=== PATIENT | female | born 2000 | race Caucasian/White ===

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

== ENCOUNTER 2019-02-05 16:07 | Emergency (ER) | payer SELFPAY ==
[2019-02-05 16:14] VITALS: BP 106/63; PULSE 84; RESP 16; TEMP 36.7; O2SAT 98
--- NOTE | 2019-02-05 17:38 | ED.GENADUL_ITS ---
Discharge Plan Disposition Patient Disposition: HOME Condition: Stable Discharge Details Chief Complaint: EyeProblem Clinical Impression: Hordeolum externum (stye) Primary Care Provider: Zhane Doyle V ED Provider: William Hernandez Home Meds and New Rx's Prescriptions: Continued sertraline 25 mg tablet 25 mg PO DAILY MDD 75 Qty: 60 RF: 1 sertraline 50 mg tablet 50 mg PO DAILY MDD 75 Qty: 60 RF: 1 melatonin 3 mg tablet 3 mg PO HS PRN (Reason: sleep) Qty: 30 RF: 2 Nexplanon 68 mg implant 1 implant SBD ONCE Qty: 1 RF: 0 levonorgestrel [Plan B One-Step] 1.5 mg tablet 1.5 mg PO ONCE Qty: 1 RF: 0 Discharge Instructions Instructions: Renetta (ED) Additional Instructions: Please apply warm compresses to your right eye at least 4 times a day for the next couple days. Continue to monitor this and return immediately for any signs of infection. It is also recommended that you change out any of your make-up brushes. If not improving over the next couple weeks you may also follow-up with your primary care provider or [facility] for reassessment. Referrals: Zhane Doyle MD [Primary Care Provider] - (As needed for reassessment) Discharge Data Discharge Date/Time-TO BE ENTERED AT DEPARTURE: 02/05/19 17:46 Medical Decision Making 2 days ago patient noticed a swelling lump to the right inner canthus of her lower lid. Patient has physical exam findings consistent with stye. No signs of infection and eye exam is otherwise unremarkable. Discussed with patient warm compresses and to follow-up with primary care provider or [facility] for reassessment if not improving over the next couple weeks or to return immediately for any signs of infection. HPI General Mode of arrival: ambulatory . Date/Time Provider Initiated Documentation: 02/05/19 16:41 . Limitations to Documentation: no limitations . Information obtained by: patient . History of Present Illness 18 year old F presents to the emergency department with the chief complaint of right eye swelling, Quality is described as other (denies pain), and is localized to the eyes and right. Patient started experiencing this day(s) (2) and it has been constant. No relieving factors improve symptom(s), No exacerbating factors reported . Patient notes no other symptoms.. Patient did receive the following treatments prior to arrival, none Related Data Home Medications Medication Instructions Recorded Confirmed levonorgestrel 1.5 mg tablet 1.5 mg PO ONCE #1 tab 05/29/18 08/24/18 melatonin 3 mg tablet 3 mg PO HS PRN #30 tab 08/10/18 08/24/18 sertraline 25 mg tablet 25 mg PO DAILY #60 tab MDD 75 08/10/18 08/24/18 sertraline 50 mg tablet 50 mg PO DAILY #60 tab MDD 75 08/10/18 08/24/18 etonogestrel 68 mg subdermal 1 implant SBD ONCE #1 each 08/24/18 08/24/18 implant Previous Rx's Medication Instructions Recorded levonorgestrel 1.5 mg tablet 1.5 mg PO ONCE #1 tab 05/29/18 melatonin 3 mg tablet 3 mg PO HS PRN #30 tab 08/10/18 sertraline 25 mg tablet 25 mg PO DAILY #60 tab MDD 75 08/10/18 sertraline 50 mg tablet 50 mg PO DAILY #60 tab MDD 75 08/10/18 etonogestrel 68 mg subdermal 1 implant SBD ONCE #1 each 08/24/18 implant Allergies Allergy/AdvReac Type Severity Reaction Status Date / Time No Known Allergies Allergy Unverified 02/05/19 16:17 General Stated Complaint: EyeProblem LICHA: 4 Review of Systems Constitutional Denies fever(s) and Denies headache(s) Eyes Reports as per HPI, Denies blurry vision, Denies diplopia, Denies eye discharge, Denies irritation, Denies itchy eyes, Denies loss of vision and Denies eye pain ENT Denies headache(s), Denies nasal congestion and Denies nasal discharge Neurologic Denies headache(s) and Denies loss of vision Allergic/Immunologic Denies itchy eyes PFSH Family History Mother Breast cancer Cancer of kidney Father Diabetes Essential hypertension Stroke Brother Essential hypertension Social History Smoking/Tobacco Use Status: Never Drug use: Never Do you feel safe in your relationship?: Yes Additional Social history: kicked out of mothers house, living w/ sister Female Reproductive History Menstrual control method: implanted (placed by Jhoana Addison NP [id number] EXP=11/2020) History History 2 Para 0 Hx # Term Pregnancies Multiple births Hx # Pregnancies Ectopic pregnancies AB induced 1 Hx Number of Living Children AB spontaneous 1 Exam Const General: cooperative, no acute distress and not ill appearing Orientation: alert, awake and oriented x3 HENMT Mouth: moist mucous membranes Eyes Visual [place]: normal visual monroy by confrontation Alignment and Position: alignment normal and position normal Periorbital: periorbital findings normal Eyelids: eyelid abnormality right lower eyelid swelling (Lower right inner canthus); without erythema Conjunctivae: conjunctivae normal Sclera: sclerae normal Pupils: PERRL and accommodation normal EOM: EOM intact bilaterally Resp Effort & Inspection: normal respiratory effort, able to speak in complete sentences and no respiratory distress Course Vital Signs Temperature 36.7 C 02/05/19 16:14 Pulse 84 02/05/19 16:14 Respiratory Rate 16 02/05/19 16:14 Blood Pressure 106/63 02/05/19 16:14 Pulse Oximetry 98 02/05/19 16:14 Temperature 36.7 C 02/05/19 16:14 Temperature Source Skin 02/05/19 16:14 Pulse 84 02/05/19 16:14 Respiratory Rate 16 02/05/19 16:14 Blood Pressure 106/63 02/05/19 16:14 Blood Pressure Position Sitting 02/05/19 16:14 Pulse Oximetry 98 02/05/19 16:14 Oxygen Delivery Method Room Air 02/05/19 16:14 Oxygen Flow Rate 0 02/05/19 16:14
== END 2019-02-05 17:46 | disposition home or self-care (01) ==
PROVIDERS: Emergency Provider Nurse Practitioner Family; PCP Pediatrics
DX: H00.022 Hordeolum internum right lower eyelid (principal)
CPT/HCPCS: 99282

== ENCOUNTER 2019-05-22 22:02 | Emergency (ER) | payer SELFPAY ==
[2019-05-22 22:07] VITALS: BP 114/70; PULSE 80; RESP 16; TEMP 36.6; O2SAT 98
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
[2019-05-22] MEDS: Ibuprofen 600 MG TAB PO (22:39)
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
[2019-05-22 23:30] VITALS: BP 107/78; PULSE 71; RESP 16; TEMP 36.6; O2SAT 100
--- NOTE | 2019-05-22 23:30 | NUR.NOTE ---
Splint to right wrist, educated on use. Discharge instructions reviewed with verbal understanding. aware to f/u with pcp as needed. ambulated to exit with steady gait.
== END 2019-05-22 23:30 | disposition home or self-care (01) ==
PROVIDERS: Emergency Provider Emergency Medicine; PCP Nurse Practitioner
DX: S60.221A Contusion of right hand, initial encounter (principal); S63.501A Unspecified sprain of right wrist, initial encounter; W22.8XXA Striking against or struck by other objects, initial encounter
CPT/HCPCS: 99284; 73110; 73130; 99282; L3908

== ENCOUNTER 2019-09-02 17:35 | Emergency (ER) | payer SELFPAY ==
[2019-09-02 17:38] VITALS: BP 114/57; PULSE 84; RESP 18; TEMP 36.5; O2SAT 100
[2019-09-02 17:52] LABS: Bilirubin Negative (Negative); Blood Trace-intact (Negative); Clarity Cloudy (Clear); Glucose Negative (Negative); Ketones Negative (Negative); Leukocyte Esterase Negative (Negative); Nitrite Negative (Negative)
[2019-09-02 18:01] LABS: Bacteria Packed HPF (Negative); C & S Indicated? Yes; Crystals Negative HPF (Negative); Epithelial Cells Many HPF (Negative); Mucus Negative (Negative); RBC 0-2 HPF (0-2)
[2019-09-02] MEDS: Ketorolac 30 MG/ML VIAL IVP (18:35)
[2019-09-02 18:46] LABS: Abs Immature Grans 0.02 k/cumm (0.0-0.09); Absolute Basophil Count 0.05 k/cumm (0.0-0.2); Absolute Eosinophil Count 0.33 k/cumm (0.0-0.7); Absolute Monocyte Count 1.14 k/cumm (0.11-0.7); Absolute Neutrophil Count 7.01 k/cumm (1.2-6.7); Basophils % 0.5; HCT 37.5 % (36.0-46.0); HGB 13.1 g/dL (12.0-15.5); Immature Grans % 0.2 %; Lymphocytes % 21.9; Mean Corp. HGB Concentration 34.9 g/dL (32.0-36.0); Mean Corpuscular Hemoglobin 31.7 pg (27.0-33.0); Mean Corpuscular Volume 90.8 fL (80-95); Monocytes % 10.4; Platelet Count 310 x1000/uL (130-400); RBC 4.13 m/cumm (4.00-5.20); RBC Distribution Width 12.6 % (11.7-14.6); White Blood Cell Count 10.95 k/cumm (4.4-10.8)
[2019-09-02 19:12] LABS: ALT 23 U/L (14-59); AST 16 U/L (15-37); Albumin 3.8 g/dL (3.4-5.0); Alkaline Phosphatase 58 U/L (46-116); Anion Gap 9.2 mmol/L (3-11); BUN 9 mg/dL (7-18); Bilirubin, Total 0.5 mg/dL (0.2-1.0); CO2 26.8 mmol/L (21.0-32.0); CREATININE 0.63 mg/dL (0.55-1.02); Calcium 8.3 mg/dL (8.5-10.1); Chloride 105 mmol/L (98-107); Glucose 86 mg/dL (74-106); Potassium 3.8 mmol/L (3.5-5.1); Sodium 141 mmol/L (136-145); Total Protein 7.4 g/dL (6.4-8.2)
--- NOTE | 2019-09-02 19:14 | NUR.NOTE ---
Assumed care of pt. Report from Jackelyn. Lying in bed in NAD, family at bedside. Reports pain improved to 4/10, worse with movement. awaiting lab results, provided with snack.
[2019-09-02 19:25] VITALS: BP 101/70; PULSE 70; RESP 16; TEMP 36.6; O2SAT 100
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
[2019-09-02] MEDS: MacroBID 100 MG CAP PO ×2 (19:35→19:57)
--- NOTE | 2019-09-03 11:48 | PDOC.ERCMPRO ---
- If Service Date Differs Date of service: 09/03/19 Time of Service: 11:48 Care Management Progress Note SWEETIE contacts Kathie by telephone to discuss referrals, health insurance, and medication issues. Kathie already met with Angel at [facility] this morning to address her lack of health insurance. She, however, did not discuss with Angel her inability to pay for the medication prescribed by ED provider yesterday. SWEETIE speaks with Nelsy at [facility] to request their assistance in paying for the medication. Nelsy agrees to follow-up with the pharmacy. SWEETIE also faxes referrals to [facility] on behalf of patient.
== END 2019-09-02 20:00 | disposition home or self-care (01) ==
PROVIDERS: Emergency Provider Physician Assistant; PCP Nurse Practitioner
DX: N39.0 Urinary tract infection, site not specified (principal); B96.89 Other specified bacterial agents as the cause of diseases classified elsewhere; R10.30 Lower abdominal pain, unspecified; N93.9 Abnormal uterine and vaginal bleeding, unspecified
CPT/HCPCS: 80053; 81025; 87077; 96374; 99284; 81003; 81015; 85025; 87086; 87186; 99283; J1885

== ENCOUNTER 2019-09-04 18:50 | Outpatient (REF) | payer SELFPAY ==
[2019-09-06 12:33] LABS: Chlamydia Result Negative (Negative); GC Result Negative (Negative)
== END 2019-09-04 19:10 ==
LOC: LBN 18:50
PROVIDERS: PCP Nurse Practitioner; Visit Provider Nurse Practitioner Women's Health
DX: Z11.3 Encounter for screening for infections with a predominantly sexual mode of transmission (principal)
CPT/HCPCS: 87491; 87591

== ENCOUNTER 2019-09-07 04:15 | Outpatient (CLI) | payer SELFPAY ==
--- NOTE | 2019-09-07 07:45 | DI.US_ITS ---
EXAM: US PELVIS TRANSVAGINAL CLINICAL HISTORY: pelvic pain, R10.2 TECHNIQUE: Transabdominal and transvaginal exams were performed. COMPARISON: No exams were available for comparison FINDINGS: The uterus measures 7.8 x 2.8 x 4.4 cm. The endometrial stripe measures 3 millimeters in thickness. Follicles are seen on both ovaries. No cyst or mass is seen. There is no evidence of torsion. Th ere is no evidence of free fluid or hydronephrosis. IMPRESSION: Negative pelvic ultrasound. DATA REPOSITORY:
== END 2019-09-07 04:35 ==
PROVIDERS: PCP Nurse Practitioner; Visit Provider Nurse Practitioner Women's Health
DX: R10.2 Pelvic and perineal pain (principal)
CPT/HCPCS: 76830; 76856

== ENCOUNTER 2019-10-18 14:07 | Emergency (ER) | payer MEDICAID, SELFPAY ==
[2019-10-18 14:11] VITALS: BP 111/72; PULSE 96; RESP 18; TEMP 36.8; O2SAT 97
--- NOTE | 2019-10-18 14:28 | ED.GENADUL_ITS ---
Discharge Plan Disposition Patient Disposition: HOME Condition: Stable Discharge Details Chief Complaint: Sorethroat Clinical Impression: Pharyngitis Primary Care Provider: None,None ED Provider: Dipesh Grissom Home Meds and New Rx's Prescriptions: No Action Nexplanon 68 mg implant 1 implant SBD ONCE Qty: 1 RF: 0 Discharge Instructions Instructions: Pharyngitis (ED) Additional Instructions: Rapid strep test is negative, culture pending. [id number] medications as directed for discomfort. Practice good handwashing. I have given you a return to work note. Please watch for new or worsening symptoms and return to the ER for any concerns Stand Alone Forms: Work Release Medical Decision Making 19-year-old female presenting to the ER requesting a note so that she may return to work. Patient reports that she has not been around anyone who is known Covid positive, nor has she had any recent travel. Denies any shortness of breath, cough, or documented fever. 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 Patient appears well, nontoxic. No clear indication for Covid testing Rapid strep negative, culture pending Medical Records Medical records reviewed: Yes I reviewed the patient's medical records. HPI General Mode of arrival: ambulatory . Date/Time Provider Initiated Documentation: 10/18/19 14:08 . Limitations to Documentation: no limitations . Information obtained by: patient . HPI Narrative: 19-year-old female presents to the ER today requesting a work note stating that she may return to work does not have strep throat. She reports mild global headache, nasal congestion, sore throat, subjective fever for the past 4 or 5 days, symptoms are improving. She has taken owqx-jzu-koyaogm medication with decent resolution of her symptoms. She reports that her siblings were diagnosed with strep throat 2 days ago. Patient does not personally believe that she has strep throat and only has a common cold. She denies ear pain, neck pain, cough, shortness of breath, pains in her chest and abdominal pain, nausea, vomiting, dysuria, skin rash Related Data Home Medications Medication Instructions Recorded Confirmed etonogestrel 68 mg subdermal 1 implant SBD ONCE #1 each 08/24/18 10/18/19 implant Previous Rx's Medication Instructions Recorded etonogestrel 68 mg subdermal 1 implant SBD ONCE #1 each 08/24/18 implant Allergies Allergy/AdvReac Type Severity Reaction Status Date / Time sertraline AdvReac increased Unverified 10/18/19 14:16 anxiety and depression General Stated Complaint: Sorethroat LICHA: 4 Review of Systems Constitutional Constitutional: Reports fever(s) (Subjective) Eyes Eyes: Denies eye discharge ENT Ears, Nose, Mouth, and Throat: Denies otalgia, Reports nasal congestion and Rep orts sore throat Cardiovascular Cardiovascular: Denies chest pain and Denies dyspnea Respiratory Respiratory: Denies cough and Denies dyspnea Gastrointestinal Gastrointestinal: Denies abdominal pain, Denies diarrhea, Denies nausea and Denies vomiting Genitourinary Genitourinary: Denies dysuria Musculoskeletal Musculoskeletal: Denies myalgias Integumentary/Breasts Skin/Breast: Denies rash PFSH Family History Mother Breast cancer Cancer of kidney Father Diabetes Essential hypertension Stroke Brother Essential hypertension Social History Smoking/Tobacco Use Status: Never Alcohol Intake: current Alcohol Intake frequency: holidays/special occasions only Drug use: Occasionally Substance use type: does not use and marijuana Do you feel safe at home: Yes Do you feel safe in your relationship?: Yes Additional Social history: kicked out of mothers house, living w/ sister Female Reproductive History Menstrual control method: implanted (placed by Jhoana Addison NP JCZ=[id number] EXP=11/2020) History History 2 Para 0 Hx # Term Pregnancies Multiple births Hx # Pregnancies Ectopic pregnancies AB induced 1 Hx Number of Living Children AB spontaneous 1 Exam Const General: cooperative, healthy appearing, comfortable and no acute distress Orientation: alert, awake and oriented x3 HENMT Head: normal to inspection, normocephalic and atraumatic Ears: external ears normal, TM's normal bilaterally and EAC's normal Mouth: moist mucous membranes Throat: posterior oropharynx normal Eyes Conjunctivae: conjunctivae normal Neck Neck: normal visual inspection, full ROM, no lymphadenopathy, no meningeal signs, trachea midline and supple Resp Effort & Inspection: normal respiratory effort and able to speak in complete sentences Auscultation: clear to auscultation bilaterally Cardio Rate: regular rate Rhythm: regular rhythm Skin General skin exam: no rashes or lesions noted Neuro General: patient alert, patient awake, moves all extremities and no focal motor deficits Sensory Exam: no sensory deficits noted Psych Appearance: grossly normal Mental Status: mental status grossly normal Course Vital Signs Vital signs: Vital Signs Temperature 36.8 C 10/18/19 14:11 Pulse 96 H 10/18/19 14:11 Respiratory Rate 18 10/18/19 14:11 Blood Pressure 111/72 10/18/19 14:11 Pulse Oximetry 97 10/18/19 14:11 Temperature 36.8 C 10/18/19 14:11 Temperature Source Temporal Artery Scan 10/18/19 14:11 Pulse 96 H 10/18/19 14:11 Respiratory Rate 18 10/18/19 14:11 Respiratory Effort Non-Labored 10/18/19 14:15 Blood Pressure 111/72 10/18/19 14:11 Blood Pressure Position Sitting 10/18/19 14:11 Pulse Oximetry 97 10/18/19 14:11 Oxygen Delivery Method Room Air 10/18/19 14:11 Oxygen Flow Rate 0 10/18/19 14:11 Pain Level 8 10/18/19 14:11
== END 2019-10-18 14:50 | disposition home or self-care (01) ==
LOC: ER 14:48
PROVIDERS: Emergency Provider Physician Assistant; PCP Nurse Practitioner
DX: J02.9 Acute pharyngitis, unspecified (principal)
CPT/HCPCS: 87880; 99282; 87081

== ENCOUNTER 2020-02-11 09:28 | Emergency (ER) | payer MEDICAID, SELFPAY ==
[2020-02-11 09:32] VITALS: BP 103/59; PULSE 77; RESP 16; TEMP 36.5; O2SAT 96
--- NOTE | 2020-02-11 09:45 | DI.CT_ITS ---
EXAM: CT THORACIC LUMBAR SPINE WO CLINICAL HISTORY: low back pain right, fell from tree, paresthesias TECHNIQUE: COMPARISON: No exams were available for comparison FINDINGS: CT examination the thoracic and lumbar spine was performed utilizing multi slice acquisition and mult iplanar reconstruction. Visualized portions of the lungs are clear. No mediastinal hematoma. Unrem arkable appearance of visualized portions of the kidneys and aorta. No pelvic hematoma. No paraspin al hematoma. No evidence of fracture of the thoracic or lumbar spine. Intervertebral disc spaces are well maintai brittany. SI joints appear intact. IMPRESSION: Negative CT of thoracic and lumbar spine. No evidence of acute trauma.
--- NOTE | 2020-02-11 09:46 | ED.GENADUL_ITS ---
Discharge Plan Disposition Patient Disposition: HOME Condition: Stable Discharge Details Chief Complaint: Nk/Back Pain Clinical Impression: Fall from tree, Contusion of lower back Primary Care Provider: None,None ED Provider: Nacho Sauer Discharge Instructions Instructions: Contusion in Adults (ED) Additional Instructions: Please rest at home over the next few days. Avoid any activities that worsen pain. Please take ibuprofen over the counter. Take 600mg by mouth every 6 hours as needed for pain. Please take acetaminophen (tylenol) - 650mg every 6 hours by mouth as needed for pain. Use [id number] lidocaine patches. Dose according to label. Please contact your primary care physician to arrange follow-up. Return to the ER for any worsening or new concerning symptoms including return of any neurologic symptoms including numbness or weakness. Referrals: Ingris Fry [Emergency Nurse] - Discharge Data Discharge Date/Time-TO BE ENTERED AT DEPARTURE: 02/11/20 11:18 Medical Decision Making 10:00??19-year-old female presents 2 days after 11 foot fall with injury to her low back, here with persistent low back pain, paresthesias to her bilateral ante rior thighs that have now resolved, no bowel or bladder dysfunction. Patient is focally tender midline lower thoracic and lumbar spine. She has no saddle anesthesia. Strength and sensation intact bilateral lower extremities. Given mechanism of injury and exam findings with history of paresthesias I am concerned about the potential for spinal fracture. Plan to obtain CT of the lumbar and thoracic spine. Patient is hemodynamically stable. Abdominal exam benign. 11:00 --CT interpreted by radiology: Negative, no fracture, no injury Suspect spinal contusion. Given neurologic symptoms have resolved, plan will be to continue with NSAIDs and have her follow-up with her primary care physician. Usual customary discharge instructions were reviewed with the patient. HPI General Mode of arrival: ambulatory . Date/Time Provider Initiated Documentation: 02/11/20 09:43 . Limitations to Documentation: no limitations . Information obtained by: patient . HPI Narrative: 19-year-old female presents with chief complaint of back pain. Patient notes 2 days ago she fell approximately 11 feet from a tree to the ground. Back pain is localized to low back, worse on right side. Pain has persisted and is fairly constant. Pain worse with certain positions including lying flat on her back. She notes that she initially had tingling numbness bilateral lower extremities anterior thighs. This numbness persisted yesterday and has resolved today. She has been using ibuprofen. No associated bowel or bladder dysfunction. No abdominal pain. She did hit her head but denies headache or loss of consciousness. Related Data Allergies Allergy/AdvReac Type Severity Reaction Status Date / Time sertraline AdvReac increased Unverified 02/11/20 09:39 anxiety and depression General Stated Complaint: Nk/Back Pain LICHA: 4 Review of Systems All systems reviewed & are unremarkable except as noted in HPI and below Cardiovascular Cardiovascular: Denies chest pain and Denies dyspnea Respiratory Respiratory: Denies dyspnea Gastrointestinal Gastrointestinal: Denies abdominal pain Musculoskeletal Musculoskeletal: Reports as per HPI Neurologic Neurologic: Reports as per HPI PFSH Family History Mother Breast cancer Cancer of kidney Father Diabetes Essential hypertension Stroke Brother Essential hypertension Social History Smoking/Tobacco Use Status: Never Alcohol Intake: current Alcohol Intake frequency: holidays/special occasions only Drug use: Occasionally Substance use type: does not use and marijuana Do you feel safe at home: Yes Do you feel safe in your relationship?: Yes Additional Social history: kicked out of mothers house, living w/ sister Female Reproductive History Menstrual control method: implanted (placed by Jhoana Addison NP OHK=[id number] EXP=11/2020) History History 2 Para 0 Hx # Term Pregnancies Multiple births Hx # Pregnancies Ectopic pregnancies AB induced 1 Hx Number of Living Children AB spontaneous 1 Exam Const General: cooperative and no acute distress HENUT Head: normocephalic and atraumatic Mouth: moist mucous membranes Neck Neck: trachea midline and supple Resp Auscultation: clear to auscultation bilaterally, no rales, no rhonchi and no wheezes Cardio Rate: regular rate and not tachycardic Rhythm: regular rhythm GI Palpation: soft, not firm, no guarding, no masses, not rigid and nontender Back/Spine/Pelvis Cervical Spine: cervical ROM normal, No cervical spinal tenderness and No step off deformity Thoracic/Lumbar Spine: paraspinal tenderness (Right lumbar), thoracic spinal tenderness (Low thoracic midline) and lumbar spinal tenderness (Midline) Skin General skin exam: no rashes or lesions noted Neuro General: patient alert, patient awake, patient oriented x3 and tone normal Cognition: normal cognition Speech: speech normal Motor: strength 5/5 throughout (Bilateral lower extremities) Sensory Exam: no sensory deficits noted (Bilateral lower extremities including no saddle anesthesia) Extrem General: no edema Psych Appearance: grossly normal Mental Status: mental status grossly normal Course Vital Signs Vital signs: Vital Signs Temperature 36.5 C 02/11/20 09:32 Pulse 77 02/11/20 09:32 Respiratory Rate 16 02/11/20 09:32 Blood Pressure 103/59 L 02/11/20 09:32 Pulse Oximetry 96 02/11/20 09:32 Temperature 36.5 C 02/11/20 09:32 Temperature Source Skin 02/11/20 09:32 Pulse 77 02/11/20 09:32 Respiratory Rate 16 02/11/20 09:32 Respiratory Effort Non-Labored 02/11/20 09:37 Blood Pressure 103/59 L 02/11/20 09:32 Blood Pressure Position Sitting 02/11/20 09:32 Pulse Oximetry 96 02/11/20 09:32 Oxygen Delivery Method Room Air 02/11/20 09:32 Oxygen Flow Rate 0 02/11/20 09:32 Pain Level 5 02/11/20 09:39
[2020-02-11] MEDS: Lidocaine 5% Patch 1 PATCH TP (10:51)
[2020-02-11 11:12] VITALS: BP 102/68; PULSE 56; RESP 18; TEMP 36.7; O2SAT 99
== END 2020-02-11 11:18 | disposition home or self-care (01) ==
PROVIDERS: Emergency Provider Student in an Organized Health Care Education/Training Program
DX: S30.0XXA Contusion of lower back and pelvis, initial encounter (principal); W17.89XA Other fall from one level to another, initial encounter; R20.2 Paresthesia of skin
CPT/HCPCS: 81025; 99284; 72128; 72131; 99285

== ENCOUNTER 2020-04-13 03:33 | Emergency (ER) | payer MEDICAID, SELFPAY ==
[2020-04-13] VITALS (40 sets, daily range): BP systolic 69–113; BP diastolic 27–82; PULSE 81–132; RESP 13–30; TEMP 36.8; O2SAT 97–100
--- NOTE | 2020-04-13 03:30 | RT.EKG_ITS ---
APPROVED REPORT Exam: Resting ECG Patient Location: E HR:133 bpm ECG Measurements Heart Rate 133 AXIS NE 142 P 70 QRSd 86 QRS 78 QT 305 T -20 QTc 454 Conclusion Sinus tachycardia...rate> 99 Atrial premature complex...SV complex w/ short R-R interval I have reviewed and interpreted ECG and agree with software generated interpretation.
--- NOTE | 2020-04-13 03:46 | W.ED.GENAD ---
Discharge Plan Disposition Patient Disposition: HOME Condition: Good Discharge Details Chief Complaint: GenMedical Clinical Impression: Cannabis intoxication Primary Care Provider: None,None ED Provider: Jus Bautista Home Meds and New Rx's Prescriptions: No Action No Known Home Meds RF: 0 Discharge Instructions Additional Instructions: Avoid drugs in the future. Rest and hydrate over the weekend. Return to ED if any concerns or problems. Please remember to quarantine for 2 weeks after your return from [place]. Medical Decision Making Patient here after smoking and eating marijuana. She is anxious and paranoid as well as tachycardic. Denies other drugs or alcohol. Feels better and safe here. No SI or HI. Was not trying to harm self. Will place IV and give a liter of fluid as well as 0.5 of Ativan. 7 AM: Patient has received 2 L of fluid and had 0.5 mg of Ativan. Heart rate is in the 80s. She feels much better and less anxious. Patient safe for discharge home. HPI General Mode of arrival: EMS. Date/Time Provider Initiated Documentation: 04/13/20 03:46. Limitations to Documentation: no limitations. Information obtained by: patient and EMS. HPI Narrative: Patient presents by EMS after smoking marijuana and eating edibles. Subsequently has developed anxiety, paranoia, feels unsafe. She is not suicidal or homicidal. She has no pain or difficulty breathing. She had episodes of nausea and vomiting and still feels somewhat nauseated now. She was in [place] visiting family. Unclear at this time how long she has been back in [place]. She thinks somewhere between 1 to 2 weeks. She has no COVID symptoms. She feels better and safe now that she is here in the ED. Still feels quite anxious. Related Data Home Medications Medication Instructions Recorded Confirmed Unknown [No Known Home Meds] 04/13/20 04/13/20 Allergies Allergy/AdvReac Type Severity Reaction Status Date / Time sertraline AdvReac increased Unverified 04/13/20 04:22 anxiety and depression General LICHA: 4 Review of Systems Narrative: As documented in HPI otherwise negative as below. Const: no fever, chills, weakness Resp: no cough, SOB, pleuritic pain CV: no CP, diaphoresis, edema, syncope GI: no abdominal pain, diarrhea Neuro: no numbness, focal weakness, confusion [facility] Medical History Depression Surgical History No significant past surgical history Family History Mother Breast cancer Cancer of kidney Father Diabetes Essential hypertension Stroke Brother Essential hypertension Social History Smoking/Tobacco Use Status: Never Alcohol Intake: current Alcohol Intake frequency: holidays/special occasions only Drug use: Occasionally Substance use type: marijuana Do you feel safe at home: Yes Do you feel safe in your relationship?: Yes Additional Social history: kicked out of mothers house, living w/ sister. 03/14/20 Currently living with her Grandmother. Female Reproductive History Menstrual control method: implanted (placed by Jhoana Addison NP [id number]=[id number] EXP=11/2020) History History 2 Para 0 Hx # Term Pregnancies Multiple births Hx # Pregnancies Ectopic pregnancies AB induced 1 Hx Number of Living Children AB spontaneous 1 Exam Narrative Exam Narrative: Vitals: She is afebrile here. She is tachycardic into the 130 range. Normal blood pressure and room air pulse ox. Const: WDWN female in NAD. HEENT: NC/AT. Normal facial exam. Eyes: Dilated pupils that are reactive. Neck: Supple. Trachea midline. Lungs: Normal respiratory effort. Lungs are clear. Cor: RRR without murmur/gallop. Good radial pulses. Neuro: A+O x 3. Normal speech, mentation, gait. Cranial nerves II - XII grossly intact. No gross motor or sensory deficit. Ext: No C/C/E. Skin: Warm and dry without rash. Psych: Anxious, no SI or HI, no overdose was simply trying to get high
[2020-04-13] MEDS: Lactated Ringers 1,000 ML 1000 ML IV ×2 (04:24→04:59)
[2020-04-13] MEDS: LORazepam 2 MG/ML VIAL 0.5 MG IVP (04:25)
--- NOTE | 2020-04-13 04:56 | NUR.NOTE ---
Nursing Note: States she is feeling less anxious.
--- NOTE | 2020-04-13 05:53 | NUR.NOTE ---
Nursing Note: Discussed HR in one teens, soft B/P trend and 2 liters of LR have infused with Dr. Bautista. Will let patient continue to sleep. Patient wakes when you open the door to room.
== END 2020-04-13 07:40 | disposition home or self-care (01) ==
PROVIDERS: Emergency Provider Emergency Medicine
DX: F12.180 Cannabis abuse with cannabis-induced anxiety disorder (principal); F23 Brief psychotic disorder; R00.0 Tachycardia, unspecified
CPT/HCPCS: 81025; 93005; 96361; 96374; 99284; 93010; J2060

== ENCOUNTER 2020-04-29 21:06 | Emergency (ER) | payer MEDICAID, SELFPAY ==
[2020-04-29 21:09] VITALS: BP 117/68; PULSE 74; RESP 16; TEMP 36.5; O2SAT 99
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
--- NOTE | 2020-04-30 04:05 | NUR.NOTE ---
referral to care management for a pcp and a follow up about wrist pain in 2 weeks faxed out 04/30/20 [phone] - [facility] Nursing Note:
--- NOTE | 2020-05-01 10:12 | PDOC.ERCMPRO ---
- If Service Date Differs Date of service: 05/01/20 Time of Service: 10:12 Care Management Progress Note Kathie is seen in the ED on 04/29/20 for contusion of her left hand. At the request of JENNIFER Wakefield, ED provider, SWEETIE coordinates referral to [place] NP, of [facility], on-call provider, to assist patient in obtaining a follow up appointment and in establishing care with PCP. Kathie has Medicaid for insurance.
== END 2020-04-29 21:58 | disposition home or self-care (01) ==
PROVIDERS: Emergency Provider Physician Assistant
DX: S60.512A Abrasion of left hand, initial encounter (principal); V48.5XXA Car driver injured in noncollision transport accident in traffic accident, initial encounter
CPT/HCPCS: 29125; 81025; 99284; 73110; 73130; 99283; L3908

== ENCOUNTER → 2020-07-25 15:11 | Outpatient (REF) | payer MEDICAID, SELFPAY ==
--- NOTE | 2020-07-25 14:40 | PAPFT_PTH ---
PATIENT: Kathie Ureña LOC: [facility] U#:[id number] AGE/SX: 25/F ROOM: RE07/25/[address]: PAPI Melgar : 2000 BED: DIS: SPEC #: [id number] RECD: 07/25/20 16:47 STATUS: PONCHO MARKS #: [id number] MARIANNA: 07/25/20 14:[address]: Anny Abreu DEPT: [facility] Cytology RECD BY: Julia Quinonez ENTERED: 07/25/20 16:47 SP TYPE: PAPFT OTHR DR: None Tissues: 1 - CX/ENDOCX FOR PAP SMEARS Procedures: PAP THIN PREP/UVM Screening Comments: [id number]
[2020-07-28 14:08] LABS: GC Result Negative (Negative)
[2020-07-28 16:01] LABS: Chlamydia Result Positive (Negative)
== END ==
LOC: LBN 15:11
PROVIDERS: Visit Provider Nurse Practitioner Family
DX: Z12.4 Encounter for screening for malignant neoplasm of cervix (principal); Z11.3 Encounter for screening for infections with a predominantly sexual mode of transmission
CPT/HCPCS: 87491; 87591; 88142

== ENCOUNTER 2020-09-18 23:47 | Emergency (ER) | payer MEDICAID, SELFPAY ==
--- NOTE | 2020-09-18 23:49 | ED.GENADUL_ITS ---
Discharge Plan Disposition Patient Disposition: HOME Condition: Good Discharge Details Clinical Impression: Injury of left shoulder Primary Care Provider: None,None ED Provider: Jus Bautista Meds and New Rx's Prescriptions: Continued norgestimate-ethinyl estradiol [Sprintec (28)] 0.25-35 mg-mcg tablet 1 tab PO DAILY Qty: 84 RF: 3 Discharge Instructions Instructions: Early Postoperative or Post Injury Shoulder Exercises (ED) Additional Instructions: X-rays of the left shoulder are negative for fracture or dislocation. Injury is likely contusion to the rotator cuff and should improve over time with rest, ice, nonsteroidals. Sling for comfort but be sure to do range of motion exercises to keep your shoulder loose. Follow-up with occupational health next available appointment. Referrals: Occupational Medicine [Outside] Medical Decision Making Suspect this is all contusion to the rotator cuff. Doubt fracture though she is tender over the distal clavicle/AC joint area so x-ray will be obtained. If negative ice and nonsteroidals. Sling for comfort. Follow-up with occupational health. X-ray negative per my review. Sling for comfort, discharge and follow-up with occupational health. HPI General Mode of arrival: ambulatory . Date/Time Provider Initiated Documentation: 09/18/20 23:48 . Limitations to Documentation: no limitations . Information obtained by: patient and RN notes reviewed . HPI Narrative: Patient presents to ED with left shoulder injury that she sustained at work yesterday. She reports having a metal box fall striking her directly on the left shoulder. She continues to have pain today despite nonsteroidal use. She is unable to lift her arm above her head at all and is therefore unable to do her job. She sent in from work [employer] to the ED for evaluation. Pain is top of the shoulder. There is no numbness or weakness distally. There was no other injury and she was not struck anywhere in the head or neck. She is right-hand dominant. Related Data Home Medications Medication Instructions Recorded Confirmed norgestimate 0.25 mg-ethinyl 1 tab PO DAILY #84 tab 07/25/20 09/19/20 estradiol 35 mcg tablet Previous Rx's Medication Instructions Recorded norgestimate 0.25 mg-ethinyl 1 tab PO DAILY #84 tab 07/25/20 estradiol 35 mcg tablet Allergies Allergy/AdvReac Type Severity Reaction Status Date / Time sertraline AdvReac increased Unverified 09/19/20 00:08 anxiety and depression General LICHA: 4 Review of Systems Narrative: As documented in HPI otherwise negative as below. Const: no fever Resp: no cough, SOB CV: no CP Neuro: no headache, numbness, focal weakness PFSH Medical History Depression Surgical History No significant past surgical history Family History Mother Breast cancer Cancer of kidney Father Diabetes Essential hypertension Stroke Brother Essential hypertension Social History Smoking/Tobacco Use Status: Never Smoking risk assessment performed?: Yes Alcohol Intake: current Alcohol Intake frequency: holidays/special occasions only Drug use: Occasionally Substance use type: marijuana Do you feel safe at home: Yes Do you feel safe in your relationship?: Yes Additional Social history: kicked out of mothers house, living w/ sister. 03/14/20 Currently living with her Grandmother. Female Reproductive History Menstrual control method: implanted (placed by Jhoana Addison NP [id number]=[id number] EXP=11/2020) History History 2 Para 0 Hx # Term Pregnancies Multiple births Hx # Pregnancies Ectopic pregnancies AB induced 1 Hx Number of Living Children AB spontaneous 1 Exam Narrative Exam Narrative: Const: WDWN female in NAD. HEENT: NC/AT. Normal facial exam. Neck: Supple. Trachea midline. Lungs: Normal respiratory effort. Cor: Good radial pulses. Neuro: A+O x 3. Normal speech, mentation, gait. Cranial nerves II - XII grossly intact. No gross motor or sensory deficit. Ext: Left upper extremity with no deformity. Tender along the upper portion of the shoulder especially the AC joint.. Pain with both active and passive range of motion. Unable to bring her arm up over her head and elbow without significant pain. Neurovascularly intact distally.
[2020-09-18 23:52] VITALS: BP 105/58; PULSE 84; RESP 16; TEMP 36.7; O2SAT 97
--- NOTE | 2020-09-19 | DI.RAD_ITS ---
EXAM: XR SHOULDER LT COMPLETE 2+V CLINICAL HISTORY: trauma. TECHNIQUE: 2D digital imaging was performed. COMPARISON: No exams were available for comparison FINDINGS: BONES: No acute fracture is present. No bony destructive lesion is seen. JOINTS: No dislocation present. SOFT TISSUE: Normal. IMPRESSION: Unremarkable radiographs of the left shoulder. DATA REPOSITORY: RADIATION DOSE DELIVERED:
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
== END 2020-09-19 00:48 | disposition home or self-care (01) ==
PROVIDERS: Emergency Provider Emergency Medicine
DX: S49.92XA Unspecified injury of left shoulder and upper arm, initial encounter (principal); W20.8XXA Other cause of strike by thrown, projected or falling object, initial encounter; Y99.0 Civilian activity done for income or pay
CPT/HCPCS: 99283; 73030

== ENCOUNTER 2021-02-02 11:28 | Emergency (ER) | payer MEDICAID, SELFPAY ==
--- NOTE | 2021-02-02 11:30 | ED.GENADUL_ITS ---
Discharge Plan Disposition Patient Disposition: HOME Condition: Stable Discharge Details Clinical Impression: Depression Primary Care Provider: None,None ED Provider: Dipesh Grissom Home Meds and New Rx's Prescriptions: Continued norgestimate-ethinyl estradiol [Sprintec (28)] 0.25-35 mg-mcg tablet 1 tab PO DAILY Qty: 84 RF: 3 Discharge Instructions Instructions: Depression (ED), Anxiety (ED) Additional Instructions: At this time you have been offered a medical screening exam in the ER. Subsequently evaluated mental health team. Please follow the instructions given to you by our mental health team, they will help get you the resources locally that you are looking for.. Please watch for new or worsening symptoms and return to the ER for any concerns. I would like you to reach out to your primary care provider later today or tomorrow to discuss your ER visit and need for outpatient reevaluation. Medical Decision Making 20-year-old female presents requesting a mental health evaluation. Patient states ongoing anxiety depression, worsening after moving back to [place] 10 days ago. She smoked marijuana 2 days ago which she does not typically do, this made her symptoms even worse. She states at that time she had vague passive suicidal ideation but never wanted to act upon it and actually became mad at herself for having such thoughts. Patient denies any suicidal or homicidal ideations. She reports feeling safe. Patient would like to establish mental health care locally which she does not have currently. She is not seeking inpatient therapy. She appears to have very good insight and does not pose any threat to herself or others. I will request a mental health evaluation but will not initiatea CPSO for routine screening laboratory values. Mental health evaluation completed. Please see their note. Patient does not meet involuntary inpatient criteria, is not seeking voluntary placement, plan is for discharge with outpatient resources. I confirmed this with patient, she is comfortable this plan and has no additional questions or concerns. She has a safe place to go. She denies any suicidal or homicidal ideations. Upon discharge patient has no additional questions or concerns. Standard discharge and return precautions given. This documentation was generated using Mobile System 7 system, please disregard any oddities of phrase or misspellings. Medical Records Medical records reviewed: Yes I reviewed the patient's medical records. HPI General Mode of arrival: ambulatory . Date/Time Provider Initiated Documentation: 02/02/21 11:29 . Limitations to Documentation: no limitations . Information obtained by: patient . HPI Narrative: This is a 20-year-old female, reports past medical history of depression, who is recently out of a bad relationship, subsequently moved from [place] to [place] and now to [place] just 10 days ago presenting for increasing anxiety and depression. Patient states that she is very unhappy living in [place], and wishes she had a better support system, and more resources in the community. She has no acute medical concerns or complaints. Patient states that 2 days ago she smoked marijuana which she does not typically do and this caused her symptoms to be worse, at that time she states that she had a vague thoughts of suicide with no specific plan and never wanted to act upon her thoughts. She became angry at herself for having those thoughts in the first place and now she just feels like she is in my own head and cannot get out. Patient denies any active suicidal or homicidal ideations. She reports that she feels safe and has a safe place to be discharged to. She is not requesting inpatient therapy. She is simply hoping to have a mental health evaluation today and help expedite outpatient resources. She contacted the crisis team earlier today but felt as though they were not as helpful over the phone as she hoped, also contacted [facility] as a new primary care provider in the directed her to the ER for further evaluation. Related Data Home Medications Medication Instructions Recorded Confirmed norgestimate 0.25 mg-ethinyl 1 tab PO DAILY #84 tab 07/25/20 09/19/20 estradiol 35 mcg tablet Previous Rx's Medication Instructions Recorded norgestimate 0.25 mg-ethinyl 1 tab PO DAILY #84 tab 07/25/20 estradiol 35 mcg tablet Allergies Allergy/AdvReac Type Severity Reaction Status Date / Time sertraline AdvReac increased Unverified 09/19/20 00:08 anxiety and depression General LICHA: 4 Review of Systems Constitutional Constitutional: Denies fever(s) and Denies headache(s) ENT Ears, Nose, Mouth, and Throat: Denies headache(s) Cardiovascular Cardiovascular: Denies chest pain Respiratory Respiratory: Denies cough Gastrointestinal Gastrointestinal: Denies abdominal pain, Denies nausea and Denies vomiting Musculoskeletal Musculoskeletal: Denies back pain Integumentary/Breasts Skin/Breast: Denies rash Neurologic Neurologic: Denies headache(s) Psychiatric Psychiatric: Reports anxiety, Reports depression, Denies homicidal ideation and Denies suicidal ideation [facility] Medical History Depression Surgical History No significant past surgical history Family History Mother Breast cancer Cancer of kidney Father Diabetes Essential hypertension Stroke Brother Essential hypertension Social History Smoking/Tobacco Use Status: Never Smoking risk assessment performed?: Yes Alcohol Intake: never Drug use: Occasionally Substance use type: marijuana Do you feel safe at home: Yes Do you feel safe in your relationship?: Yes Female Reproductive History Menstrual control method: implanted (placed by Jhoana Addison NP IXE=[id number] EXP=11/2020) History History 2 Para 0 Hx # Term Pregnancies Multiple births Hx # Pregnancies Ectopic pregnancies AB induced 1 Hx Number of Living Children AB spontaneous 1 Exam Const General: cooperative, healthy appearing, comfortable and no acute distress Orientation: alert, awake and oriented x3 HENMT Head: normal to inspection, normocephalic and atraumatic Face and sinus: normal facial exam Mouth: moist mucous membranes Eyes General: appearance normal, both eyes and all related structures Conjunctivae: conjunctivae normal Neck Neck: normal visual inspection, trachea midline and supple Resp Effort & Inspection: normal respiratory effort and able to speak in complete sentences Auscultation: clear to auscultation bilaterally Cardio Rate: regular rate Rhythm: regular rhythm GI Palpation: soft and nontender Back/Spine/Pelvis Back: No back tenderness Skin General skin exam: no rashes or lesions noted Neuro General: patient alert, patient awake, patient oriented x3, moves all extremities and no focal motor deficits Cognition: normal cognition Speech: speech normal Gait: normal gait Sensory Exam: no sensory deficits noted Extrem General: normal to inspection and full ROM Psych Appearance: grossly normal Mental Status: mental status grossly normal Speech and Movement: speech and movement normal Mood: dysthymic mood Affect: sad Attitude: cooperative Thought Process: normal Thought Content: normal Insight: insight good Judgment: judgment good
[2021-02-02 11:35] VITALS: BP 128/72; PULSE 87; RESP 18; TEMP 36.6; O2SAT 95
--- NOTE | 2021-02-02 12:39 | PDOC.CMSAFED ---
- If Service Date Differs Date of service: 02/02/21 Time of Service: 12:39 Care Management Safety Plan Status: Voluntary - Reason for Wait Reason for Wait: Assessment/Screening Chief Complaint: Kathie is a 20 year old female who presents to the ED because of depression and feeling crazy. She reports a history of suicidal ideation in the past but denies current SI, intent or plan of harming herself. Kathie is evaluated by [facility] and is discharged home. CM will respond to ED to assess patient after patient has been medically cleared and assessed by screener. If screener deems patient meets criteria for psychiatric stabilization CM will facilitate interdepartmental huddle with [facility] screener for safety planning considerations and meet with patient to review [facility] policy and safety plan, establish individual wishes for treatment and maintain patient rights. In the interim; please note safety plan below to guide patient care while awaiting further assessment in the ED. SAFETY PLAN: 1. Will remain on suicide precautions and in paper clothes. 2. Per ED provider, direct supervision is not required. 3. May have paper cups, plates, finger foods as well as a cardboard spoon with which to eat meals. 4. Follow [facility] Management of the Admitted Behavioral Health Patient policy. 5. Personal care: Comfort bath system only at this time. 6. Bathroom privileges: with escort in ED. Available in room without limitation on Med/Surg. 6. No personal belongings at this time. 7. No visitors at this time. 8. Phone contact limited to legal contact at this time. 9. Activities: Music tablet per RN discretion. Med/Surg: Television and remote available at RN discretion. 10. Due to VOLUNTARY status, if patient wishes to leave [facility], staff will contact [facility] Crisis Screener ([phone]) and On-Call Medical Equipment Repair Technician ([phone]) as soon as possible. In the event of elopement, notify [place] [employer] [place] Police ([phone]). If deemed appropriate for inpatient psychiatric care, safety plan will be established with patient, and care team, to adhere to patient goals, identify restrictions based on behavioral status, address nutrition, and determine allowed personal belongings, tools for hygiene and personal care. As well plan will determine level of activity including ambulation, level of supervision, visitors, and determine privileges based on level of acuity, behaviors and level of engagement by patient.
[2021-02-02 14:04] VITALS: BP 128/72; PULSE 87; RESP 18; TEMP 36.6; O2SAT 95
== END 2021-02-02 14:15 | disposition home or self-care (01) ==
PROVIDERS: Emergency Provider Physician Assistant
DX: F32.9 Major depressive disorder, single episode, unspecified (principal); F41.9 Anxiety disorder, unspecified
CPT/HCPCS: 99283

== ENCOUNTER 2021-02-26 17:48 | Outpatient (REF) | payer MEDICAID, SELFPAY ==
[2021-02-26 20:27] LABS: Abs Immature Grans 0.02 10^3/uL (0.0-0.06); Absolute Basophil Count 0.09 10^3/uL (0.0-0.2); Absolute Eosinophil Count 0.42 10^3/uL (0.0-0.7); Absolute Lymphocyte Count 2.14 10^3/uL (1.2-3.4); Absolute Monocyte Count 0.68 10^3/uL (0.1-0.8); Absolute Neutrophil Count 4.44 10^3/uL (1.2-6.7); Basophils % 1.2; Eosinophils % 5.4; Immature Grans % 0.3; Lymphocytes % 27.5; MCHC 33.3 % (32.0-36.0); MCV 93.1 fL (80-95); MPV 10.5 fL (8.0-11.0); Monocytes % 8.7; Neutrophils % 56.9; Nucleated RBC 0 %; Platelet Count 339 10^3/uL (130-400); RBC 4.19 10^6/uL (3.93-5.22); RDW 12.1 % (11.7-14.6); RDW-SD 41.4 fL; WBC 7.79 10^3/uL (4.4-10.8)
[2021-02-26 20:39] LABS: ALT 17 U/L (14-59); AST 12 U/L (15-37); Albumin 3.8 g/dL (3.4-5.0); Alkaline Phosphatase 50 U/L (46-116); BUN 7 mg/dL (7-18); Bilirubin, Total 0.3 mg/dL (0.2-1.0); CREATININE 0.6 mg/dL (0.55-1.02); Calcium 8.7 mg/dL (8.5-10.1); Chloride 106 mmol/L (98-107); Glucose 87 mg/dL (74-106); Potassium 4.1 mmol/L (3.5-5.1); Sodium 142 mmol/L (136-145); TSH (W/Ref FT4) 1.39 uIU/mL (0.36-3.74); Total Protein 7.4 g/dL (6.4-8.2)
== END 2021-02-26 17:49 | disposition home or self-care (01) ==
LOC: NCHCN 17:48
PROVIDERS: Visit Provider Nurse Practitioner Family
DX: F41.8 Other specified anxiety disorders (principal); R41.82 Altered mental status, unspecified; R45.4 Irritability and anger; F22 Delusional disorders; R60.0 Localized edema
CPT/HCPCS: 80053; 84443; 85025

== ENCOUNTER 2021-04-20 14:29 | Outpatient (REF) | payer MEDICAID, SELFPAY ==
[2021-04-21 13:48] LABS: Chlamydia Result Negative (Negative); GC Result Negative (Negative)
== END 2021-04-20 14:30 | disposition home or self-care (01) ==
LOC: LBN 14:29
PROVIDERS: Visit Provider Nurse Practitioner Family
DX: Z11.3 Encounter for screening for infections with a predominantly sexual mode of transmission (principal)
CPT/HCPCS: 87491; 87591

== ENCOUNTER 2021-06-09 19:53 | Emergency (ER) | payer MEDICAID, SELFPAY ==
[2021-06-09 19:56] VITALS: BP 122/73; PULSE 111; RESP 18; TEMP 37.2; O2SAT 100
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
[2021-06-09] MEDS: Acyclovir 400 MG TAB PO (20:27)
== END 2021-06-09 20:25 | disposition home or self-care (01) ==
PROVIDERS: Emergency Provider Student in an Organized Health Care Education/Training Program
DX: B00.1 Herpesviral vesicular dermatitis (principal)
CPT/HCPCS: 99283

== ENCOUNTER 2021-06-10 10:28 | Outpatient (REF) | payer MEDICAID, SELFPAY ==
[2021-06-11 15:34] LABS: Chlamydia Result Negative (Negative); GC Result Negative (Negative)
== END 2021-06-10 10:29 | disposition home or self-care (01) ==
LOC: LBN 10:28
PROVIDERS: Obstetrics & Gynecology Gynecology
DX: Z11.3 Encounter for screening for infections with a predominantly sexual mode of transmission (principal)
CPT/HCPCS: 87491; 87591

== ENCOUNTER 2021-10-06 07:48 | Emergency (ER) | payer MEDICAID, SELFPAY ==
[2021-10-06 07:53] VITALS: BP 107/63; PULSE 75; RESP 16; TEMP 36.2; O2SAT 100
[2021-10-06 08:07] LABS: Bilirubin Negative (Negative); Blood Trace-intact (Negative); Clarity Cloudy (Clear); Glucose Negative (Negative); Ketones Negative (Negative); Leukocyte Esterase Trace (Negative); Nitrite Positive (Negative); Specific Gravity 1.025 (1.005-1.025); pH 7.5 (5-8)
--- NOTE | 2021-10-06 08:15 | DI.US_ITS ---
Exam(s) US OB 1ST TRIMESTER EXAM: US OB 1ST TRIMESTER CLINICAL HISTORY: left lower pelvic pain with radiation to LUQ and f. COMPARISON: US US PELVIS TRANSVAGINAL from 09/07/2019 TECHNIQUE: Transabdominal Transvaginal first trimester obstetrical ultrasound performed. FINDINGS: Sonographic images demonstrate a single intrauterine gestation. A yolk sac and pole are seen. Sonographically assessed gestational age based upon crown-rump length of 0.3 cm is: 5 weeks 6 days Estimated date of delivery based on this ultrasound is: 06/02/2022 heart rate motion is Dopplered at: Not identified at this time. No free fluid identified. Both ovaries appear sonographically normal. There is a 1.8 x 1.6 x 1.7 cm corpus luteal cyst on the l eft ovary. Pelvic Measurments Uterus: 8.7 x 3.2 x 5.2 cm Rt Ovary: 2.5 x 2.2 x 2.1 cm Lt Ovary: 1.8 x 1.7 x 1.4 cm IMPRESSION: 1. There is a single intrauterine gestation. Estimated gestational age based on crown-rump length is 5 weeks 6 days. heart tone was not identified at this time. This is likely due to the age an d size of the fetus. A follow-up examination in 1-2 weeks is recommended to document viability. 2. No evidence of an ectopic . 3. Results were communicated with the emergency department. DATA REPOSITORY:
--- NOTE | 2021-10-06 08:15 | DI.US_ITS ---
Exam(s) US RENAL EXAM: US RENAL CLINICAL HISTORY: left flank pain. TECHNIQUE: Gallego scale, color and spectral Doppler were used. COMPARISON: No exams were available for comparison FINDINGS: Renal size in cm: Right: 11.6. Left: 10.8. Echogenicity: Normal. Hydronephrosis: No. Cyst or mass: No. Nephrolithiasis: No. Other findings: None. Bladder:The bladder was not well distended, but grossly unremarkable. Ureteral jets: Right: Not visualized on this examination. Left: Not visualized on this examination. Prevoid vol:19 cc Postvoid vol:Not obtained on this examination. Renal color flow: Symmetric and within normal limits. IMPRESSION: 1. Unremarkable examination. 2. Results were discussed with the emergency department on the date of the examination. DATA REPOSITORY:
[2021-10-06 08:23] LABS: Bacteria Many HPF (Negative); C & S Indicated? No/Sq. Contamination; Casts 0-2 Hyaline LPF (Negative); Crystals Negative HPF (Negative); Epithelial Cells Many HPF (Negative); Mucus Trace (Negative); RBC 0-2 HPF (0-2)
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
[2021-10-06] MEDS: Normal Saline 1,000 ML 1000 ML IV (08:40)
[2021-10-06 08:47] LABS: Abs Immature Grans 0.02 10^3/uL (0.0-0.06); Absolute Basophil Count 0.05 10^3/uL (0.0-0.2); Absolute Lymphocyte Count 1.79 10^3/uL (1.2-3.4); Absolute Monocyte Count 0.74 10^3/uL (0.1-0.8); Absolute Neutrophil Count 4.95 10^3/uL (1.2-6.7); Basophils % 0.6; HCT 39.5 % (36.0-46.0); HGB 13.5 g/dL (11.2-15.7); Immature Grans % 0.3; Lymphocytes % 22.5; MCH 30.8 pg (27.0-33.0); MCHC 34.2 % (32.0-36.0); Monocytes % 9.3; Neutrophils % 62.3; Nucleated RBC 0 %; Platelet Count 292 10^3/uL (130-400); RBC 4.39 10^6/uL (3.93-5.22); RDW-SD 39.4 fL; WBC 7.95 10^3/uL (4.4-10.8)
[2021-10-06] MEDS: Ondansetron 4 MG/2 ML VIAL IVP (08:47)
[2021-10-06 09:10] LABS: ALT 18 U/L (14-59); AST 11 U/L (15-37); Albumin 4.1 g/dL (3.4-5.0); Alkaline Phosphatase 54 U/L (46-116); BUN 7 mg/dL (7-18); Bilirubin, Total 0.7 mg/dL (0.2-1.0); CREATININE 0.6 mg/dL (0.55-1.02); Calcium 8.6 mg/dL (8.5-10.1); Chloride 103 mmol/L (98-107); Glucose 87 mg/dL (74-106); Potassium 3.5 mmol/L (3.5-5.1); Sodium 139 mmol/L (136-145); Total Protein 7.9 g/dL (6.4-8.2)
[2021-10-06 09:23] VITALS: BP 106/54; PULSE 77; RESP 16; TEMP 36.3; O2SAT 100
[2021-10-06 09:45] LABS: Lipase 49 U/L (73-393)
[2021-10-06 10:46] LABS: HCG Quant, Pregnancy 39074 mIU/mL (1-3)
[2021-10-06 11:17] LABS: Bacteria Many HPF (Negative); C & S Indicated? No/Sq. Contamination; Casts Negative LPF (Negative); Crystals Negative HPF (Negative); Epithelial Cells Many HPF (Negative); Mucus Negative (Negative); RBC 0-2 HPF (0-2); WBC 0-2 HPF (0-5)
[2021-10-06 13:39] VITALS: BP 100/62; PULSE 84; RESP 16; TEMP 36.3; O2SAT 100
== END 2021-10-06 11:00 | disposition home or self-care (01) ==
PROVIDERS: Emergency Provider Physician Assistant
DX: O26.891 Other specified pregnancy related conditions, first trimester (principal); R10.32 Left lower quadrant pain; R10.10 Upper abdominal pain, unspecified; Z3A.00 Weeks of gestation of pregnancy not specified
CPT/HCPCS: 36415; 76770; 80053; 81025; 83690; 86900; 86901; 96361; 96374; 99284; 76801; 81003; 81015; 84702; 85025; J2405

== ENCOUNTER 2021-10-24 20:28 | Emergency (ER) | payer MEDICAID, SELFPAY ==
[2021-10-24 20:37] VITALS: BP 104/69; PULSE 83; RESP 18; TEMP 36.3; O2SAT 98
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
--- NOTE | 2021-10-24 22:04 | PDOC.MHCN_ITS ---
Date of service: 10/24/21 Time of Service: 22:04 Mental Health Crisis Note Presenting Issue How did you arrive at the ED and why did you come: Client arrived at [facility] after contacting the suicide hotline. Precipitating Factors Client denies SI/HI, intent and plan. Disposition BEHAVIOR: Client is sitting up in hospital bed dressed in proper paper hospital attire when this underwriter mortgage loan arrives via zoom. Client is tearful at the beginning of the assessment although she is cooperative answering all of the questions that are being asked of her. EYE CONTACT: Fair MOOD: depressed/tearful AFFECT: congruent with mood APPETITE: Client reports that her appetite has been fair, although she has been experiencing morning sickness due to being 8 weeks . SLEEP(trouble falling/staying asleep: Client reports that she gets at least 7 hours of sleep per day. Plan Client to return home on pro-active safety plan which includes: following up with med- provider on 11/03/21 @ 1p, referral for therapy at [facility], and referral for case management. Client also given [facility] / phone number as well lifeline and [place] text line. Signature Clinician's Name/Title: Glendy Bell, [facility] Emergency Clinician.
== END 2021-10-24 22:06 | disposition home or self-care (01) ==
PROVIDERS: Emergency Provider Student in an Organized Health Care Education/Training Program; PCP Nurse Practitioner Family
DX: O26.891 Other specified pregnancy related conditions, first trimester (principal); Z63.8 Other specified problems related to primary support group; F32.9 Major depressive disorder, single episode, unspecified; Z3A.08 8 weeks gestation of pregnancy
CPT/HCPCS: 80053; 99284; 80320; 80329; 82140; 84443; 85025; 99283

== ENCOUNTER 2021-10-31 15:58 | Emergency (ER) | payer MEDICAID, SELFPAY ==
[2021-10-31 16:01] VITALS: BP 112/63; PULSE 88; RESP 14; TEMP 36.7; O2SAT 100
[2021-10-31] MEDS: Ondansetron O.D.T. 4 MG TABEF (16:33)
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
[2021-10-31 17:43] LABS: Abs Immature Grans 0.04 10^3/uL (0.0-0.06); Absolute Basophil Count 0.06 10^3/uL (0.0-0.2); Absolute Eosinophil Count 0.26 10^3/uL (0.0-0.7); Absolute Lymphocyte Count 1.82 10^3/uL (1.2-3.4); Absolute Monocyte Count 0.78 10^3/uL (0.1-0.8); Absolute Neutrophil Count 7.28 10^3/uL (1.2-6.7); Basophils % 0.6; Eosinophils % 2.5; HCT 40.8 % (36.0-46.0); HGB 14.1 g/dL (11.2-15.7); Immature Grans % 0.4; Lymphocytes % 17.8; MCHC 34.6 % (32.0-36.0); MCV 89.7 fL (80-95); MPV 9.7 fL (8.0-11.0); Monocytes % 7.6; Neutrophils % 71.1; Platelet Count 315 10^3/uL (130-400); RBC 4.55 10^6/uL (3.93-5.22); RDW 11.9 % (11.7-14.6); RDW-SD 38.6 fL; WBC 10.24 10^3/uL (4.4-10.8)
[2021-10-31] MEDS: Normal Saline 1,000 ML 1000 ML IV (17:48)
[2021-10-31 17:52] LABS: Bilirubin Negative (Negative); Blood Trace-intact (Negative); Clarity Cloudy (Clear); Glucose Negative (Negative); Ketones Negative (Negative); Leukocyte Esterase Trace (Negative); Nitrite Positive (Negative)
[2021-10-31 17:57] LABS: Epithelial Cells Few HPF (Negative)
[2021-10-31 17:58] LABS: Bacteria Many HPF (Negative); C & S Indicated? Yes; Casts Negative LPF (Negative); Crystals Negative HPF (Negative); Mucus Negative (Negative)
[2021-10-31 18:11] LABS: Lipase 61 U/L (73-393)
[2021-10-31 18:17] LABS: ALT 21 U/L (14-59); AST 15 U/L (15-37); Albumin 4.2 g/dL (3.4-5.0); Alkaline Phosphatase 47 U/L (46-116); Anion Gap 7.8 mmol/L (3-11); BUN 5 mg/dL (7-18); Bilirubin, Total 0.9 mg/dL (0.2-1.0); CO2 26.2 mmol/L (21.0-32.0); CREATININE 0.5 mg/dL (0.55-1.02); Calcium 9.4 mg/dL (8.5-10.1); Chloride 102 mmol/L (98-107); Glucose 77 mg/dL (74-106); Potassium 3.7 mmol/L (3.5-5.1); Sodium 136 mmol/L (136-145); Total Protein 8.3 g/dL (6.4-8.2)
[2021-10-31] MEDS: Cephalexin 500 MG CAP PO (19:06)
[2021-10-31 19:38] VITALS: BP 100/56; PULSE 82; RESP 18; O2SAT 100
--- NOTE | 2021-10-31 22:09 | NUR.NOTE ---
[employer] [employer] req faxed to DI for Pelvic/Trans Vag study, instruction prep sheet given to patient. Vaginal bleeding w/.Nursing Note:
== END 2021-10-31 19:39 | disposition home or self-care (01) ==
PROVIDERS: Emergency Provider Physician Assistant; PCP Nurse Practitioner Family
DX: O23.41 Unspecified infection of urinary tract in pregnancy, first trimester (principal); Z3A.09 9 weeks gestation of pregnancy; R10.9 Unspecified abdominal pain
CPT/HCPCS: 80053; 83690; 87077; 96360; 99284; 81003; 81015; 84702; 85025; 87086; 87186; 99283

== ENCOUNTER 2021-11-02 13:32 | Outpatient (CLI) | payer MEDICAID, SELFPAY ==
--- NOTE | 2021-11-02 | DI.US_ITS ---
Exam(s) US OB 1ST TRIMESTER EXAM: US OB 1ST TRIMESTER CLINICAL HISTORY: 9 WKS 5 DAYS , PAIN, BLEEDING, F/U IN ER.. COMPARISON: US US OB 1ST TRIMESTER from 10/06/2021 TECHNIQUE: Transabdominal Transvaginal first trimester obstetrical ultrasound performed. FINDINGS: Sonographic images demonstrate a single intrauterine gestation. A yolk sac and pole are seen. movement was identified. Sonographically assessed gestational age based upon crown-rump length of 2.8 cm is: 9 weeks 4 days Estimated date of delivery based on this ultrasound is: 06/03/2022 heart rate motion is Dopplered at: 160 bpm. No free fluid identified. Both ovaries appear sonographically normal. There is a corpus luteal cyst seen on the left ovary rey uring 1.9 x 2.1 x 1.5 cm. Pelvic Measurments Uterus: 9.5 x 6.6 x 7.7 cm Rt Ovary: 2.6 x 2 x 1.7 cm Lt Ovary: 2.6 x 2.4 x 2.5 cm IMPRESSION: 1. Single live intrauterine gestation as above. DATA REPOSITORY:
== END 2021-11-02 13:52 ==
PROVIDERS: PCP Nurse Practitioner Family; Visit Provider Physician Assistant
DX: O20.8 Other hemorrhage in early pregnancy (principal); Z3A.09 9 weeks gestation of pregnancy; N83.12 Corpus luteum cyst of left ovary
CPT/HCPCS: 76801

== ENCOUNTER 2021-11-02 14:47 | Emergency (ER) | payer MEDICAID, SELFPAY ==
[2021-11-02 14:57] VITALS: BP 117/61; PULSE 85; RESP 16; TEMP 36.8; O2SAT 100
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
== END 2021-11-02 15:48 | disposition home or self-care (01) ==
PROVIDERS: Emergency Provider Emergency Medicine; PCP Nurse Practitioner Family
DX: O46.91 Antepartum hemorrhage, unspecified, first trimester (principal); Z3A.10 10 weeks gestation of pregnancy

== ENCOUNTER 2021-11-06 15:16 | Outpatient (REF) | payer MEDICAID, SELFPAY ==
[2021-11-10 07:27] LABS: Chlamydia Result Negative (Negative); GC Result Negative (Negative)
== END 2021-11-06 15:17 | disposition home or self-care (01) ==
LOC: LBN 15:16
PROVIDERS: PCP Nurse Practitioner Family; Visit Provider Advanced Practice Midwife
DX: O26.851 Spotting complicating pregnancy, first trimester (principal); Z3A.10 10 weeks gestation of pregnancy
CPT/HCPCS: 87491; 87591; 87480; 87510; 87660

== ENCOUNTER 2021-11-11 01:15 | Outpatient (CLI) | payer MEDICAID, SELFPAY ==
[2021-11-11 11:49] LABS: Kit/Specimen SENT
[2021-11-11 11:58] LABS: Abs Immature Grans 0.02 10^3/uL (0.0-0.06); Absolute Basophil Count 0.06 10^3/uL (0.0-0.2); Absolute Eosinophil Count 0.23 10^3/uL (0.0-0.7); Absolute Lymphocyte Count 2.02 10^3/uL (1.2-3.4); Absolute Monocyte Count 0.85 10^3/uL (0.1-0.8); Absolute Neutrophil Count 6.74 10^3/uL (1.2-6.7); Basophils % 0.6; Eosinophils % 2.3; HCT 36.6 % (36.0-46.0); HGB 12.9 g/dL (11.2-15.7); Immature Grans % 0.2; Lymphocytes % 20.4; MCH 31.9 pg (27.0-33.0); MCHC 35.2 % (32.0-36.0); MCV 90 fL (80-95); Monocytes % 8.6; Neutrophils % 67.9; Platelet Count 279 10^3/uL (130-400); RBC 4.05 10^6/uL (3.93-5.22); RDW 12.6 % (11.7-14.6); RDW-SD 41.2 fL; WBC 9.92 10^3/uL (4.4-10.8)
[2021-11-11 12:58] LABS: TSH (W/Ref FT4) 0.67 uIU/mL (0.36-3.74)
[2021-11-12 09:36] LABS: Varicella IgG Antibody Positive (See Note)
[2021-11-12 09:41] LABS: Rubella IgG Ab (UVM) Positive (See Note)
[2021-11-12 10:52] LABS: Hepatitis B Surface Ag Negative (Negative)
[2021-11-12 11:29] LABS: HIV-1/2 Ag & Ab Screen Negative (Negative)
[2021-11-12 12:01] LABS: Hepatitis C Ab w Rflx HCV PCR Negative (Negative)
[2021-11-12 20:09] LABS: Syphilis IgG w/Reflex Nonreactive (Nonreactive)
[2021-11-19 16:49] LABS: Result Summary NEGATIVE; Specimen WB Whole Blood
== END 2021-11-11 01:16 | disposition home or self-care (01) ==
LOC: LBO 01:16
PROVIDERS: Advanced Practice Midwife; PCP Nurse Practitioner Family; Visit Provider Obstetrics & Gynecology
DX: Z34.91 Encounter for supervision of normal pregnancy, unspecified, first trimester (principal); Z3A.11 11 weeks gestation of pregnancy
CPT/HCPCS: 36415; 80307; 86787; 86803; 86850; 86900; 86901; 87340; 87389; 81220; 84443; 85025; 86762; 86780

== ENCOUNTER 2021-11-11 12:56 | Outpatient (REF) | payer MEDICAID, SELFPAY ==
[2021-11-11 15:39] LABS: *AMPHETAMINES SCREEN URINE Negative (Negative); *BARBITURATES SCREEN URINE Negative (Negative); *BENZODIAZEPINES SCREEN URINE Negative (Negative); Cannabinoids THC Negative (Negative); Cocaine Screen,Urine Negative (Negative); METHADONE URINE SCREEN Negative (Negative); OPIATES URINE SCREEN Negative (Negative)
[2021-11-11 15:56] LABS: Tricyclic Antidepressants Negative (Negative)
[2021-11-14 11:52] LABS: Buprenorphine Negative ng/mL (Cutoff: 5.0); Norbuprenorphine Negative ng/mL (Cutoff: 2.5)
== END 2021-11-11 12:57 | disposition home or self-care (01) ==
LOC: LBN 12:56
PROVIDERS: PCP Nurse Practitioner Family; Visit Provider Advanced Practice Midwife
DX: Z34.91 Encounter for supervision of normal pregnancy, unspecified, first trimester (principal); Z3A.11 11 weeks gestation of pregnancy
CPT/HCPCS: 80307; 87086

== ENCOUNTER → 2021-11-27 01:14 | Outpatient (CLI) | payer MEDICAID, SELFPAY ==
--- NOTE | 2021-11-27 08:00 | DI.US_ITS ---
Exam(s) US PELVIS RENAL EXAM: US PELVIS RENAL CLINICAL HISTORY: left sided pain, LT LOWER QUAD PAIN, R10.32, Z34.90. TECHNIQUE: Ultrasound renal, pelvic, both abdmonal and tranvaginal was performed using standard prot ocol. COMPARISON: US US PELVIS TRANSVAGINAL from 09/07/2019 US US RENAL from 10/06/2021 US US OB 1ST TRIMESTER from 11/02/2021 FINDINGS: RENAL: Renal size in cm: Right: 11.1 left: 11.4 Echogenicity: Normal. Hydronephrosis: No. Cyst or mass: No. Nephrolithiasis: No. Other findings: None. Bladder:Bladder was not adequately filled for evaluation sonographically. Ureteral jets: Right: Not visualized on this examination. Left: Not visualized on this examination. Prevoid vol:23 cc Color: Symmetric and uniform flow to both kidneys. PELVIC: UTERUS: There is an intrauterine gestation. heart rate was measured at 145 beats per minute. Position: Anteverted. Size: 12.4 long by 9.4 AP by 10.3 transverse cm Myometrium: Unremarkable. OVARIES: Right: 2.6 x 2.4 x 2.3 cm Cyst or mass: No suspicious cystic or solid masses. Left: 2.9 x 1.8 x 2.1 cm Cyst or mass: No suspicious cystic or solid masses. DOPPLER: Color: Symmetric and uniform flow to both ovaries. No hyperemia. Duplex: Normal ovarian arterial waveforms visualized. CUL-DE-SAC: Free fluid: None. IMPRESSION: 1. Normal sonographic appearance of the kidneys. 2. Single living intrauterine gestation. anatomic evaluation was not performed at this time. 3. Unremarkable bilateral ovaries. DATA REPOSITORY:
== END ==
PROVIDERS: PCP Nurse Practitioner Family; Visit Provider Advanced Practice Midwife
DX: R10.32 Left lower quadrant pain (principal); Z3A.13 13 weeks gestation of pregnancy; O26.891 Other specified pregnancy related conditions, first trimester
CPT/HCPCS: 76770; 76856

== ENCOUNTER 2021-12-09 17:51 | Outpatient (CLI) | payer MEDICAID, SELFPAY ==
[2021-12-11 12:06] LABS: AFP 26.3 ng/mL; Cigarette smoking status non-Smoker; GA used in risk estimate Dates estimate; IVF Pregnancy No; Initial or repeat testing Initial testing; Insulin dependent diabetes No; Maternal Weight 145 lbs; Number of Fetuses 1; Physician Phone Number 802-748-7300; Prev Pregnancy w/NTD No; RECOMMENDED FOLLOW UP None.; Results Summary Normal risk
== END 2021-12-09 17:52 | disposition home or self-care (01) ==
LOC: LBO 17:53
PROVIDERS: PCP Nurse Practitioner Family; Visit Provider Advanced Practice Midwife
DX: Z34.92 Encounter for supervision of normal pregnancy, unspecified, second trimester (principal); Z3A.15 15 weeks gestation of pregnancy; Z36.89 Encounter for other specified antenatal screening
CPT/HCPCS: 36415; 82105

== ENCOUNTER 2021-12-11 23:34 | Emergency (ER) | payer MEDICAID, SELFPAY ==
[2021-12-11 23:40] VITALS: BP 102/66; PULSE 94; RESP 14; TEMP 36.7; O2SAT 100
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
[2021-12-12 00:30] VITALS: BP 102/66; PULSE 94; RESP 14; TEMP 36.7; O2SAT 100
== END 2021-12-12 00:29 | disposition home or self-care (01) ==
PROVIDERS: Emergency Provider Student in an Organized Health Care Education/Training Program; PCP Nurse Practitioner Family
DX: O20.9 Hemorrhage in early pregnancy, unspecified (principal); Z3A.16 16 weeks gestation of pregnancy; Y04.0XXA Assault by unarmed brawl or fight, initial encounter
CPT/HCPCS: 99284; 99283

== ENCOUNTER 2021-12-14 18:07 | Emergency (ER) | payer MEDICAID, SELFPAY ==
[2021-12-14 18:10] VITALS: BP 126/56; PULSE 77; RESP 14; TEMP 36.8; O2SAT 98
[2021-12-14 18:33] LABS: Bilirubin Negative (Negative); Blood Trace-intact (Negative); Clarity Clear (Clear); Glucose Negative (Negative); Ketones 40 mg/dL (Negative); Leukocyte Esterase Negative (Negative); Nitrite Negative (Negative); Specific Gravity >= 1.030 (1.005-1.025); pH 5.5 (5-8)
[2021-12-14 18:42] LABS: Bacteria Few HPF (Negative); C & S Indicated? No/Sq. Contamination; Crystals Negative HPF (Negative); Epithelial Cells Moderate HPF (Negative); Mucus Heavy (Negative); RBC 0-2 HPF (0-2); WBC 0-2 HPF (0-5)
[2021-12-14 18:43] LABS: Abs Immature Grans 0.03 10^3/uL (0.0-0.06); Absolute Basophil Count 0.04 10^3/uL (0.0-0.2); Absolute Eosinophil Count 0.18 10^3/uL (0.0-0.7); Absolute Lymphocyte Count 1.97 10^3/uL (1.2-3.4); Absolute Neutrophil Count 6.15 10^3/uL (1.2-6.7); Basophils % 0.4; HCT 31.5 % (36.0-46.0); HGB 11.1 g/dL (11.2-15.7); Immature Grans % 0.3; Lymphocytes % 21.7; MCH 31.4 pg (27.0-33.0); MCHC 35.2 % (32.0-36.0); MCV 89 fL (80-95); Monocytes % 7.7; Neutrophils % 67.9; Platelet Count 232 10^3/uL (130-400); RBC 3.53 10^6/uL (3.93-5.22); RDW 12.5 % (11.7-14.6); RDW-SD 40.4 fL; WBC 9.07 10^3/uL (4.4-10.8)
[2021-12-14 19:17] LABS: ALT 17 U/L (14-59); AST 13 U/L (15-37); Albumin 3.4 g/dL (3.4-5.0); Alkaline Phosphatase 38 U/L (46-116); Anion Gap 13.8 mmol/L (3-11); BUN 6 mg/dL (7-18); Bilirubin, Total 0.5 mg/dL (0.2-1.0); CO2 21.2 mmol/L (21.0-32.0); CREATININE 0.5 mg/dL (0.55-1.02); Calcium 8.3 mg/dL (8.5-10.1); Chloride 104 mmol/L (98-107); Glucose 99 mg/dL (74-106); Potassium 3.2 mmol/L (3.5-5.1); Sodium 139 mmol/L (136-145); Total Protein 6.5 g/dL (6.4-8.2)
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
== END 2021-12-14 19:43 | disposition home or self-care (01) ==
PROVIDERS: Emergency Provider Emergency Medicine; PCP Nurse Practitioner Family
DX: O9A.312 Physical abuse complicating pregnancy, second trimester (principal); O26.852 Spotting complicating pregnancy, second trimester; Z3A.16 16 weeks gestation of pregnancy; Y07.03 Male partner, perpetrator of maltreatment and neglect
CPT/HCPCS: 80053; 99281; 81003; 81015; 85025

== ENCOUNTER 2021-12-15 12:27 | Emergency (ER) | payer MEDICAID, SELFPAY ==
[2021-12-15 12:29] VITALS: BP 111/57; PULSE 89; RESP 16; TEMP 36.8; O2SAT 98
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
== END 2021-12-15 13:03 | disposition home or self-care (01) ==
PROVIDERS: Emergency Provider Registered Nurse Emergency; PCP Nurse Practitioner Family
DX: O20.9 Hemorrhage in early pregnancy, unspecified (principal)

== ENCOUNTER → 2021-12-15 18:48 | Outpatient (CLI) | payer MEDICAID, SELFPAY ==
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
== END ==
PROVIDERS: PCP Nurse Practitioner Family; Visit Provider Emergency Medicine
DX: O20.8 Other hemorrhage in early pregnancy (principal); Z3A.16 16 weeks gestation of pregnancy
CPT/HCPCS: 76816

== ENCOUNTER 2022-01-01 18:37 | Emergency (ER) | payer MEDICAID, SELFPAY ==
[2022-01-01 18:40] VITALS: BP 101/68; PULSE 88; RESP 17; TEMP 36.8; O2SAT 98
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
[2022-01-01 20:22] LABS: Bilirubin Negative (Negative); Blood Negative (Negative); Clarity Clear (Clear); Glucose Negative (Negative); Ketones Negative (Negative); Leukocyte Esterase Negative (Negative); Nitrite Negative (Negative); Specific Gravity 1.025 (1.005-1.025); Urobilinogen 0.2 EU/dL (Up TO 0.2); pH 6.5 (5-8)
== END 2022-01-01 19:43 | disposition short-term general hospital (02) ==
LOC: ER 18:40
PROVIDERS: Emergency Provider Physician Assistant
DX: O99.352 Diseases of the nervous system complicating pregnancy, second trimester (principal); G89.11 Acute pain due to trauma; O26.892 Other specified pregnancy related conditions, second trimester; R10.9 Unspecified abdominal pain; O26.852 Spotting complicating pregnancy, second trimester; O09.292 Supervision of pregnancy with other poor reproductive or obstetric history, second trimester; Z3A.18 18 weeks gestation of pregnancy; Y04.2XXA Assault by strike against or bumped into by another person, initial encounter
CPT/HCPCS: 99285; 81003; 99284

== ENCOUNTER 2022-01-01 20:09 | Outpatient (CLI) | payer MEDICAID, SELFPAY ==
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
[2022-01-01] MEDS: Amoxicillin 500 MG CAP PO (21:03)
== END 2022-01-01 21:05 | disposition home or self-care (01) ==
LOC: BCD 20:10 → OBS 20:57
PROVIDERS: Visit Provider Obstetrics & Gynecology Gynecology
DX: O99.612 Diseases of the digestive system complicating pregnancy, second trimester (principal); R10.9 Unspecified abdominal pain

== ENCOUNTER → 2022-01-06 01:11 | Outpatient (CLI) | payer MEDICAID, SELFPAY ==
--- NOTE | 2022-01-06 08:00 | DI.US_ITS ---
Exam(s) US OB 2-3 TRIMESTER EXAM: US OB 2-3 TRIMESTER CLINICAL HISTORY: anatomy survey, Z34.90 TECHNIQUE: Ultrasound performed using standard protocol. COMPARISON: US US OB GEOVANNI WEIGHT from 12/15/2021 FINDINGS: Ob ultrasound was performed utilizing 2nd trimester protocol. biometry is consistent with gest ational age of 19 weeks 5 days and EDC of May 28. Placenta is fundal and anterior with no evidence of placenta previa. There is a normal quantity of a mniotic fluid. anomaly screen is within normal limits as per the attached checklist. heart rate was 140 BPM IMPRESSION: DATA REPOSITORY:
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
== END ==
PROVIDERS: Visit Provider Advanced Practice Midwife
DX: Z34.92 Encounter for supervision of normal pregnancy, unspecified, second trimester (principal); Z3A.19 19 weeks gestation of pregnancy
CPT/HCPCS: 76805

== ENCOUNTER 2022-02-01 11:14 | Outpatient (REF) | payer MEDICAID, SELFPAY ==
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
== END 2022-02-01 11:15 | disposition home or self-care (01) ==
LOC: LBN 11:14
PROVIDERS: Visit Provider Advanced Practice Midwife
DX: O23.42 Unspecified infection of urinary tract in pregnancy, second trimester (principal); Z3A.23 23 weeks gestation of pregnancy
CPT/HCPCS: 87077; 87086; 87186

== ENCOUNTER 2022-02-21 21:16 | Emergency (ER) | payer MEDICAID, SELFPAY ==
[2022-02-21 21:21] VITALS: BP 117/64; PULSE 84; RESP 16; TEMP 36.7; O2SAT 100
[2022-02-21 21:47] LABS: Bilirubin Negative (Negative); Blood Negative (Negative); Clarity Clear (Clear); Glucose Negative (Negative); Ketones Negative (Negative); Leukocyte Esterase Negative (Negative); Nitrite Negative (Negative); Specific Gravity 1.015 (1.005-1.025); Urobilinogen 0.2 EU/dL (Up TO 0.2)
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
[2022-02-21 21:54] LABS: Abs Immature Grans 0.11 10^3/uL (0.0-0.06); Absolute Basophil Count 0.05 10^3/uL (0.0-0.2); Absolute Eosinophil Count 0.52 10^3/uL (0.0-0.7); Absolute Monocyte Count 1.22 10^3/uL (0.1-0.8); Absolute Neutrophil Count 8.73 10^3/uL (1.2-6.7); Basophils % 0.4; HGB 11.6 g/dL (11.2-15.7); Immature Grans % 0.9; Lymphocytes % 17.8; MCHC 35.2 % (32.0-36.0); MCV 91 fL (80-95); MPV 9.6 fL (8.0-11.0); Monocytes % 9.4; Neutrophils % 67.5; Platelet Count 236 10^3/uL (130-400); RBC 3.63 10^6/uL (3.93-5.22); RDW 12.4 % (11.7-14.6); RDW-SD 40.8 fL; WBC 12.94 10^3/uL (4.4-10.8)
[2022-02-21] MEDS: ACETAMINOPHEN 1,000 MG/100 ML BTL 400 MG IVPB (21:59)
[2022-02-21 22:06] LABS: ALT 24 U/L (14-59); AST 16 U/L (15-37); Alkaline Phosphatase 70 U/L (46-116); Anion Gap 9.7 mmol/L (3-11); BUN 4 mg/dL (7-18); Bilirubin, Total 0.3 mg/dL (0.2-1.0); CO2 25.3 mmol/L (21.0-32.0); CREATININE 0.5 mg/dL (0.55-1.02); Calcium 8.6 mg/dL (8.5-10.1); Chloride 104 mmol/L (98-107); Glucose 98 mg/dL (74-106); Potassium 3.5 mmol/L (3.5-5.1); Sodium 139 mmol/L (136-145); Total Protein 7.3 g/dL (6.4-8.2)
[2022-02-21 22:35] VITALS: BP 104/60; PULSE 88; RESP 16; TEMP 36.7; O2SAT 99
== END 2022-02-21 22:00 | disposition home or self-care (01) ==
PROVIDERS: Emergency Provider Student in an Organized Health Care Education/Training Program; PCP Nurse Practitioner Family
DX: O26.892 Other specified pregnancy related conditions, second trimester (principal); R10.12 Left upper quadrant pain; Z3A.26 26 weeks gestation of pregnancy
CPT/HCPCS: 36415; 80053; 96365; 96366; 99284; 81003; 85025; 99283; J0131

== ENCOUNTER 2022-03-01 03:54 | Outpatient (CLI) | payer MEDICAID, SELFPAY ==
[2022-03-01 10:30] LABS: HCT 34.1 % (36.0-46.0); HGB 11.6 g/dL (11.2-15.7); MCH 31.2 pg (27.0-33.0); MCV 92 fL (80-95); MPV 9.6 fL (8.0-11.0); Platelet Count 219 10^3/uL (130-400); RBC 3.72 10^6/uL (3.93-5.22); RDW 12.7 % (11.7-14.6); RDW-SD 41.5 fL; WBC 10.86 10^3/uL (4.4-10.8)
[2022-03-01 11:11] LABS: Glucose,1 Hr (Glucola) 159 mg/dL (80-140)
== END 2022-03-01 03:55 | disposition home or self-care (01) ==
LOC: LBO 03:54
PROVIDERS: Advanced Practice Midwife; PCP Nurse Practitioner Family; Visit Provider Advanced Practice Midwife
DX: Z34.92 Encounter for supervision of normal pregnancy, unspecified, second trimester (principal)
CPT/HCPCS: 36415; 82950; 85027

== ENCOUNTER 2022-03-04 03:07 | Outpatient (CLI) | payer MEDICAID, SELFPAY ==
[2022-03-04 07:57] LABS: HGB 11.5 g/dL (11.2-15.7); MCH 31.9 pg (27.0-33.0); MCHC 34.8 % (32.0-36.0); MCV 92 fL (80-95); MPV 9.4 fL (8.0-11.0); Platelet Count 222 10^3/uL (130-400); RDW 12.7 % (11.7-14.6); RDW-SD 41.9 fL; WBC 11.54 10^3/uL (4.4-10.8)
== END 2022-03-04 03:08 | disposition home or self-care (01) ==
LOC: LBO 03:07
PROVIDERS: Advanced Practice Midwife; PCP Nurse Practitioner Family; Visit Provider Advanced Practice Midwife
DX: R73.09 Other abnormal glucose (principal); Z34.92 Encounter for supervision of normal pregnancy, unspecified, second trimester
CPT/HCPCS: 36415; 85027; 82951

== ENCOUNTER → 2022-03-31 01:33 | Outpatient (CLI) | payer MEDICAID, SELFPAY ==
--- NOTE | 2022-03-31 07:45 | DI.US_ITS ---
Exam(s) US OB GEOVANNI WEIGHT EXAM: US OB GEOVANNI WEIGHT CLINICAL HISTORY: first trimester bleeding,o20.9. TECHNIQUE: Transabdominal obstetrical ultrasound was performed. COMPARISON: US US OB 2-3 TRIMESTER from 01/06/2022 FINDINGS: There is a single viable intrauterine gestation with cardiac activity identified-136 bpm The fetus is presently in cephalic position . Amniotic fluid: There is a low normal amount of amniotic fluid with an GEOVANNI of 9.5cm. Placental location: The placenta is anterior grade 2,with no evidence of placenta previa. Dating parameters place this at approximately gestational age, implying NICOLASA of 33 weeks an d 5 days. BPD measures 34 weeks and 4 days HC measures 36 weeks and 0 days AC measures 31 weeks and 6 days FL measures 32 weeks and 1 day Estimated weight is 1995 gm-4 pound 6 ounces Fetus is at the 79th percentile on the Hadlock scale. IMPRESSION:: Viable 3rd trimester gestation, as described above. DATA REPOSITORY:
[2022-03-31 11:53] LABS: *AMPHETAMINES SCREEN URINE Negative (Negative); *BARBITURATES SCREEN URINE Negative (Negative); *BENZODIAZEPINES SCREEN URINE Negative (Negative); Cannabinoids THC Negative (Negative); Cocaine Screen,Urine Negative (Negative); METHADONE URINE SCREEN Negative (Negative); OPIATES URINE SCREEN Negative (Negative)
[2022-03-31 11:54] LABS: Tricyclic Antidepressants Negative (Negative)
[2022-04-09 16:09] LABS: Buprenorphine Negative ng/mL (Cutoff: 5.0); Norbuprenorphine Negative ng/mL (Cutoff: 2.5)
== END ==
PROVIDERS: Advanced Practice Midwife; PCP Nurse Practitioner Family; Visit Provider Advanced Practice Midwife
DX: Z34.93 Encounter for supervision of normal pregnancy, unspecified, third trimester (principal)
CPT/HCPCS: 76816; 80307

== ENCOUNTER 2022-04-08 07:26 | Outpatient (CLI) | payer MEDICAID, SELFPAY ==
--- NOTE | 2022-04-08 | DI.US_ITS ---
Exam(s) US OB BIOPHYSICAL PROFILE EXAM: US OB BIOPHYSICAL PROFILE CLINICAL HISTORY: equivocal NST result TECHNIQUE: Ultrasound biophysical profile performed using standard protocol. COMPARISON: US US OB GEOVANNI WEIGHT from 03/31/2022 FINDINGS: ULTRASOUND BIOPHYSICAL PROFILE: Number of fetuses: One. position: Vertex. heart rate: 133 bpm. Placental grade: 2 Placental location: Anterior. No evidence of previa. Amniotic fluid index: 11.3 cm. Single deepest pocket is 5.0 cm. BIOPHYSICAL PROFILE SCORE: breathin out of 2 movement: 2 out of 2 tone: 2 out of 2 Amniotic fluid: 2 out of 2 Overall biophysical profile score: 8 out of 8. IMPRESSION: Single live intrauterine gestation. Biophysical profile 8 out of 8. DATA REPOSITORY:
[2022-04-08 08:03] VITALS: BP 107/65; PULSE 86
[2022-04-08 08:04] VITALS: BP 107/65; PULSE 86; TEMP 36.6
[2022-04-08 09:52] VITALS: BP 107/65; PULSE 86; TEMP 36.6
--- NOTE | 2022-04-08 10:04 | W.OBNST ---
Date of service: 04/08/22 Time of Service: 10:04 NST Evaluation Reason for NST Reasons for Nonstress Test: LABOR Gestational Age Gestational Age in Weeks and Days: 32 Weeks and 3Days Test and Monitor Explained Test/Monitor Explained: Test Explained and Monitor Explained Vital Signs Blood Pressure: 107/65 Pulse: 86 Temperature: 97.9 F Urine Results Urine Protein: Negative Urine Ketones: Negative Urine Glucose: Negative Urine Blood: Negative NST Information Date on Monitor: 04/08/22 Time on Monitor: 07:37 Date off Monitor: 04/08/22 Time off Monitor: 09:30 Total Time on Monitor: 113 NST Interventions: PO Hydration NST Evaluation Patient States Movement: Present FHR Baseline: 130 Variability: Moderate 6-25 bpm Accelerations: 10x10 Decelerations: None NST Results: Reactive Note Biophysical Profile Results of Biophysical Profile: 02/15 in the DI, GEOVANNI of 11 NST Note Note: VPS sent Cvx closed/thick, PPOOP, intact membranes NST Reviewed and Verified by: Ericka Fam
[2022-04-08 10:05] VITALS: BP 107/65; PULSE 86; TEMP 36.6
== END 2022-04-08 10:10 | disposition home or self-care (01) ==
LOC: BCD 07:26 → OBS 07:34
PROVIDERS: PCP Nurse Practitioner Family; Visit Provider Advanced Practice Midwife
DX: O60.03 Preterm labor without delivery, third trimester (principal); O36.8330 Maternal care for abnormalities of the fetal heart rate or rhythm, third trimester, not applicable or unspecified; Z3A.32 32 weeks gestation of pregnancy
CPT/HCPCS: 59025; 76815; 76819; 87480; 87510; 87660

== ENCOUNTER 2022-04-10 17:59 | Outpatient (CLI) | payer MEDICAID, SELFPAY ==
[2022-04-10 18:30] VITALS: BP 117/71; PULSE 104; TEMP 36.7
[2022-04-10 18:35] VITALS: BP 117/71; PULSE 104
[2022-04-10 18:49] VITALS: BP 117/71; PULSE 104; TEMP 36.7
[2022-04-10] MEDS: Lactated Ringers 500 ML IV (18:50)
[2022-04-10] MEDS: Ondansetron 4 MG/2 ML VIAL 8 MG IVP (19:07)
--- NOTE | 2022-04-10 19:14 | W.OBNST ---
Date of service: 04/10/22 Time of Service: 19:14 NST Evaluation Reason for NST Reasons for Nonstress Test: OTHER, SEE COMMENT Reason for NST Other: nausea, vomiting, headache, sore throat Gestational Age Gestational Age in Weeks and Days: 32 Weeks and 5Days Test and Monitor Explained Test/Monitor Explained: Test Explained, Monitor Explained and Patient Verbalized Understanding Vital Signs Blood Pressure: 117/71 Pulse: 104 Temperature: 98.0 F Urine Results Urine Protein: Negative Urine Ketones: Negative Urine Glucose: Negative Urine Blood: Negative NST Information Time on Monitor: 18:27 Date off Monitor: 04/10/22 Time off Monitor: 19:14 NST Interventions: None Contraction Frequency: rare NST Evaluation Patient States Movement: Present FHR Baseline: 130 Variability: Moderate 6-25 bpm Accelerations: 15x15 Decelerations: None NST Results: Reactive Note NST Note Note: Urine dip positive for nitrites. Neg for ketones, sp gr 1.015, afebrile Pt reports CAMPBELL, vomiting, mild left flank pain, urinary frequency Hx E-coli UTI in January 2022; Sensitivity report reviewed Exam reveals mild CVAT on the left side, benign abdominal exam Will send CBC w/diff and UA with C&S. IV fluid LR, Zofran 8 mg IVP, Reglan 10 mg IVP, Rocephan 1 gm IVPB, Consider tylenol IV for CAMPBELL or oral Fioricet Will discharge to home when is able to tolerate PO intake on oral ATB NST Reviewed and Verified by: Ericka Fam
[2022-04-10 19:20] VITALS: BP 117/71; PULSE 104; TEMP 36.7
[2022-04-10 19:23] LABS: Abs Immature Grans 0.11 10^3/uL (0.0-0.06); Absolute Eosinophil Count 0.37 10^3/uL (0.0-0.7); Absolute Monocyte Count 1.51 10^3/uL (0.1-0.8); Absolute Neutrophil Count 10.49 10^3/uL (1.2-6.7); Basophils % 0.3; Eosinophils % 2.6; HGB 11.1 g/dL (11.2-15.7); Immature Grans % 0.8; MCH 31.6 pg (27.0-33.0); MCHC 34.7 % (32.0-36.0); MCV 91 fL (80-95); MPV 9.8 fL (8.0-11.0); Monocytes % 10.5; Neutrophils % 72.8; Platelet Count 238 10^3/uL (130-400); RBC 3.51 10^6/uL (3.93-5.22); RDW 12.8 % (11.7-14.6); RDW-SD 42.4 fL; WBC 14.41 10^3/uL (4.4-10.8)
[2022-04-10 19:26] LABS: Absolute Basophil Count 0.04 10^3/uL (0.0-0.2); Absolute Lymphocyte Count 1.87 10^3/uL (1.2-3.4)
[2022-04-10 19:27] LABS: Diff Comment Agrees w/ Instrument
[2022-04-10] MEDS: cefTRIAXone 1 GM/50 ML BAG IVPB (19:33)
[2022-04-10] MEDS: Calcium Carbonate *TUMS* 500 MG CHEW PO (19:50)
[2022-04-10] MEDS: Metoclopramide 10 MG/2 ML VIAL IVP (19:55)
[2022-04-10 20:06] LABS: Bilirubin Negative (Negative); Blood Negative (Negative); Clarity Cloudy (Clear); Glucose Negative (Negative); Ketones Negative (Negative); Leukocyte Esterase Negative (Negative); Nitrite Positive (Negative); Urobilinogen 0.2 EU/dL (Up TO 0.2)
[2022-04-10 20:20] LABS: Bacteria Many HPF (Negative); C & S Indicated? No/Sq. Contamination; Casts Negative LPF (Negative); Crystals Negative HPF (Negative); Epithelial Cells Many HPF (Negative); Mucus Negative (Negative); RBC Negative HPF (0-2)
[2022-04-10] MEDS: Butalbital/Acetaminophen/Caffeine 50/325/40 TAB PO (21:37)
[2022-04-10] MEDS: Acetaminophen 500 MG TAB PO (21:38)
== END 2022-04-10 22:05 | disposition home or self-care (01) ==
LOC: BCD 18:00 → OBS 18:06
PROVIDERS: PCP Nurse Practitioner Family; Visit Provider Advanced Practice Midwife
DX: Z3A.32 32 weeks gestation of pregnancy (principal); R50.9 Fever, unspecified; R11.2 Nausea with vomiting, unspecified; J02.9 Acute pharyngitis, unspecified; R82.998 Other abnormal findings in urine; R10.32 Left lower quadrant pain; O23.43 Unspecified infection of urinary tract in pregnancy, third trimester; O21.8 Other vomiting complicating pregnancy; O26.893 Other specified pregnancy related conditions, third trimester
CPT/HCPCS: 59025; 87077; 81003; 81015; 85025; 87086; 87186; J0696; J2405; J2765

== ENCOUNTER 2022-04-20 10:50 | Outpatient (CLI) | payer MEDICAID, SELFPAY ==
[2022-04-20 11:25] VITALS: BP 113/67; PULSE 86
[2022-04-20 11:37] VITALS: BP 113/67; PULSE 86; TEMP 36.9
--- NOTE | 2022-04-20 12:14 | W.OBNST ---
Date of service: 04/20/22 Time of Service: 12:14 NST Evaluation Reason for NST Reasons for Nonstress Test: FALSE LABOR Gestational Age Gestational Age in Weeks and Days: 34 Weeks and 1Days Test and Monitor Explained Test/Monitor Explained: Test Explained, Monitor Explained and Patient Verbalized Understanding Vital Signs Blood Pressure: 113/67 Pulse: 86 Temperature: 98.4 F Urine Results Urine Protein: Negative Urine Ketones: Negative Urine Glucose: Negative Urine Blood: Negative NST Information Date on Monitor: 04/20/22 Time on Monitor: 11:20 Date off Monitor: 04/20/22 Time off Monitor: 11:49 Total Time on Monitor: 29 Contraction Frequency: 0 NST Evaluation Patient States Movement: Present FHR Baseline: 130 Variability: Moderate 6-25 bpm Accelerations: 15x15 Decelerations: None NST Results: Reactive Note NST Note Note: Kathie presents for concern related to vaginal discharge that she reports may have been urine leaking and cramping. NST is reactive with very active baby palpated. [place] fin[place] contractions occur with movement but are not noted on toco. ROM plus pending. will discharge to home if ROM plus is negative. Kathie will keep her next visit as scheduled. Urine culture for recent treatment with Rocephin sent today as well. ISABELLA NST Reviewed and Verified by: Suzanne Gonzalez
[2022-04-20 12:17] VITALS: BP 113/67; PULSE 86; TEMP 36.9
[2022-04-20 12:25] LABS: ROM Plus Negative
== END 2022-04-20 12:31 | disposition home or self-care (01) ==
LOC: BCD 10:53 → OBS 11:01
PROVIDERS: PCP Nurse Practitioner Family; Visit Provider Advanced Practice Midwife
DX: O47.03 False labor before 37 completed weeks of gestation, third trimester; N89.8 Other specified noninflammatory disorders of vagina; R82.998 Other abnormal findings in urine; Z3A.34 34 weeks gestation of pregnancy
CPT/HCPCS: 59025; 84112; 87077; 87086; 87186

== ENCOUNTER 2022-04-23 06:01 | Observation (INO) | payer MEDICAID, SELFPAY ==
[2022-04-23] VITALS (10 sets, daily range): BP systolic 101–110; BP diastolic 56–69; PULSE 72–96; RESP 16; TEMP 36.5–36.8; O2SAT 98
--- NOTE | 2022-04-23 | DI.US_ITS ---
Exam(s) US RENAL EXAM: US RENAL CLINICAL HISTORY: r/o kidney stone. TECHNIQUE: Gallego scale, color and spectral Doppler were used. COMPARISON: US US RENAL from 10/06/2021 FINDINGS: Renal size in cm: Right: 11.3. Left: 12.2. Echogenicity: Normal. Hydronephrosis: Mild fullness of the right renal pelvis. There is moderate left hydronephrosis. Bot h ureteral jets were visualized. Cyst or mass: No. Nephrolithiasis: No. Other findings: None. Bladder:Normal. Ureteral jets: Right: Visualized and unremarkable. Left: Visualized and unremarkable. Prevoid vol:528 cc Postvoid vol:Not performed on this examination. Renal color flow: Symmetric and within normal limits. IMPRESSION: 1. No nephrolithiasis is seen. 2. Moderate left hydronephrosis. DATA REPOSITORY:
[2022-04-23 05:26] LABS: Bilirubin Negative (Negative); Blood Trace-intact (Negative); Clarity Clear (Clear); Glucose Negative (Negative); Ketones Negative (Negative); Leukocyte Esterase Small (Negative); Nitrite Positive (Negative); Specific Gravity 1.025 (1.005-1.025); Urobilinogen 0.2 EU/dL (Up TO 0.2)
[2022-04-23] MEDS: DEXTROSE 5%-LACTATED RINGERS 1,000 ML 999 ML IV (05:27)
[2022-04-23 05:33] LABS: Bacteria Many HPF (Negative); Casts 3-5 Hyaline LPF (Negative); Crystals Negative HPF (Negative); Epithelial Cells Few HPF (Negative); Mucus Moderate (Negative); Other Cells Few Renal (Negative); WBC 20-50 HPF (0-5)
[2022-04-23 05:34] LABS: C & S Indicated? C&S Done As Ordered
[2022-04-23] MEDS: Ondansetron 4 MG/2 ML VIAL 8 MG IVP (05:36)
[2022-04-23] MEDS: Metoclopramide 10 MG/2 ML VIAL IVP (05:36)
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
[2022-04-23] MEDS: Lactated Ringers 500 ML IV (06:15)
--- NOTE | 2022-04-23 07:30 | W.OBNST ---
Date of service: 04/23/22 Time of Service: 07:30 NST Evaluation Reason for NST Reasons for Nonstress Test: OTHER, SEE COMMENT Reason for NST Other: N/V back pain Gestational Age Gestational Age in Weeks and Days: 34 Weeks and 4Days Test and Monitor Explained Test/Monitor Explained: Test Explained, Monitor Explained and Patient Verbalized Understanding Vital Signs Blood Pressure: 110/57 Pulse: 79 Urine Results Urine Protein: Positive Urine Ketones: Positive Urine Glucose: Negative Urine Blood: Positive NST Information Date on Monitor: 04/23/22 Time on Monitor: 04:45 Date off Monitor: 04/23/22 Time off Monitor: 05:51 Total Time on Monitor: 66 NST Interventions: PO Hydration, IV Fluids and Notify Provider NST Evaluation Patient States Movement: Present FHR Baseline: 135 Variability: Moderate 6-25 bpm Accelerations: 15x15 Decelerations: None NST Results: Reactive Note NST Note NST Reviewed and Verified by: Ericka Fam
[2022-04-23] MEDS: Pantoprazole 40 MG TABCR PO (09:50)
[2022-04-23] MEDS: Acetaminophen 500 MG TAB 1000 MG PO (09:50)
[2022-04-23] MEDS: Fosfomycin Tromethamine 3 GM PACKET PO (12:46)
[2022-04-23] MEDS: Calcium Carbonate *TUMS* 500 MG CHEW PO (15:37)
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
[2022-04-27 02:26] VITALS: BP 107/61; PULSE 85
== END 2022-04-23 15:40 | disposition home or self-care (01) ==
LOC: OBS 06:09 → BCD 10:28 → OBS 10:29
PROVIDERS: Admitting Provider Advanced Practice Midwife; PCP Nurse Practitioner Family; Visit Provider Advanced Practice Midwife
DX: O23.43 Unspecified infection of urinary tract in pregnancy, third trimester (principal); N39.0 Urinary tract infection, site not specified; Z3A.34 34 weeks gestation of pregnancy; B96.20 Unspecified Escherichia coli [E. coli] as the cause of diseases classified elsewhere; O99.013 Anemia complicating pregnancy, third trimester; D64.9 Anemia, unspecified; O99.343 Other mental disorders complicating pregnancy, third trimester; F41.8 Other specified anxiety disorders; O26.893 Other specified pregnancy related conditions, third trimester
CPT/HCPCS: 76770; 87077; 59025; 81003; 81015; 87086; 87186; G0378; J0690; J2405; J2765; J3490

== ENCOUNTER 2022-05-05 16:19 | Outpatient (REF) | payer MEDICAID, SELFPAY ==
[2022-05-05 14:24] LABS: *AMPHETAMINES SCREEN URINE Negative (Negative); *BARBITURATES SCREEN URINE Negative (Negative); *BENZODIAZEPINES SCREEN URINE Negative (Negative); Cannabinoids THC Negative (Negative); Cocaine Screen,Urine Negative (Negative); METHADONE URINE SCREEN Negative (Negative); OPIATES URINE SCREEN Negative (Negative)
[2022-05-05 14:27] LABS: Tricyclic Antidepressants Negative (Negative)
[2022-05-11 16:04] LABS: Buprenorphine Negative ng/mL (Cutoff: 5.0); Norbuprenorphine Negative ng/mL (Cutoff: 2.5)
== END 2022-05-05 16:20 | disposition home or self-care (01) ==
LOC: LBN 16:19
PROVIDERS: PCP Nurse Practitioner Family; Visit Provider Advanced Practice Midwife
DX: Z34.93 Encounter for supervision of normal pregnancy, unspecified, third trimester (principal)
CPT/HCPCS: 80307; 80348; 87081

== ENCOUNTER 2022-05-11 23:42 | Outpatient (CLI) | payer MEDICAID, SELFPAY ==
--- NOTE | 2022-05-12 00:14 | W.OBNST ---
Date of service: 05/11/22 Time of Service: 23:50 NST Evaluation Reason for NST Reasons for Nonstress Test: OTHER, SEE COMMENT (right groin pain and belly button pain) Gestational Age Gestational Age in Weeks and Days: 34 Weeks and 4Days Test and Monitor Explained Test/Monitor Explained: Test Explained, Monitor Explained and Patient Verbalized Understanding Vital Signs Blood Pressure: 113/69 Pulse: 90 Temperature: 98 F NST Information Date on Monitor: 05/11/22 Time on Monitor: 23:48 Date off Monitor: 05/12/22 Time off Monitor: 00:24 Total Time on Monitor: 36 NST Interventions: PO Hydration Contraction Frequency: irritability NST Evaluation Patient States Movement: Present FHR Baseline: 120 Variability: Moderate 6-25 bpm Accelerations: 15x15 Decelerations: None NST Results: Reactive Note NST Note Note: NST done due to patient calling with pressure in groin and belly button burning. No contractions noted and patient reports she feels reassurred to RN. NST is reactive and reassuring. Will send clean catch urine as follow up to recent treatment for UTI. Patient has US and visit in office tomorrow. Gestational age is inaccurate on form but nursing is unable to change, actual gestational age is 37w2d with NICOLASA 05/31/22. ISABELLA NST Reviewed and Verified by: Suzanne Gonzalez
[2022-05-12 00:27] VITALS: BP 113/69; PULSE 90; TEMP 36.6
[2022-05-12 00:30] VITALS: BP 113/69; PULSE 90; TEMP 36.7
--- NOTE | 2022-05-12 01:09 | NUR.NOTE ---
Nursing Note: Pt states pain began at 0900 05/11/22 in the lower abdomen and developed into pressure at 2000 this past evening. Feels like a burning pressure and also in the the right groin area-tight. Pt instructed to bring her glucose logs to her appointment later today and she also provided a clean catch urine for culture. Pt has an ultrasound appt as well. Pt states she has not had intercourse for 5 days and has been moving furniture and doing alot. Admits to other nurse that she was moving trash bags up stairs. Pt instructed to have pelvic rest.
== END 2022-05-11 23:43 | disposition home or self-care (01) ==
LOC: BCD 23:43
PROVIDERS: PCP Nurse Practitioner Family; Visit Provider Advanced Practice Midwife
DX: O26.893 Other specified pregnancy related conditions, third trimester (principal); O23.33 Infections of other parts of urinary tract in pregnancy, third trimester; R10.31 Right lower quadrant pain; R10.33 Periumbilical pain; Z3A.34 34 weeks gestation of pregnancy
CPT/HCPCS: 59025; 87086

== ENCOUNTER → 2022-05-12 02:12 | Outpatient (CLI) | payer MEDICAID, SELFPAY ==
--- NOTE | 2022-05-12 07:45 | DI.US_ITS ---
Exam(s) US OB GEOVANNI WEIGHT EXAM: US OB GEOVANNI WEIGHT CLINICAL HISTORY: size less than dates, confirm position,FUNDAL HT LOW FORDATES,[id number]. COMPARISON: US US OB GEOVANNI WEIGHT from 03/31/2022 US US OB BIOPHYSICAL PROFILE from 04/08/2022 US US RENAL from 04/23/2022 TECHNIQUE: Transabdominal obstetrical ultrasound performed. FINDINGS: Sonographic images demonstrate a single intrauterine gestation in cephalic position. heart rate motion is Dopplered at: 126 bpm. Placenta: Anterior. Cervical length Cm. Amniotic fluid index: 6.1 cm. Largest pocket of fluid measures 2.6 cm. . Biometric measurements correspond to 38 weeks 0 days, in the expected range. Estimated weight 3365 grams, 80th percentile. IMPRESSION: GEOVANNI 6.1. size and weight are within the expected range. DATA REPOSITORY:
== END ==
PROVIDERS: PCP Nurse Practitioner Family; Visit Provider Advanced Practice Midwife
DX: O26.843 Uterine size-date discrepancy, third trimester (principal)
CPT/HCPCS: 76816

== ENCOUNTER 2022-05-12 16:56 | Outpatient (REF) | payer MEDICAID, SELFPAY ==
[2022-05-13 14:46] LABS: Chlamydia Result Negative (Negative); GC Result Negative (Negative)
== END 2022-05-12 16:57 | disposition home or self-care (01) ==
LOC: LBN 16:56
PROVIDERS: PCP Nurse Practitioner Family; Visit Provider Advanced Practice Midwife
DX: Z34.93 Encounter for supervision of normal pregnancy, unspecified, third trimester (principal)
CPT/HCPCS: 87491; 87591

== ENCOUNTER 2022-05-17 14:33 | Outpatient (REF) | payer MEDICAID, SELFPAY | END 2022-05-17 14:34 | disposition home or self-care (01) | LOC: LBN 14:33 | PROVIDERS: PCP Nurse Practitioner Family; Visit Provider Advanced Practice Midwife | DX: N89.8 Other specified noninflammatory disorders of vagina (principal) | CPT/HCPCS: 87480; 87510; 87660 ==

== ENCOUNTER 2022-05-18 18:56 | Emergency (ER) | payer MEDICAID, SELFPAY ==
[2022-05-18 19:36] VITALS: BP 111/80; PULSE 80; RESP 20; TEMP 34.6; O2SAT 100
[2022-05-18 19:40] VITALS: RESP 20
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
== END 2022-05-18 22:30 | disposition home or self-care (01) ==
PROVIDERS: Emergency Provider Nurse Practitioner Family; PCP Nurse Practitioner Family
DX: O99.340 Other mental disorders complicating pregnancy, unspecified trimester (principal); F41.9 Anxiety disorder, unspecified; Z3A.00 Weeks of gestation of pregnancy not specified
CPT/HCPCS: 99283; 99282

== ENCOUNTER 2022-05-25 06:35 | Outpatient (CLI) | payer MEDICAID, SELFPAY ==
[2022-05-25 08:50] VITALS: BP 136/79; PULSE 93
[2022-05-25 09:17] VITALS: BP 118/76; PULSE 84; TEMP 36.7
--- NOTE | 2022-05-25 09:49 | PDOC.NST_ITS ---
Date of service: 05/25/22 Time of Service: 09:49 NST Evaluation Reason for NST Reasons for Nonstress Test: OTHER, SEE COMMENT (f/up for previous GEOVANNI of 6 two weeks ago) Gestational Age Gestational Age in Weeks and Days: 39 Weeks and 1Days Test and Monitor Explained Test/Monitor Explained: Test Explained, Monitor Explained and Patient Verbalized Understanding Vital Signs Blood Pressure: 118/76 Pulse: 84 Temperature: 98.1 F NST Information Date on Monitor: 05/25/22 Time on Monitor: 08:48 Date off Monitor: 05/25/22 Time off Monitor: 09:11 Total Time on Monitor: 23 NST Interventions: None Contraction Frequency: 0 NST Evaluation Patient States Movement: Present FHR Baseline: 115 Variability: Moderate 6-25 bpm Accelerations: 15x15 Decelerations: None NST Results: Reactive Note GEOVANNI Results of GEOVANNI: 9.7 NST Note Note: position ROP No labor, intact membranes To [facility] for 39 wk check NST Reviewed and Verified by: Ericka aFm
[2022-05-25 09:51] VITALS: BP 118/76; PULSE 84; TEMP 36.7
== END 2022-05-25 09:40 | disposition home or self-care (01) ==
LOC: BCD 06:36 → OBS 08:42
PROVIDERS: PCP Nurse Practitioner Family; Visit Provider Advanced Practice Midwife
DX: O47.1 False labor at or after 37 completed weeks of gestation (principal); Z3A.39 39 weeks gestation of pregnancy; O26.893 Other specified pregnancy related conditions, third trimester
CPT/HCPCS: 59025; 76819

== ENCOUNTER 2022-05-25 21:32 | Observation (INO) | payer MEDICAID, SELFPAY ==
[2022-05-25 21:22] VITALS: BP 120/72; PULSE 95; RESP 20; TEMP 36.6
[2022-05-25 21:56] VITALS: BP 120/72; PULSE 95; RESP 20; TEMP 36.6
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
--- NOTE | 2022-05-25 22:31 | NUR.NOTE ---
Nursing Note: Pt reporting pain but declining medication. States I just want this baby out now SVE 1.5/90/-2 per CNCrystal Fam. Pt became angry that and removed monitors herself. Pt left AMA.
== END 2022-05-25 21:45 | disposition left against medical advice (07) ==
LOC: OBS 05-27 12:22
PROVIDERS: Admitting Provider Advanced Practice Midwife; PCP Nurse Practitioner Family; Visit Provider Advanced Practice Midwife
DX: O47.1 False labor at or after 37 completed weeks of gestation (principal); O99.343 Other mental disorders complicating pregnancy, third trimester; O26.893 Other specified pregnancy related conditions, third trimester; O99.013 Anemia complicating pregnancy, third trimester; F41.9 Anxiety disorder, unspecified; Z3A.39 39 weeks gestation of pregnancy; R45.1 Restlessness and agitation; D64.9 Anemia, unspecified; N89.8 Other specified noninflammatory disorders of vagina

== ENCOUNTER 2022-08-12 12:31 | Emergency (ER) | payer MEDICAID, SELFPAY ==
[2022-08-12 12:33] VITALS: BP 103/66; PULSE 88; RESP 18; TEMP 36.7; O2SAT 100
[2022-08-12 12:39] VITALS: RESP 18
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
--- OUTSIDE RECORDS SUMMARY | 2022-08-12 13:23 | XMS_ITS | Continuity of Care Document ---
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/26/22 Other mental disorders complicating the puerperium (Final) - Single live (Final) - depression (Final) - 39 weeks gestation of (Final) - Contact with and (suspected) exposure to COVID-19 (Final) - Discharge Disposition: Home or Self Care Attending Physician: All Chadwick Admitting Physician: All Chadwick Referring Physician: All Chadwick Allergies, Adverse Reactions, Alerts No Known Medication Allergies Functional Status 05/25/22 ADLs Independent Verbalizes Home Medications Accurately Family Member Travel History No recent travel Recent Travel History No recent travel Other exposure to Infectious Disease None Medications sertraline 50 mg oral tablet 50 mg = 1 tab, Oral, Daily, # 30 tab, 4 Refill(s), Pharmacy: [id number], 172, cm, 05/26/22 1:28:00 EST, Height/Length Dosing, 74.7, kg, 05/26/22 1:28:00 EST, Weight Dosing Start Date: 05/26/22 Status: Ordered Problem List Condition Confirmation Course Effective Dates Status Health Stat us Informant Confirmed 08/24/21 Active Results Laboratory List Name Date SARS-CoV-2 (COVID-19) PCR (GeneXpert) (COVID 19 (GeneX pert)) 05/26/22 ABO/Rh Echo 05/26/22 ABSC Echo (Antibody Screen Echo) 05/26/22 CBC w/ Diff 05/26/22 Automated Diff 05/26/22 Most recent to oldest [Reference Range]: 1 WBC [4.8-10.8 K/mcL] 15.6 K/mcL *HI* (05/26/22 1:45 AM) RBC [4.20-6.10 Million/mcL] 4.12 Million/mcL *LOW* (05/26/22 1:45 AM) Neutro Auto [42.2-75.2 %] 79.4 % *HI* (05/26/22 1:45 AM) Lymph Auto [20.5-51.1 %] 11.1 % *LOW* (05/26/22 1:45 AM) Barnwell Auto [1.7-9.3 %] 7.9 % (05/26/22 1:45 AM) Basophil Auto [0.0-0.8 %] 0.3 % (05/26/22 1:45 AM) Baso Absolute [0.0-0.2 K/mcL] 0.0 K/mcL (05/26/22 1:45 AM) MCV [80.0-99.0 fL] 91.7 fL (05/26/22 1:45 AM) MCHC [32.0-36.0 g/dL] 33.9 g/dL (05/26/22 1:45 AM) Lymph Absolute [1.2-3.4 K/mcL] 1.7 K/mcL (05/26/22 1:45 AM) Hct [37.0-52.0 %] 37.8 % (05/26/22 1:45 AM) Barnwell Absolute [0.1-0.6 K/mcL] 1.2 K/mcL *HI* (05/26/22 1:45 AM) MCH [27.0-31.0 pg] 31.1 pg *HI* (05/26/22 1:45 AM) Neutro Absolute [1.4-6.5 K/mcL] 12.4 K/mcL *HI* (05/26/22 1:45 AM) Hgb [12.0-18.0 g/dL] 12.8 g/dL (05/26/22 1:45 AM) MPV [7.4-10.4 fL] 10.1 fL (05/26/22 1:45 AM) Platelets [130-400 K/mcL] 321 K/mcL (05/26/22 1:45 AM) Eos Absolute [0.0-0.2 K/mcL] 0.0 K/mcL (05/26/22 1:45 AM) RDW-CV [11.5-14.5 %] 13.1 % (05/26/22 1:45 AM) Imm Gran Absolute 0.15 *NA* (05/26/22 1:45 AM) Imm Gran Auto [0.0-0.5 %] 1.0 % *HI* (05/26/22 1:45 AM) SARS-CoV-2 (COVID-19) PCR (GeneXpert) [Negative] Negat lilly (05/26/22 2:10 AM) Employed in healthcare? No *NA* (05/26/22 2:10 AM) Symptomatic as defined by CDC? No *NA* (05/26/22 2:10 AM) Hospitalized due to COVID-19? No *NA* (05/26/22 2:10 AM) In ICU? No *NA* (05/26/22 2:10 AM) Group care resident? No *NA* (05/26/22 2:10 AM) status? *NA* (05/26/22 2:10 AM) ABO/Rh Echo A POS *Unknown* (05/26/22 1:45 AM) Eos, Auto [0.00-3.00 %] 0.30 % (05/26/22 1:45 AM) ABSC Echo Negative ABSC (05/26/22 1:45 AM) Vital Signs Most recent to oldest 1 2 3 [Reference Range]: Temperature Temporal Artery 36.9 Deg C 36.8 Deg C 37.2 Deg C [36-38 Deg C] (05/27/22 9:16 AM) (05/26/22 8:00 PM) (05/26/22 7:13 AM) Temperature Temporal Artery 99.32 Deg F 98.78 Deg F 98.9 6 Deg F (DegF) [97.3-100 Deg F] (05/26/22 6:00 AM) (05/26/22 5:33 AM) (1 07/26/21 5:18 AM) Peripheral Pulse Rate 85 bpm [60-100 bpm] (05/25/22 11:07 PM) Heart Rate Monitored 90 bpm 100 bpm 96 bpm [60-100 bpm] (05/27/22 9:16 AM) (05/26/22 7:13 AM) (05/26/22 6:00 AM) Respiratory Rate [12-24 18 br/min 18 br/min 18 br/mi n br/min] (05/27/22 9:16 AM) (05/26/22 8:00 PM) (05/26/22 7:13 AM) Blood Pressure 116/62 mmHg 130/67 mmHg 110/57 mmHg [90-140/60-90 mmHg] (05/27/22 9:16 AM) (05/26/22 8:00 PM) (05/26 7:13 AM) Mean Arterial Pressure, 88 mmHg 90 mmHg 91 mmHg Cuff [65-140 mmHg] (05/26/22 8:00 PM) (05/26/22 6:00 AM) ( 5:33 AM) Blood Pressure Location Left arm Left arm Left arm (05/27/22 9:16 AM) (05/26/22 7:13 AM) (05/26/22 6:00 AM) Blood Pressure Method Automatic Automatic Automatic (05/26/22 7:13 AM) (05/26/22 6:00 AM) (05/26/22 5:33 AM) Weight 74.700 kg (05/26/22 1:26 AM) Weight Dosing 74.700 kg (05/26/22 1:26 AM) Height 172.000 cm (05/26/22 1:26 AM) Height/Length Dosing 172.000 cm (05/26/22 1:26 AM) Body Mass Index 25.250 kg/m2 (05/26/22 1:26 AM) Hospital Discharge Instructions Patient Rronnfoez02/17/2022 07:06:38Circumcision, , Care After Circumcision, Infant, Care After This sheet gives you information about how to care for your baby after the procedure. Your health care provider may also give you more specific instructions. If you have problems or questions about caring for your baby after the procedure, contact your health care provider. What can I expect after the procedure? After the procedure, it is common for babies to have: ??? Redness and swelling on the tip of the penis. ??? A small amount of dried blood on the diaper or on the gauze bandage (dressing) on the penis. ??? A small amount of yellow discharge on the tip of the penis. Follow these instructions at home: Medicines ??? Give your baby zelu-qjd-mrhzndn and prescription medicines only as told by your baby's health care provider. ??? Do not give your baby aspirin because of the association with Yulissa syndrome. Incision care ??? Follow instructions from your baby's health care provider about how to take care of your baby's penis. Make sure you: ??? Wash your hands with soap and water before and after you change your baby's bandage (dressing). If soap and water are not available, use hand profiling machine set up operator. ??? Remove the dressing at every diaper change, or as often as told by your baby's health care provider. Make sure to change your baby's diaper frequently. ??? Gently clean your baby's penis with warm water. Ask your baby's health care provider if you should use a mild soap. Do not pull back on the skin of the penis when you clean it. ??? Apply ointment to the tip of the penis. Use petroleum jelly or the type of ointment that your baby's health care provider recommends. ??? Cover the penis gently with a clean gauze dressing as told by your baby's health care provider. ??? If your baby does not have a dressing on his penis: ??? Wash your hands with soap and water before and after you change your baby's diaper. If you cannot use soap and water, use hand profiling machine set up operator. ??? Clean your baby's penis each time you change his diaper. Do not pull back on the skin of the penis. ??? Apply ointment to the tip of the penis. Use petroleum jelly or the type of ointment that your baby's health care provider recommends. ??? Check your baby's penis every time you change his diaper. Check for: ??? More redness or swelling. ??? More blood after initial bleeding has stopped. ??? Draining of cloudy fluid. ??? Pus or a bad smell. General instructions ??? If your baby was circumcised using a plastic tracey-shaped device, the plastic ring will fall off in 10???12 days. Let the ring fall off by itself. Do not pull the ring off. ??? Healing should be complete in 7???10 days. ??? Keep all follow-up visits as told by your baby's health care provider. This is important. Contact a health care provider if: ??? Your baby has a fever. ??? Your baby has a poor appetite or is not interested in eating. ??? The tip of your baby's penis stays red or swollen for more than 3 days. ??? Your baby's penis bleeds enough to make a stain that is larger than the size of a quarter. ??? There is cloudy fluid coming from the circumcision site. ??? Your baby's penis has a yellow, cloudy crust on it for more than 7 days. ??? Your baby's plastic ring has not fallen off after 10 days. ??? Your baby's plastic ring moves out of place. ??? You have a problem or questions about caring for your baby after the procedure. Get help right away if: ??? Your baby has a temperature of 100.4??F (38??C) or higher. ??? Your baby's penis becomes more red or swollen. ??? The tip of your baby's penis turns black. ??? Your baby has not wet a diaper in 6???8 hours. ??? Your baby's penis starts to bleed and does not stop. Summary ??? After the procedure, it is common for your baby to have swelling on the tip of the penis. ??? Follow instructions from your baby's health care provider about how to take care of your baby's penis. ??? Give your baby omze-lcg-fnuqdzj and prescription medicines only as told by your baby's health care provider. Do not give your baby aspirin because of the association with Yulissa syndrome. ??? Get help right away if your baby has a temperature of 100.4??F (38??C) or higher. ??? Keep all follow-up visits as told by your baby's health care provider. This is important. This information is not intended to replace advice given to you by your health care provider. Make sure you discuss any questions you have with your health care provider. Document Revised: 11/28/2018 Document Reviewed: 11/28/2018 [employer] Patient Education ?? 2021 [employer] Charlie. 05/27/2022 07:06:19[place] - [facility] - Vaginal or Delivery Post Discharge Instructions(CUSTOM)[facility] POST DISCHARGE INSTRUCTIONS Going home after a Vaginal or delivery GENERAL: You have just had a baby. It is normal to feel tired and worn out over the next several weeks. Sleep is difficult to get when you have a . We recommend sleeping when your baby sleeps if possible or asking someone to watch your so you can nap. Some discomfort is expected after a vaginal delivery. Most times this discomfort can be adequately managed with rest, heat, Ibuprofen, and Tylenol. Occasionally a narcotic may be needed for breakthrough pain. If you begin to have pain that is not controlled with the medications you were sent home with or if you develop fever and chills, please give the office a call. Vaginal bleeding is normal as your uterus works on returning to its normal size. While nursing yourbaby your uterus may feel crampy and your bleeding may increase during these times. You may experience some clots that may be dime size, quarter size and fifty cent size. This is normal. If you continue to pass larger clots, and the flow is increasing over 4 hours, we recommend that you call the office. If you had a vaginal tear that required suturing these sutures will dissolve over the next three weeks. During this process you may notice some yellowish drainage that may have a foul odor. This is the suture material breaking down, and it is a normal process. Keep the tissue clean with your pericarebottle or by taking a bath. Tucks pads can also be helpful. If you have an incision on your abdomen these sutures will dissolve on their own over the next 2 to 3 weeks. There are sutures that are deeper inside that will take 3 months to dissolve. Remember that eating a diet rich in protein will help your incision heal. When showering let the water run over your incision and pat dry with a towel. You do not need to redress the wound. If it rubs against your pants and feels sore, it is fine to place agauze pad between your incision and your clothing for cushioning. If you are your milk will come in three or four days after you have given . It is normal for your nipples to feel sore for the first couple of weeks, but it is not normal for them to bleed, crack, or feel so raw that you feel like stopping breast feeding. We have support on the OB unit and Tiny is also a data center consultant in the office. They are very willing to help and provide support in any way they can. During your we talked about what your control plans would be after your delivery. Most times we can make a plan at your six week post checkup and start the plan of your choice at that time. If we know ahead of time what your plan is we can schedule you appropriately and make sure we have what we need on hand when you come for the appointment. It is normal to experience post blues. Your hormone levels change dramatically after you deliver and this can cause you to feel tired, teary eyed, sad, and overwhelmed at times. The post partumblues typically improve after 2-3 weeks. Post depression can settle in after that and can be very worrisome. If you feel that you cannot stop crying, do not want to see your baby, are strugglingto leave your house and/or find that your mind is racing and you can't settle down, please call [facility], and we can see you to discuss depression. ACTIVITY: If you had a vaginal tear that required suturing please avoid sexual intercourse until your six week post visit. If you had no tearing we recommend that you wait to have intercourse until all of your bleeding has stopped. Keep in mind that you can get if you aren't on anything for contraception. If your baby was delivered by please avoid sexual intercourse until your six week post visit. You should also do no heavy lifting for six weeks. Any lifting that takes the strength of both of your arms/hands is contraindicated. If you need both hands because whatever you are lifting is cumbersome that is fine. For example, a laundry basket with a few bath towels in it. Also it is good for you to climb stairs and to go for small walks. Your blood volume doubles during . After delivery your body works on removing all of this extra fluid. You may have noticed that your legs and ankles felt pretty swollen prior to delivery. Itis normal to see this swelling get worse after delivery. It gets worse if you aren't drinking enoughwater and/or if you are eating foods with too much sodium. Push the water and watch your salts to help the swelling resolve as quickly as possible. Putting your feet up and wearing 2 pairs of socks forcompression can help as well. Most post women who wish to return to work typically do so between 6 and 12 weeks. If you feel you have recovered to the point that you are ready to return to work, please call the office and let one of the secretaries know. It is usually best to discuss your return to work with your employer and pick a date for your return you both agree upon. Let us know that date and a letter will be provided that can be faxed to your employer clearing you to return to work without restriction on your chosen date. MEDICATIONS: Continue all regularly prescribed medications unless your provider told you to stop a particular medication after your delivery. Continue taking your vitamins until your six week post visit. Ibuprofen is the best medication for your baseline pain control. Taking 600mg by mouth every four hours well help with most of your post pain. Taking it with food is best so it doesn't upset your stomach. Taking it consistently will provide you the greatest pain relief. Tylenol combined with a narcotic: You may have been sent home with a narcotic for pain control. Taking 1 or 2 tablets every 4-6 hours as needed can be helpful for pain you have that isn't covered by the Ibuprofen. We recommend trying one tablet in an attempt to get your pain at a five or less on the pain scale. If after twenty minutes your pain is still greater than a five, you may take the second tablet. There is typically 325mg of Tylenol in each tablet. Be careful not to consume more than 3000mgof Tylenol daily. Most people will find that they need narcotic containing medications sparingly andwithin a few days not at all. If you had a delivery you may need this medication for a few extra days. These medications are constipating, can leave you slightly sick to your stomach and don'thelp with inflammation. Increase fluids and fiber. You may need an over the counter stool softener such as Colace or Senna. Taper this type of medication first and then the Ibuprofen. Our office policyis that post op patients can use narcotics in addition to Ibuprofen for up to 7 days. After that, post op pain should be treated with Ibuprofen alone and no further prescriptions for narcotics will be provided. These are the two main medications that we use for post op pain management. See below for the medications that we have recommended you use when you go home. You will have to have the prescriptions filled by your pharmacy. Ibuprofen 600mg by mouth every 4 hours for baseline pain control. Percocet 5/325mg by mouth, 1 or 2 tablets every 4 to 6 hours as needed for pain. Tylenol #3 by mouth, 1 or 2 tablets every 4 to 6 hours as needed for pain. Continue taking your vitamins at least until your six week post visit. Iron sulfate 325mg twice daily - take on an empty stomach with a glass of OJ or a vitamin C tablet until gone. Colace or Senakot once or twice daily to avoid constipation. NorQD for control taken daily at the same time starting in 2 weeks. FOLLOW UP APPOINTMENT: Post appointment is on @ . If this time does not work for you, please call the office to reschedule. The number is [phone]. If you need to contact Maternity the number is and ask for the Maternity Department. [facility] Discharge instructions Maria L New: PERFORM Event Display: Discharge Instructions Authored Date: [id number] GASTON HUDSON :2000 Age:21 years Sex:Female Visit Date:05/25/2022 Hospital Discharge Instructions We would like to thank you for allowing us to assist you with your healthcare needs. The following includes patient education materials and information regarding your injury/illness. After you leave the hospital, you may get your health information including your test results, physician notes and discharge information by accessing your Patient Portal. Your Next Steps Discharge Orders Discharge Diet Instruction, Regular Discharge Patient Instructions, Continue vitamins. Tylenol or Motrin every 4 hours as needed for pain. Gradually increase activity. Notify doctor if temperature greater than 100.5 ??F. Nothingin vagina for 6 weeks or until bleeding stops. Contraception . Discharge Patient Instructions, Estimated date of return to work 6 weeks. Discharge Patient Instructions, Breastfeed baby Medications What How Much When Instructions Next Dose New sertraline (sertraline 50 mg oral tablet) 1 tab Oral (given by mouth) Every day Refills: 4 Pickup at [facility] Pharmacy Information [facility]: [address] [place] [id number] [phone] Your Summary Your Care Team Admitting Physician - All Chadwick Attending Physician - All Chadwick Referring Physician - All Chadwick Your Diagnosis Spontaneous vaginal delivery Labor without complication Depression during puerperium Problems Ongoing - Any problem that you are currently receiving treatment for. Tests Performed/Pending ABO/Rh Echo Antibody Screen Echo Automated Diff CBC w/ Diff COVID 19 (GeneXpert) Discharge Vitals Temperature??(Temporal Artery) 98.4 ??F (36.9 ??C) Heart Rate??(Monitored) 90 Respiratory Rate?? 18 Blood Pressure?? 116/62?? Allergies No Known Medication Allergies Education Materials Circumcision, , Care After This sheet gives you information about how to care for your baby after the procedure. Your health care provider may also give you more specific instructions. If you have problems or questions about caring for your baby after the procedure, contact your health care provider. What can I expect after the procedure? After the procedure, it is common for babies to have: ? Redness and swelling on the tip of the penis. ? A small amount of dried blood on the diaper or on the gauze bandage (dressing) on the penis. ? A small amount of yellow discharge on the tip of the penis. Follow these instructions at home: Medicines ? Give your baby hefw-yps-hustydc and prescription medicines only as told by your baby's health care provider. ? Do not give your baby aspirin because of the association with Yulissa syndrome. Incision care ? Follow instructions from your baby's health care provider about how to take care of your baby's penis. Make sure you: ? Wash your hands with soap and water before and after you change your baby's bandage (dressing). If soap and water are not available, use hand profiling machine set up operator. ? Remove the dressing at every diaper change, or as often as told by your baby's health care provider.Make sure to change your baby's diaper frequently. ? Gently clean your baby's penis with warm water. Ask your baby's health care provider if you should use a mild soap. Do not pull back on the skin of the penis when you clean it. ? Apply ointment to the tip of the penis. Use petroleum jelly or the type of ointment that your baby'shealth care provider recommends. ? Cover the penis gently with a clean gauze dressing as told by your baby's health care provider. ? If your baby does not have a dressing on his penis: ? Wash your hands with soap and water before and after you change your baby's diaper. If you cannot use soap and water, use hand profiling machine set up operator. ? Clean your baby's penis each time you change his diaper. Do not pull back on the skin of the penis. ? Apply ointment to the tip of the penis. Use petroleum jelly or the type of ointment that your baby'shealth care provider recommends. ? Check your baby's penis every time you change his diaper. Check for: ? More redness or swelling. ? More blood after initial bleeding has stopped. ? Draining of cloudy fluid. ? Pus or a bad smell. General instructions ? If your baby was circumcised using a plastic tracey-shaped device, the plastic ring will fall off in 10???12 days. Let the ring fall off by itself. Do not pull the ring off. ? Healing should be complete in 7???10 days. ? Keep all follow-up visits as told by your baby's health care provider. This is important. Contact a health care provider if: ? Your baby has a fever. ? Your baby has a poor appetite or is not interested in eating. ? The tip of your baby's penis stays red or swollen for more than 3 days. ? Your baby's penis bleeds enough to make a stain that is larger than the size of a quarter. ? There is cloudy fluid coming from the circumcision site. ? Your baby's penis has a yellow, cloudy crust on it for more than 7 days. ? Your baby's plastic ring has not fallen off after 10 days. ? Your baby's plastic ring moves out of place. ? You have a problem or questions about caring for your baby after the procedure. Get help right away if: ? Your baby has a temperature of 100.4??F (38??C) or higher. ? Your baby's penis becomes more red or swollen. ? The tip of your baby's penis turns black. ? Your baby has not wet a diaper in 6???8 hours. ? Your baby's penis starts to bleed and does not stop. Summary ? After the procedure, it is common for your baby to have swelling on the tip of the penis. ? Follow instructions from your baby's health care provider about how to take care of your baby's penis. ? Give your baby iujk-uot-iyhptnm and prescription medicines only as told by your baby's health care provider. Do not give your baby aspirin because of the association with Yulsisa syndrome. ? Get help right away if your baby has a temperature of 100.4??F (38??C) or higher. ? Keep all follow-up visits as told by your baby's health care provider. This is important. This information is not intended to replace advice given to you by your health care provider. Make sure you discuss any questions you have with your health care provider. Document Revised: 11/28/2018 Document Reviewed: 11/28/2018 [employer] Patient Education ?? 2021 [employer]. [facility] POST DISCHARGE INSTRUCTIONS Going home after a Vaginal or delivery GENERAL: You have just had a baby. It is normal to feel tired and worn out over the next several weeks. Sleepis difficult to get when you have a . We recommend sleeping when your baby sleeps if possibleor asking someone to watch your so you can nap. Some discomfort is expected after a vaginal delivery. Most times this discomfort can be adequately managed with rest, heat, Ibuprofen, and Tylenol. Occasionally a narcotic may be needed for breakthrough pain. If you begin to have pain that is not controlled with the medications you were sent home withor if you develop fever and chills, please give the office a call. Vaginal bleeding is normal as your uterus works on returning to its normal size. While nursing your baby your uterus may feel crampy and your bleeding may increase during these times. You may experience some clots that may be dime size, quarter size and fifty cent size. This is normal. If you continueto pass larger clots, and the flow is increasing over 4 hours, we recommend that you call the office. If you had a vaginal tear that required suturing these sutures will dissolve over the next three weeks. During this process you may notice some yellowish drainage that may have a foul odor. This is thesuture material breaking down, and it is a normal process. Keep the tissue clean with your pericare bottle or by taking a bath. Tucks pads can also be helpful. If you have an incision on your abdomen these sutures will dissolve on their own over the next 2 to 3 weeks. There are sutures that are deeperinside that will take 3 months to dissolve. Remember that eating a diet rich in protein will help your incision heal. When showering let the water run over your incision and pat dry with a towel. You do not need to redress the wound. If it rubs against your pants and feels sore, it is fine to place a gauze pad between your incision and your clothing for cushioning. If you are your milk will come in three or four days after you have given . It isnormal for your nipples to feel sore for the first couple of weeks, but it is not normal for them tobleed, crack, or feel so raw that you feel like stopping breast feeding. We have support on the OB unit and Tiny is also a data center consultant in the office. They are very willing to help and provide support in any way they can. During your we talked about what your control plans would be after your delivery. Most times we can make a plan at your six week post checkup and start the plan of your choice atthat time. If we know ahead of time what your plan is we can schedule you appropriately and make sure we have what we need on hand when you come for the appointment. It is normal to experience post blues. Your hormone levels change dramatically after you deliver and this can cause you to feel tired, teary eyed, sad, and overwhelmed at times. The post blues typically improve after 2-3 weeks. Post depression can settle in after that and can be very worrisome. If you feel that you cannot stop crying, do not want to see your baby, are struggling to leave your house and/or find that your mind is racing and you can't settle down, please call [facility],and we can see you to discuss depression. ACTIVITY: If you had a vaginal tear that required suturing please avoid sexual intercourse until your six weekpost visit. If you had no tearing we recommend that you wait to have intercourse until all ofyour bleeding has stopped. Keep in mind that you can get if you aren't on anything for contraception. If your baby was delivered by please avoid sexual intercourse until your six week post visit. You should also do no heavy lifting for six weeks. Any lifting that takes the strength of both of your arms/hands is contraindicated. If you need both hands because whatever you are lifting is cumbersome that is fine. For example, a laundry basket with a few bath towels in it. Also it is goodfor you to climb stairs and to go for small walks. Your blood volume doubles during . After delivery your body works on removing all of this extra fluid. You may have noticed that your legs and ankles felt pretty swollen prior to delivery. It is normal to see this swelling get worse after delivery. It gets worse if you aren't drinking enough water and/or if you are eating foods with too much sodium. Push the water and watch your salts to help the swelling resolve as quickly as possible. Putting your feet up and wearing 2 pairs of socks for compression can help as well. Most post women who wish to return to work typically do so between 6 and 12 weeks. If you feel you have recovered to the point that you are ready to return to work, please call the office and let one of the secretaries know. It is usually best to discuss your return to work with your employer and pick a date for your return you both agree upon. Let us know that date and a letter will be provided that can be faxed to your employer clearing you to return to work without restriction on your chosen date. MEDICATIONS: Continue all regularly prescribed medications unless your provider told you to stop a particular medication after your delivery. Continue taking your vitamins until your six week post visit. Ibuprofen is the best medication for your baseline pain control. Taking 600mg by mouth every four hours well help with most of your post pain. Taking it with food is best so it doesn't upset your stomach. Taking it consistently will provide you the greatest pain relief. Tylenol combined with a narcotic: You may have been sent home with a narcotic for pain control. Taking 1 or 2 tablets every 4-6 hours as needed can be helpful for pain you have that isn't covered by the Ibuprofen. We recommend trying one tablet in an attempt to get your pain at a five or less on the pain scale. If after twenty minutes your pain is still greater than a five, you may take the second tablet. There is typically 325mg of Tylenol in each tablet. Be careful not to consume more than 3000mg of Tylenol daily. Most people will find that they need narcotic containing medications sparingly and within a few days not at all. If you had a delivery you may need this medication for a few extra days. These medications are constipating, can leave you slightly sick to your stomach and don't help with inflammation. Increase fluids and fiber. You may need an over the counter stool softener such as Colace or Senna. Taper this type of medication first and then the Ibuprofen. Our office policy is that post op patients can use narcotics in addition to Ibuprofen for up to 7 days. After that, post op pain should be treated with Ibuprofen alone and no further prescriptions for narcotics will be provided. These are the two main medications that we use for post op pain management. See below for the medications that we have recommended you use when you go home. You will have to have the prescriptions filled by your pharmacy. Ibuprofen 600mg by mouth every 4 hours for baseline pain control. Percocet 5/325mg by mouth, 1 or 2 tablets every 4 to 6 hours as needed for pain. Tylenol #3 by mouth, 1 or 2 tablets every 4 to 6 hours as needed for pain. Continue taking your vitamins at least until your six week post visit. Iron sulfate 325mg twice daily - take on an empty stomach with a glass of OJ or a vitamin C tablet until gone. Colace or Senakot once or twice daily to avoid constipation. NorQD for control taken daily at the same time starting in 2 weeks. FOLLOW UP APPOINTMENT: Post appointment is on @ . If this time does not work for you, please call the office to reschedule. The number is . If you need to contact Maternity the number is and ask for the Maternity Department. Patient Name:GASTON HUDSON I have received this information and my questions have been answered. Patient/Clinical Technologist Name: Patient/Clinical Technologist Signature: Relationship to Patient: Witness Name/Signature: Date: Electronically Signed on: 05/27/2022 11:37 ESTSigned by:All Bailey: PERFORM Event Display: OB Delivery Summary Authored Date: [id number] GASTON HUDSON :2000 Age:21 years Sex:Female Visit Date:05/25/2022 Delivery Spontaneous Vaginal Delivery Disposition Doing well History/Labor Course 21yo , NICOLASA- 05/31/2022 The patient presented to OB??at 39-2/7 weeks??due to??regular contractions.??She received care at [facility]. Her??blood type is??A Positive and she is GBS Negative.?On admission, her cervix was??4 cm??/ 100%/+1??with??a Vertex presentation and Intact?? Membranes.?? Contractions were occurring every 1 to 2 minutes. ??She had Nubain for labor analgesia. ??She progressed well to complete dilation. ??She pushed for??approximately 5 contractions and accomplished delivery. ??She had a Spontaneous Vaginal Delivery of a live??Male .?? The nose and pharynx were suctioned on the perineum pr ior to delivery of the shoulders. ??There was no nuchal cord. ??The baby's delivery was easily accomplished.?? After delivery, the baby was placed onto his mother's abdomen.?? After delayed clamping, the cord was cut. ??Apgars 9/9.?? The placenta delivered spontaneously and was intact.?? She received??Pitocin 10 units IM and uterine fundus firmed up well.?? There were no??lacerations. ??EBL 100 mL. Delivery Documentation Additional Delivery Information Presenting PartVertex(Recorded: 05/26/2022 03:25 EST) Presenting PartVertex(Recorded: 05/26/2022 00:38 EST) Assessment/Plan 1.??Spontaneous vaginal delivery??O80,??Labor without complication??O80 Orders: acetaminophen, 650 mg = 2 tab, Oral, Tab, every 4 hr, PRN pain, mild, First Dose: 05/26/22 0:52:00 EST, Routine benzocaine-menthol 20%-0.5% topical spray, 1 niko, Topical, [place], As Directed, PRN other (see comment), First Dose: 05/26/22 0:52:00 EST, Routine calcium (as carbonate) 500 mg oral tablet, 500 mg = 1 tab, Oral, Tab-Chew, every 2 hr, PRN dyspepsia, First Dose: 05/26/22 0:52:00 EST, Routine docusate-senna 50 mg-8.6 mg oral tablet, 1 tab, Oral, Tab, BID, PRN constipation, First Dose: 05/26/22 0:52:00 EST, Routine ibuprofen, 600 mg = 1 tab, Oral, Tab, every 4 hr, PRN pain, mild, First Dose: 05/26/22 0:52:00 EST,Routine Lactated Ringers Injection 1,000 mL, Total Volume (mL): 1,000, 1,000 mL, Soln- IV, IV, 150 mL/hr, Start Date: 05/26/22 1:16:00 EST, Populate Charting Weight From Order measles/mumps/rubella virus vaccine, 0.5 mL, Subcutaneous, Injection, Once, First Dose: 05/26/22 1:00:00 EST, Stop Date: 05/26/22 1:00:00 EST, Physician Stop, Routine methylergonovine, 0.2 mg = 1 mL, IM, Vial, Once, PRN other (see comment), First Dose: 05/26/22 0:52:00 EST, Physician Stop, Routine miSOPROStol, 1,000 mcg = 5 tab, AL, Tab, Once, PRN bleeding, First Dose: 05/26/22 0:52:00 EST, Physician Stop, Routine multivitamin, , 1 tab, Oral, Tab, Daily, First Dose: 05/26/22 9:00:00 EST, Routine naloxone, 0.1 mg = 0.25 mL, IV Push, Injection, every 5 min, PRN other (see comment), First Dose: 05/26/22 0:52:00 EST, Routine oxytocin, 10 units = 1 mL, IM, Vial, Once, PRN other (see comment), First Dose: 05/26/22 0:52:00 EST, Physician Stop, Routine simethicone, 80 mg = 1 tab, Oral, Tab-Chew, As Directed, PRN gas, First Dose: 05/26/22 0:52:00 EST,Routine tetanus/diphth/pertuss (Tdap) adult/adol, 0.5 mL, IM, Injection, Once, First Dose: 05/26/22 1:00:00EST, Stop Date: 05/26/22 1:00:00 EST, Physician Stop, Routine tranexamic acid, 1,000 mg = 10 mL, IV Piggyback, Injection, Once, PRN bleeding, Administer over: 20minutes, First Dose: 05/26/22 0:52:00 EST, Physician Stop, Routine, 330 mL/hr witch fabiola 50% rectal pad, 1 niko, Topical, Pad, As Directed, PRN other (see comment), First Dose: 05/26/22 0:52:00 EST, Routine Activity, 05/26/22 0:49:00 EST, Stop date 05/26/22 0:49:00 EST, Up ad antoni Bathroom Privileges, 05/26/22 0:49:00 EST, Constant Order Communication Order, 05/26/22 0:52:00 EST, If not voiding, straight cath as needed Diet Order, 05/26/22 0:49:00 EST, Regular Heart Monitoring, 05/26/22 0:49:00 EST, PRN, Continuous monitoring during a) epidural anesthesia;b) oxytocin administration, c) 2 hours after use of Cytotec Hourly Rounding, 05/26/22 0:49:00 EST, PRN, Maternal and Monitoring per policy Isolation Precautions, 05/26/22 0:49:00 EST, Whitney Precautions Misc Nursing Task, 05/26/22 0:52:00 EST, Stop date 05/26/22 0:52:00 EST, Initiate appropriate standards of care Misc Nursing Task, 05/26/22 0:52:00 EST, Stop date 05/26/22 0:52:00 EST, Assess fundus and lochia per standard of care Nitrous Oxide-OB, 05/26/22 0:49:00 EST, Stop date 05/26/22 0:49:00 EST, per OB standard of care Notify Provider, 05/26/22 0:49:00 EST, Constant order, If temperature greater than 38 C, if pulse greater than 100, or if blood pressure is dropping Notify Provider, 05/26/22 0:49:00 EST, Of patient arrival Notify Provider, 05/26/22 0:52:00 EST, Constant order, If temperature greater than 38 C, if pulse greater than 100, or if blood pressure is dropping Notify Provider, 05/26/22 0:49:00 EST, Constant order, For severe headaches, visual changes, RUQ pain. Notify Provider of Vital Signs, 05/26/22 0:49:00 EST, If temperature greater than 38 C, if pulse greater than 100, or if blood pressure is dropping., Constant Indicator Checks, 05/26/22 0:52:00 EST, every 12 hr (pool), PRN PSO Admit to Inpatient, Obstetrics, Inpatient, All Chadwick, 05/26/22 1:22:00 EST, 05/26/22 1:22:00 EST, 05/26/22 1:22:00 EST, 2 midnights or more Resuscitation Status, 05/26/22 0:49:00 EST, Full Code Shower Privileges, 05/26/22 0:49:00 EST, PRN Temperature, 05/26/22 0:49:00 EST, Constant order, q4 hours until ROM, then q1 hours Vaginal Exam, 05/26/22 0:49:00 EST, Perform vaginal exam prior to pain medication administration, epidural placement, & PRN - If gestation < 34weeks, documented Placenta Previa, or vaginal bleeding consult provider, Stop date 05/26/22 0:49:00 EST Vital Signs, 05/26/22 0:52:00 EST, Once, Stop date 05/26/22 0:52:00 EST LMP/EGA/NICOLASA No qualifying data available. Gestational Age (EGA) and NICOLASA? * Note: EGA calculated as of 05/26/2022 ?? NICOLASA:??05/31/2022?EGA*:??39 weeks 2 days ?Type:??Initial?Method Date:??08/24/2021 ?Method:??Last Menstrual Period??(08/24/2021) ?Confirmation:??Confirmed ?Description:?Date Approximate ?Comments:??-- ?Entered by:??All Chadwick on 05/26/2022? Other NICOLASA Calculations for this : ?No additional NICOLASA calculations have been recorded for this OB History History?(0,0,0,0)?No previous pregnancies history have been recorded Antepartum Risk Factors No risk factors documented Problem List/Past Medical History Ongoing Historical No qualifying data Medications Inpatient acetaminophen, 650 mg= 2 tab, Oral, every 4 hr, PRN benzocaine-menthol 20%-0.5% topical spray, 1 niko, Topical, As Directed, PRN calcium (as carbonate) 500 mg oral tablet, 500 mg= 1 tab, Oral, every 2 hr, PRN docusate-senna 50 mg-8.6 mg oral tablet, 1 tab, Oral, BID, PRN ibuprofen, 600 mg= 1 tab, Oral, every 4 hr, PRN Lactated Ringers Injection 1,000 mL, 1000 mL, IV measles/mumps/rubella virus vaccine, 0.5 mL, Subcutaneous, Once methylergonovine, 0.2 mg= 1 mL, IM, Once, PRN miSOPROStol, 1000 mcg= 5 tab, AL, Once, PRN multivitamin, , 1 tab, Oral, Daily naloxone, 0.1 mg= 0.25 mL, IV Push, every 5 min, PRN oxytocin, 10 units= 1 mL, IM, Once, PRN simethicone, 80 mg= 1 tab, Oral, As Directed, PRN tetanus/diphth/pertuss (Tdap) adult/adol, 0.5 mL, IM, Once tranexamic acid witstewart fabiola 50% rectal pad, 1 niko, Topical, As Directed, PRN Home No active home medications Allergies No Known Medication Allergies Transcribed Labs ABO/Rh Echo: A POS Electronically Signed on 05/26/2022 05:09 AM All [facility]wick Progress note Ashish Lima MD, FACOG: PERFORM Event Display: Progress Note - Physician Authored Date: [id number] GASTON HUDSON :2000 Age:21 years Sex:Female Visit Date:05/25/2022 Subjective blues starting already.?? Had been prescribed sertraline but didn't start it and previously on antipsychotic but felt was too strong. Objective Vitals & Measurements T:??37.2?C ??(Temporal Artery)?? TMIN:??36.7?C ??(Temporal Artery)?? TMAX:??37.4?C ??(Temporal Artery)?? HR:??100??(Monitored)?? RR:??18?? BP:??110/57?? SpO2:??98%?? HT:??172.000??cm?? WT:??74.700??kg?? BMI:??25.250?? Pain Score:??0?? O2 Therapy:??Room air?? 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 Orders: sertraline 50 mg oral tablet, 50 mg = 1 tab, Oral, Daily, # 30 tab, 4 Refill(s), Pharmacy: [id number], 172, cm, 05/26/22 1:28:00 EST, Height/Length Dosing, 74.7, kg, 05/26/22 1:28:00 EST, Weight Dosing sertraline, 50 mg = 1 tab, Oral, Tab, Daily for 30 days, First Dose: 05/26/22 20:00:00 EST, Stop Date: 06/25/22 8:59:00 EST, Physician Stop, Routine Electronically Signed on 05/26/22 07:24 PM Ashish Lima MD, FACOG History and physical note All [facility] P: PERFORM Event Display: History and Physical Authored Date: [id number] GASTON HUDSON :2000 Age:21 years Sex:Female Visit Date:05/25/2022 History of Present Illness 21yo , NICOLASA- 05/31/2022 The patient presented to OB??due to??regular contractions.?? Thin mucus discharge??and some clear fluid earlier today.?? No vaginal bleeding. ??She received care at [facility]. ??She went??to the hospital there tonight??for a labor check.?? At that time, cervix was 1.5 cm??/ 90%/-1.?? She??left the hospital??Against Medical Advice??and came here.?? At the time of admission??there is no??prenatalrecord available. ??The patient states that her?? and testing have been normal. ??She??was evaluated at the clinic earlier today. ??She had a??Ultrasound that showed her amniotic fluid to be??a little??bit over 9 cm.?? She states that her??blood type is??A Positive and that she is GBS Negative. Review of Systems Constitutional: No fevers, chills, sweats Eye: No recent visual problems Respiratory: No shortness of breath, cough Cardiovascular: No Chest pain, palpitations, syncope Gastrointestinal: No nausea, vomiting, diarrhea Genitourinary: Vaginal discharge. No hematuria, no dysuria, no unexpected vaginal bleeding Physical Exam Vitals & Measurements T:??37.0?C ??(Temporal Artery)?? HR:??85??(Peripheral)?? HR:??85??(Monitored)?? BP:??108/69?? SpO2:??98%?? General: Alert and oriented, well nourished, no acute distress Skin: Skin is warm, dry and pink, no rashes or lesions HEENT: Normocephalic, grossly normal hearing, moist oral mucosa Lungs: Clear to auscultation bilaterally, non-labored respiration Heart: Regular rate and rhythm, no murmurs, rubs or gallops Abdomen: Gravid, non-tender External Genitalia: Normal female without lesions Cervix: 4cm/100%/+1, Vertex, Membranes Intact Estimated Weight: 7-8# ?? Heart Monitor- Reactive, Reassuring Heart Rate tracing, contractions every??1 to 2 minutes Assessment/Plan 1.??Labor without complication??O80 2.?Z33.1 Admit for delivery. ??We discussed??labor and??plans for??pain management. ??She would like??to sitin the tub??and plans to use??Nitrous Oxide for labor analgesia.?? She signed??consent to obtain herPrenatal Records from [facility]. LMP/EGA/NICOLASA No qualifying data available. Gestational Age (EGA) and NICOLASA? * Note: EGA calculated as of 05/26/2022 ?? NICOLASA:??05/31/2022?EGA*:??39 weeks 2 days ?Type:??Initial?Method Date:??08/24/2021 ?Method:??Last Menstrual Period??(08/24/2021) ?Confirmation:??Confirmed ?Description:?Date Approximate ?Comments:??-- ?Entered by:??All Chadwick on 05/26/2022? Other NICOLASA Calculations for this : ?No additional NICOLASA calculations have been recorded for this OB History History?(0,0,0,0)?No previous pregnancies history have been recorded Antepartum Risk Factors No risk factors documented Problem List/Past Medical History Ongoing Historical No qualifying data Medications Inpatient acetaminophen, 650 mg= 2 tab, Oral, every 4 hr, PRN benzocaine-menthol 20%-0.5% topical spray, 1 niko, Topical, As Directed, PRN calcium (as carbonate) 500 mg oral tablet, 500 mg= 1 tab, Oral, every 2 hr, PRN docusate-senna 50 mg-8.6 mg oral tablet, 1 tab, Oral, BID, PRN ibuprofen, 600 mg= 1 tab, Oral, every 4 hr, PRN measles/mumps/rubella virus vaccine, 0.5 mL, Subcutaneous, Once methylergonovine, 0.2 mg= 1 mL, IM, Once, PRN miSOPROStol, 1000 mcg= 5 tab, AL, Once, PRN multivitamin, , 1 tab, Oral, Daily naloxone, 0.1 mg= 0.25 mL, IV Push, every 5 min, PRN oxytocin, 10 units= 1 mL, IM, Once, PRN simethicone, 80 mg= 1 tab, Oral, As Directed, PRN tetanus/diphth/pertuss (Tdap) adult/adol, 0.5 mL, IM, Once tranexamic acid witch fabiola 50% rectal pad, 1 niko, Topical, As Directed, PRN Home No active home medications Allergies No Known Medication Allergies Transcribed Labs No qualifying data Electronically Signed on 05/26/22 01:06 AM All Chadwick Discharge summary All Chadwick: PERFORM Event Display: Discharge Summary Authored Date: [id number] GASTON HUDSON :2000 Age:21 years Sex:Female Visit Date:05/25/2022 Admission Information Pt admitted 05/26/2022 in Labor Hospital Course PPD#1 21yo 001, the patient presented to OB??39-2/7 weeks in labor. ??She subsequently had a Spontaneous Vaginal Delivery??without complications. ??There were no??perineal lacerations.?? She is??working on breast-feeding.?? Lochial bleeding is tapering. ??Her pain is controlled with??oral Tylenol and?? ibuprofen. Procedures and Treatment Provided Spontaneous Vaginal Delivery Physical Exam Vitals & Measurements T:??36.8?C ??(Temporal Artery)?? RR:??18?? BP:??130/67?? Pain Score:??3?? GENERAL: Cooperative, alert, no acute distress. Appears pale. Not diaphoretic. HEENT: Head is normocephalic, atraumatic. PERRLA.?? HEART: Regular rate and rhythm without murmur. LUNGS: Clear to auscultation bilaterally, no wheeze, rales or rhonchi. ABDOMEN: Soft, nondistended.??Fundus is firm and palpable below the umbilicus. EXTREMITIES: No edema or tenderness. Vagina: No abnormal swelling??or??signs of infection. ??Tapering lochia rubra.?? Medications Inpatient acetaminophen, 650 mg= 2 tab, Oral, every 4 hr, PRN benzocaine-menthol 20%-0.5% topical spray, 1 niko, Topical, As Directed, PRN calcium (as carbonate) 500 mg oral tablet, 500 mg= 1 tab, Oral, every 2 hr, PRN docusate-senna 50 mg-8.6 mg oral tablet, 1 tab, Oral, BID, PRN ibuprofen, 600 mg= 1 tab, Oral, every 4 hr, PRN Lactated Ringers Injection 1,000 mL, 1000 mL, IV measles/mumps/rubella virus vaccine, 0.5 mL, Subcutaneous, Once multivitamin, , 1 tab, Oral, Daily naloxone, 0.1 mg= 0.25 mL, IV Push, every 5 min, PRN sertraline, 50 mg= 1 tab, Oral, Daily simethicone, 80 mg= 1 tab, Oral, As Directed, PRN tetanus/diphth/pertuss (Tdap) adult/adol, 0.5 mL, IM, Once witch fabiola 50% rectal pad, 1 niko, Topical, As Directed, PRN Home sertraline 50 mg oral tablet, 50 mg= 1 tab, Oral, Daily, 4 refills Discharge Plan Discharge??Home. The patient is doing very well overall. She is physically fine with a normal cardiac exam and tapering/finished lochial flow. She and the baby are bonding well and, as expected, are having mostly good days. I reviewed with her when she'll need her next pap and explained she is to callif she has any problems prior to that time. 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 Tylenol or Motrin every 4 hours as needed for pain. Gradually increase activity. Notify doctor if temperature greater than 100.5 ??F. Nothing in vagina for 6 weeks or until bleeding stops. Contraception . Discharge Patient Instructions, Estimated date of return to work 6 weeks. Discharge Patient Instructions, Breastfeed baby Patient Education, 05/27/22 8:05:00 EST, Stop date 05/27/22 8:05:00 EST, teaching per protocol for mother and baby. All Diagnoses This Visit Spontaneous vaginal delivery Labor without complication Depression during puerperium Patient Education Circumcision, Infant, Care After [facility] - Vaginal or Delivery Post Discharge Instructions(CUSTOM) Follow Up She plans ??follow-up at [facility]in [place]. Medication Reconciliation New Prescription sertraline (sertraline 50 mg oral tablet)1 tab Oral (given by mouth) every day. Refills: 4. Electronically Signed on 11/17/22 08:12 AM [facility]
== END 2022-08-12 13:35 | disposition home or self-care (01) ==
PROVIDERS: Emergency Provider Physician Assistant; PCP Nurse Practitioner Family
DX: H66.93 Otitis media, unspecified, bilateral (principal); B34.9 Viral infection, unspecified; R11.2 Nausea with vomiting, unspecified
CPT/HCPCS: 99283

== ENCOUNTER 2022-09-04 15:42 | Emergency (ER) | payer MEDICAID, SELFPAY ==
[2022-09-04 15:44] VITALS: BP 125/76; PULSE 93; RESP 18; TEMP 36.8; O2SAT 99
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
[2022-09-04] MEDS: valACYclovir 1,000 MG TAB 1000 MG PO (16:06)
== END 2022-09-04 16:06 | disposition home or self-care (01) ==
PROVIDERS: Emergency Provider Emergency Medicine; PCP Nurse Practitioner Family
DX: B00.1 Herpesviral vesicular dermatitis (principal)
CPT/HCPCS: 99283; 99284

== ENCOUNTER 2022-11-07 17:57 | Emergency (ER) | payer MEDICAID, SELFPAY ==
[2022-11-07] VITALS (12 sets, daily range): BP systolic 95–116; BP diastolic 59–65; PULSE 80–86; RESP 18; O2SAT 98–100
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
[2022-11-07 19:07] LABS: Abs Immature Grans 0.03 10^3/uL (0.0-0.06); Absolute Basophil Count 0.05 10^3/uL (0.0-0.2); Absolute Eosinophil Count 0.35 10^3/uL (0.0-0.7); Absolute Lymphocyte Count 1.06 10^3/uL (1.2-3.4); Absolute Monocyte Count 0.92 10^3/uL (0.1-0.8); Basophils % 0.4; HCT 40.7 % (36.0-46.0); HGB 13.9 g/dL (11.2-15.7); Immature Grans % 0.3; Lymphocytes % 9.2; MCH 30.5 pg (27.0-33.0); MCHC 34.2 % (32.0-36.0); MCV 90 fL (80-95); MPV 10.1 fL (8.0-11.0); Neutrophils % 79.1; Platelet Count 252 10^3/uL (130-400); RBC 4.55 10^6/uL (3.93-5.22); RDW 12.6 % (11.7-14.6); RDW-SD 41.1 fL
[2022-11-07] MEDS: Normal Saline 1,000 ML 1000 ML IV (19:07)
[2022-11-07] MEDS: Ondansetron 4 MG/2 ML VIAL IVP (19:07)
[2022-11-07 19:17] LABS: ALT 21 U/L (14-59); AST 11 U/L (15-37); Albumin 3.5 g/dL (3.4-5.0); Alkaline Phosphatase 73 U/L (46-116); Anion Gap 7.1 mmol/L (3-11); BUN 12 mg/dL (7-18); Bilirubin, Total 0.7 mg/dL (0.2-1.0); CO2 25.9 mmol/L (21.0-32.0); CREATININE 0.6 mg/dL (0.55-1.02); Calcium 8.2 mg/dL (8.5-10.1); Chloride 108 mmol/L (98-107); Estimated GFR 129.27 (mL/min/1.73m2); Glucose 93 mg/dL (74-106); Lipase 22 U/L (16-77); Potassium 3.8 mmol/L (3.5-5.1); Sodium 141 mmol/L (136-145); Total Protein 7.2 g/dL (6.4-8.2)
[2022-11-07 19:39] LABS: COVID-19 PCR Negative (Negative); Influenza A PCR Negative (Negative); Influenza B PCR Negative (Negative); RSV PCR Negative (Negative)
[2022-11-07 19:41] LABS: Source Nasopharynx
[2022-11-07 20:24] LABS: Bilirubin Negative (Negative); Blood Negative (Negative); Clarity Clear (Clear); Glucose Negative (Negative); Ketones 15 mg/dL (Negative); Leukocyte Esterase Negative (Negative); Nitrite Negative (Negative)
== END 2022-11-07 21:11 | disposition home or self-care (01) ==
PROVIDERS: Emergency Provider Emergency Medicine; PCP Nurse Practitioner Family
DX: R11.2 Nausea with vomiting, unspecified (principal); Z20.822 Contact with and (suspected) exposure to COVID-19
CPT/HCPCS: 36415; 80053; 83690; 87637; 96361; 96374; 99284; 81003; 85025; J2405

== ENCOUNTER 2023-02-11 18:19 | Emergency (ER) | payer MEDICAID, SELFPAY ==
[2023-02-11 18:22] VITALS: BP 115/67; PULSE 74; RESP 20; TEMP 36.8; O2SAT 99
[2023-02-11] MEDS: valACYclovir 500 MG TAB PO (18:55)
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
== END 2023-02-11 18:51 | disposition home or self-care (01) ==
LOC: ER 18:48
PROVIDERS: Emergency Provider Physician Assistant; PCP Nurse Practitioner Family
DX: B00.9 Herpesviral infection, unspecified
CPT/HCPCS: 99283

== ENCOUNTER 2023-03-29 22:09 | Emergency (ER) | payer MEDICAID, SELFPAY ==
[2023-03-29 22:13] VITALS: BP 107/57; PULSE 78; RESP 16; TEMP 36.7; O2SAT 97
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
[2023-03-29] MEDS: valACYclovir 1,000 MG TAB 2000 MG PO (22:42)
== END 2023-03-29 22:47 | disposition home or self-care (01) ==
PROVIDERS: Emergency Provider Emergency Medicine; PCP Nurse Practitioner Family
DX: B00.89 Other herpesviral infection (principal)
CPT/HCPCS: 99283

== ENCOUNTER 2023-04-21 13:51 | Outpatient (REF) | payer MEDICAID, SELFPAY ==
[2023-04-21 14:53] LABS: Source Nasal/Nares
[2023-04-21 16:28] LABS: COVID-19 PCR Negative (Negative)
== END 2023-04-21 13:52 | disposition home or self-care (01) ==
LOC: NCHCN 13:51
PROVIDERS: PCP Nurse Practitioner Family; Visit Provider Physician Assistant Medical
DX: J02.9 Acute pharyngitis, unspecified (principal); B95.4 Other streptococcus as the cause of diseases classified elsewhere
CPT/HCPCS: 87077; 87635; 87070

== ENCOUNTER 2023-04-29 12:07 | Observation (INO) | payer MEDICAID, SELFPAY ==
[2023-04-29 12:09] VITALS: BP 114/68; PULSE 74; RESP 17; TEMP 36.5; O2SAT 100
[2023-04-29 13:46] VITALS: BP 114/62; PULSE 74; RESP 17; TEMP 36.5; O2SAT 100
[2023-04-29 13:47] LABS: Bilirubin Negative (Negative); Blood Trace-intact (Negative); Clarity Clear (Clear); Glucose Negative (Negative); Ketones Negative (Negative); Leukocyte Esterase Negative (Negative); Nitrite Negative (Negative); Specific Gravity 1.025 (1.005-1.025); Urobilinogen 0.2 mg/dL (Up to 0.2); pH 6.5 (5-8)
[2023-04-29 13:59] LABS: Abs Immature Grans 0.12 10^3/uL (0.0-0.06); Absolute Basophil Count 0.12 10^3/uL (0.0-0.2); Absolute Lymphocyte Count 1.96 10^3/uL (1.2-3.4); Basophils % 0.5; Eosinophils % 0.9; HCT 42.8 % (36.0-46.0); HGB 14.8 g/dL (11.2-15.7); Immature Grans % 0.5; Lymphocytes % 8.4; MCH 30.6 pg (27.0-33.0); MCHC 34.6 % (32.0-36.0); MCV 89 fL (80-95); MPV 9.5 fL (8.0-11.0); Monocytes % 6.4; Neutrophils % 83.3; Platelet Count 370 10^3/uL (130-400); RBC 4.83 10^6/uL (3.93-5.22); RDW-SD 39.6 fL; WBC 23.28 10^3/uL (4.4-10.8)
[2023-04-29 14:00] LABS: Absolute Eosinophil Count 0.21 10^3/uL (0.0-0.7); Absolute Monocyte Count 1.49 10^3/uL (0.1-0.8); Absolute Neutrophil Count 19.39 10^3/uL (1.2-6.7)
[2023-04-29 14:02] LABS: Bacteria Few HPF (Negative); C & S Indicated? No/Sq. Contamination; Casts Negative LPF (Negative); Crystals Negative HPF (Negative); Epithelial Cells Many HPF (Negative); Mucus Moderate (Negative); WBC 0-2 HPF (0-5)
[2023-04-29 14:14] LABS: ALT 14 U/L (14-59); AST 10 U/L (15-37); Albumin 3.7 g/dL (3.4-5.0); Alkaline Phosphatase 74 U/L (46-116); Anion Gap 6.7 mmol/L (3-11); BUN 9 mg/dL (7-18); Bilirubin, Total 0.5 mg/dL (0.2-1.0); CO2 26.3 mmol/L (21.0-32.0); CREATININE 0.6 mg/dL (0.55-1.02); Calcium 8.9 mg/dL (8.5-10.1); Chloride 103 mmol/L (98-107); Estimated GFR 129.27 (mL/min/1.73m2); Glucose 95 mg/dL (74-106); Lipase 27 U/L (16-77); Potassium 3.9 mmol/L (3.5-5.1); Sodium 136 mmol/L (136-145)
[2023-04-29 14:55] VITALS: BP 92/62; PULSE 80; TEMP 36.2; O2SAT 100
[2023-04-29] MEDS: Omnipaque 350 MG/ML 100 ML BTL IJ (16:00)
[2023-04-29] MEDS: Lactated Ringers 1,000 ML 1000 ML IV (16:00)
[2023-04-29] MEDS: Normal Saline - Diluent 50 ML VIAL IJ (16:10)
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
--- NOTE | 2023-04-29 16:11 | DI.CT_ITS ---
Exam(s) CT ABDOMEN PELVIS W EXAM: CT ABDOMEN PELVIS W CLINICAL HISTORY: RLQ abd Pain, Bloating R/O Appy. TECHNIQUE: Imaging Protocol: Axial computed tomography images with coronal and sagittal reformatted images were created and reviewed CONTRAST MATERIAL: Intravenous: Omnipaque-350 100cc Oral: None COMPARISON: No exams were available for comparison FINDINGS: VISUALIZED LUNG BASES: No nodules nor pleural effusions evident. ABDOMEN: LIVER: There are no focal hepatic lesions evident. No dilated intrahepatic ducts. GALLBLADDER/BILIARY: No obvious gallbladder pathology. CBD is not dilated. PANCREAS: No evidence of pancreatic mass nor dilatation of the pancreatic duct. SPLEEN: Spleen is not enlarged. No obvious intrasplenic lesions. Splenic and portal veins are paten t. ADRENALS: There are no significant adrenal masses. KIDNEYS:No cysts evident. No solid renal masses. No calculi nor hydronephrosis.. ABDOMINAL AORTA: Abdominal aorta is not enlarged. LYMPH NODES:There is no retroperitoneal nor paraaortic adenopathy. ABDOMINAL WALL: No evidence of significant anterior abdominal wall nor inguinal hernia. GI: There is no evidence of bowel obstruction, free air, nor abscess. PELVIS: GI: Mild haziness around the appendix. Appendix diameter is upper normal.No evidence of sigmoid dive rticulitis. LYMPH NODES: There is no intrapelvic nor inguinal adenopathy. REPRODUCTIVE: Uterus size age-appropriate. There is peripherally enhancing corpus luteal cyst in the right ovary measuring 2 by 1.6 cm.. Small amount of fluid noted in the cul-de-sac. Left ovary diff icult to differentiate from adjacent unopacified small bowel loops. URINARY BLADDER: No calculi nor obvious masses evident OSSEOUS: No fractures and no significant osseous lesions. IMPRESSION: 1. Corpus luteal cyst in the right ovary. Small-moderate amount of fluid in the cul-de-sac. 2. Mild streaking around the appendix but the appendix is not dilated. There is no appendicolith. RADIATION DOSE DELIVERED: Total DLP DATA REPOSITORY: All CT scans at this facility are submitted to the National Radiology Data Registry (NRDR) Dose Index Registry (DIR) with the [employer] [place] [employer] (ACR). RADIATION OPTIMIZATION: All CT scans at this facility use at least one of these dose optimization te chniques: automated exposure control; mA and/or kV adjustment per patient size (includes targeted exa ms where dose is matched to clinical indication); or iterative reconstruction.
[2023-04-29 16:32] VITALS: BP 114/63; PULSE 98; RESP 16; O2SAT 100
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
[2023-04-29 17:34] LABS: Lab Add On Test DONE
[2023-04-29 17:51] LABS: HCG Qual (Serum) Negative
[2023-04-29 19:28] VITALS: BP 110/75; PULSE 72; RESP 16; TEMP 37.1; O2SAT 97
[2023-04-29 19:33] VITALS: BP 110/75; PULSE 72; RESP 16; TEMP 37.1; O2SAT 97
[2023-04-29] MEDS: PIPERACILLIN/TAZO 3.375 GM in Normal Saline 50 ML IVPB (19:35)
[2023-04-29 20:55] LABS: Source Nasal/Nares
[2023-04-29] MEDS: Lactated Ringers 1,000 ML 75 ML IV (20:56)
--- NOTE | 2023-04-29 21:07 | NUR.NOTE ---
Nursing Note: Patient was given pip/christofer as ordered at approximately 1935. This medication was pulled from the pyxis by Chelo He RN at 1929. JENNIFER Herron witnessed administration of this medication by Chelo He RN. This medication was not documented as given prior to admission to med surg. This RN documented this medication as given based on information above.
[2023-04-29 21:43] LABS: COVID-19 PCR Negative (Negative)
[2023-04-29] MEDS: ACETAMINOPHEN 1,000 MG/100 ML BTL 400 MG IVPB (21:45)
[2023-04-30] MEDS: PIPERACILLIN/TAZO 3.375 GM in Normal Saline 50 ML IVPB ×2 (01:08→06:05)
[2023-04-30] MEDS: MORPHine 2 MG/ML SYR IVP ×2 (02:15→03:21)
[2023-04-30] MEDS: Ondansetron 4 MG/2 ML VIAL IVP (02:50)
[2023-04-30 02:53] VITALS: BP 100/67; PULSE 74; RESP 16; TEMP 36.7; O2SAT 99
[2023-04-30 07:14] LABS: Abs Immature Grans 0.03 10^3/uL (0.0-0.06); Absolute Basophil Count 0.06 10^3/uL (0.0-0.2); Absolute Eosinophil Count 0.21 10^3/uL (0.0-0.7); Absolute Lymphocyte Count 2.47 10^3/uL (1.2-3.4); Absolute Monocyte Count 0.93 10^3/uL (0.1-0.8); Absolute Neutrophil Count 4.66 10^3/uL (1.2-6.7); Basophils % 0.7; Eosinophils % 2.5; HCT 36.2 % (36.0-46.0); HGB 12.3 g/dL (11.2-15.7); Immature Grans % 0.4; Lymphocytes % 29.5; MCH 30.2 pg (27.0-33.0); MCV 89 fL (80-95); MPV 9.8 fL (8.0-11.0); Monocytes % 11.1; Neutrophils % 55.8; Platelet Count 321 10^3/uL (130-400); RBC 4.07 10^6/uL (3.93-5.22); RDW 12.1 % (11.7-14.6); RDW-SD 39.5 fL; WBC 8.36 10^3/uL (4.4-10.8)
[2023-04-30 07:54] VITALS: BP 94/60; PULSE 83; RESP 16; TEMP 36.7; O2SAT 99
[2023-04-30] MEDS: Ketorolac 30 MG/ML VIAL IVP (08:52)
[2023-04-30] MEDS: Simethicone 80 MG CHEW PO (08:53)
[2023-04-30] MEDS: Acetaminophen 500 MG TAB 1000 MG PO (08:53)
[2023-04-30] MEDS: Normal Saline Flush 10 ML SYR IVP (08:56)
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
--- NOTE | 2023-04-30 09:56 | W.PM.PROGNOT ---
Date of Service Date of service: 04/30/23 Time of Service: 09:56 Assessment and Plan Assessment and plan (1) Abdominal pain, RLQ: Status: Acute Assessment and plan: With the absence of fevers, and normalization of her white blood cell, this seems to be inconsistent with appendicitis, and more likely a result of the ruptured corpus luteal cyst. I will discharge her home today, and plan to follow-up this week. Subjective Subjective Interval history since last seen: Kathie continues to have right lower quadrant pain overnight, not much different than yesterday. She tolerated clear liquid diets passing flatus with no bowel movement. Exam GI Other: Abdomen is soft and nondistended. She has bowel sounds. Right lower quadrant remains tender, but no different than yesterday Objective Last Vital Signs Temp 98.1 F 04/30/23 07:54 Pulse 83 04/30/23 07:54 Resp 16 04/30/23 07:54 BP 94/60 L 04/30/23 07:54 Pulse Ox 99 04/30/23 07:54 Laboratory Results - last 24 hr 04/29/23 04/29/23 04/29/23 13:41 13:55 16:13 WBC 23.28 H RBC 4.83 Hgb 14.8 Hct 42.8 MCV 89 MCH 30.6 MCHC 34.6 RDW 12.0 Plt Count 370 MPV 9.5 Immature Gran % 0.5 Neutrophils % 83.3 Lymphocytes % 8.4 Monocytes % 6.4 Eosinophils % 0.9 Basophils % 0.5 Nucleated RBC % 0.0 Absolute Neutrophils 19.39 H Absolute Lymphocytes 1.96 Absolute Monocytes 1.49 H Absolute Eosinophils 0.21 Absolute Basophils 0.12 Sodium 136 Potassium 3.9 Chloride 103 Carbon Dioxide 26.3 Anion Gap 6.7 BUN 9 Creatinine 0.6 Est GFR (CKD-EPI 2020) 129.27 Glucose 95 Calcium 8.9 Total Bilirubin 0.5 AST 10 L ALT 14 Alkaline Phosphatase 74 Total Protein 8.0 Albumin 3.7 Lipase 27 Serum HCG, Qual Negative Urine Color Yellow Urine Clarity Clear Urine pH 6.5 Ur Specific [place] 1.025 Urine Protein Negative Urine Ketones Negative Urine Blood Trace-intact H Urine Nitrite Negative Urine Bilirubin Negative Urine Urobilinogen 0.2 Ur Leukocyte Esterase Negative Urine RBC 3-5 H Urine WBC 0-2 Ur Epithelial Cells Many Urine Crystals Negative Urine Bacteria Few Urine Casts Negative Urine Mucus Moderate Ur Culture Indicated? No/Sq. Contamination Urine Glucose Negative COVID-19 Source SARS-CoV-2 (PCR) Add-On Test Request DONE 04/29/23 04/30/23 20:40 06:15 WBC 8.36 RBC 4.07 Hgb 12.3 D Hct 36.2 MCV 89 MCH 30.2 MCHC 34.0 RDW 12.1 Plt Count 321 MPV 9.8 Immature Gran % 0.4 Neutrophils % 55.8 Lymphocytes % 29.5 Monocytes % 11.1 Eosinophils % 2.5 Basophils % 0.7 Nucleated RBC % 0.0 Absolute Neutrophils 4.66 Absolute Lymphocytes 2.47 Absolute Monocytes 0.93 H Absolute Eosinophils 0.21 Absolute Basophils 0.06 Sodium Potassium Chloride Carbon Dioxide Anion Gap BUN Creatinine Est GFR (CKD-EPI 2020) Glucose Calcium Total Bilirubin AST ALT Alkaline Phosphatase Total Protein Albumin Lipase Serum HCG, Qual Urine Color Urine Clarity Urine pH Ur Specific [place] Urine Protein Urine Ketones Urine Blood Urine Nitrite Urine Bilirubin Urine Urobilinogen Ur Leukocyte Esterase Urine RBC Urine WBC Ur Epithelial Cells Urine Crystals Urine Bacteria Urine Casts Urine Mucus Ur Culture Indicated? Urine Glucose COVID-19 Source Nasal/Nares SARS-CoV-2 (PCR) Negative Add-On Test Request Time Spent with Patient Time Spent with Patient: <25 minutes Time was spent: preparing to see the patient(eg.review tests), indepentently interpreting results and counseling the patient
[2023-04-30] MEDS: traMADol 50 MG TAB PO (12:21)
== END 2023-04-30 12:30 | disposition home or self-care (01) ==
LOC: ER 16:26 → MS 19:24
PROVIDERS: Registered Nurse Emergency; Admitting Provider Surgery; Emergency Provider Physician Assistant; PCP Nurse Practitioner Family; Visit Provider Surgery
DX: R10.31 Right lower quadrant pain (principal); D72.829 Elevated white blood cell count, unspecified; R93.89 Abnormal findings on diagnostic imaging of other specified body structures; F43.10 Post-traumatic stress disorder, unspecified; F41.1 Generalized anxiety disorder; R63.5 Abnormal weight gain; Z87.828 Personal history of other (healed) physical injury and trauma; F32.A Depression, unspecified; Z87.440 Personal history of urinary (tract) infections; F12.11 Cannabis abuse, in remission; G43.909 Migraine, unspecified, not intractable, without status migrainosus
CPT/HCPCS: 36415; 80053; 81025; 83690; 87635; 96360; 96365; 96375; 96376; 99285; 74177; 81003; 81015; 84703; 85025; G0378; J0131; J1885; J2270; J2405; J2543; J3490

== ENCOUNTER 2023-05-03 02:57 | Outpatient (CLI) | payer SELFPAY ==
[2023-05-05 12:22] LABS: TB Interpretation Negative (Negative); TB1 Ag minus Nil 0.01 IU/ml
== END 2023-05-03 02:58 | disposition home or self-care (01) ==
PROVIDERS: PCP Nurse Practitioner Family; Visit Provider Nurse Practitioner Family
DX: Z02.1 Encounter for pre-employment examination (principal)
CPT/HCPCS: 36415; 86480

== ENCOUNTER 2023-08-10 11:41 | Emergency (ER) | payer MEDICAID, SELFPAY ==
--- NOTE | 2023-08-10 11:30 | RT.EKG_ITS ---
APPROVED REPORT Exam: Resting ECG Reason for Exam: chest pain Patient Location: E HR:81 bpm ECG Measurements Heart Rate 81 AXIS ID 144 P 13 QRSd 85 QRS 70 QT 378 T 54 QTc 439 Conclusion Sinus rhythm...normal P axis, V-rate 60- 99 Physician: no stemi
[2023-08-10 11:44] VITALS: BP 111/79; PULSE 76; RESP 17; TEMP 36.5; O2SAT 100
[2023-08-10 11:59] VITALS: RESP 16
--- NOTE | 2023-08-10 12:45 | DI.RAD_ITS ---
Exam(s) XR RIBS LT W PA LAT CHEST EXAM: XR RIBS LT W PA LAT CHEST CLINICAL HISTORY: left rib pain after fall TECHNIQUE: 2D digital imaging was performed. Five images are obtained. COMPARISON: CR LEFT RIBS TO INCLUDE CXR from 09/10/2011 FINDINGS: MEDIASTINUM: Normal. HEART: Normal. PULMONARY VASCULATURE: Normal. LUNGS: Clear. PLEURAL SPACE: No pleural effusion or pneumothorax. BONE:Within normal limits for the patient's age. LEFT RIBS: Normal. OTHER FINDINGS:Normal. IMPRESSION: 1. No acute pulmonary findings. 2. Unremarkable left ribs. DATA REPOSITORY: RADIATION DOSE DELIVERED:
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
[2023-08-10] MEDS: Acetaminophen 500 MG TAB 1000 MG PO (13:31)
[2023-08-10] MEDS: Ibuprofen 800 MG TAB PO (13:32)
[2023-08-10] MEDS: Lidocaine 5% Patch 2 PATCH TP (13:32)
== END 2023-08-10 13:28 | disposition home or self-care (01) ==
PROVIDERS: Emergency Provider Student in an Organized Health Care Education/Training Program; PCP Nurse Practitioner Family
DX: S23.41XA Sprain of ribs, initial encounter (principal); X19.XXXA Contact with other heat and hot substances, initial encounter
CPT/HCPCS: 93005; 99284; 71046; 71100; 93010; 99283

== ENCOUNTER → 2023-09-15 02:12 | Outpatient (CLI) | payer MEDICAID, SELFPAY ==
--- NOTE | 2023-09-15 08:00 | DI.US_ITS ---
Exam(s) US BREAST LT COMPLETE EXAM: US BREAST LT COMPLETE CLINICAL HISTORY: s/p trauma left breast 1 mo ago, persisting pain,n64.4. TECHNIQUE: Complete ultrasound of the left breast was performed including all 4 quadrants, the retro areolar region, and the ipsilateral axilla. COMPARISON: None. This is a 23-year-old female who fell and injured her left breast and sustained s ubjacent rib fractures a few months ago. She had discoloration of the skin of the breast which is no w resolved and she feels that the lump which was present at that location has now resolved. No significant immediate family history. FINDINGS: There is no skin discoloration at this time There is no evidence of solid or significant cystic lesions in all 4 quadrants of the left breast. In the area of clinical concern (which is 3-4-5 o'clock positions) there are no focal ultrasound find ings. Scanning of the ipsilateral left axilla is negative for adenopathy. IMPRESSION: Negative complete left breast ultrasound. I do not feel that she requires mammography. Appropriate follow-up is repeat ultrasound if symptoms or lump returns. BI-RADS Category 2 - Benign Findings Breast Density - Category C - Heterogeneously dense Breast density Category C or D implies that the patient has dense breast tissue. Dense breast tissue can make it harder to find cancer on a mammogram. Dense breast tissue is also associated with an incr eased risk of breast cancer. This information about the result of the mammogram report was provided to the patient to raise their awareness. Use this report when you speak with the patient about their risks for breast cancer, which includes their family history. At that time, you may recommend additional screening tests (Ultrasoun d or MRI) as these tests may add significant information. A negative radiographic report should not delay biopsy if a dominant or clinically suspicious mass is present. Up to ten percent of cancers are not identified on mammography. A negative report may reinforce clinical impression. Adenosis and dense breasts may obscure an underlying neoplasm. False positive reports average 6 to 10%. Patient will receive a letter notifying them of these results.
== END ==
PROVIDERS: PCP Nurse Practitioner Family; Visit Provider Advanced Practice Midwife
DX: N64.4 Mastodynia (principal)
CPT/HCPCS: 76642

== ENCOUNTER 2023-11-14 13:14 | Outpatient (CLI) | payer MEDICAID, SELFPAY ==
[2023-11-15 18:09] LABS: Hepatitis Be Antigen Negative (Negative)
[2023-11-16 12:02] LABS: TB Interpretation Negative (Negative)
== END 2023-11-14 13:15 | disposition home or self-care (01) ==
LOC: LBO 13:14
PROVIDERS: PCP Nurse Practitioner Family; Visit Provider Nurse Practitioner Family
DX: Z23 Encounter for immunization (principal); Z11.1 Encounter for screening for respiratory tuberculosis
CPT/HCPCS: 36415; 86480; 87350

== ENCOUNTER 2023-11-23 22:25 | Emergency (ER) | payer MEDICAID, SELFPAY ==
[2023-11-23 22:29] VITALS: BP 117/72; PULSE 77; RESP 16; TEMP 36; O2SAT 99
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
[2023-11-23] MEDS: valACYclovir 1,000 MG TAB 2000 MG PO (22:45)
== END 2023-11-23 22:50 | disposition home or self-care (01) ==
PROVIDERS: Emergency Provider Registered Nurse Emergency; PCP Nurse Practitioner Family
DX: B00.1 Herpesviral vesicular dermatitis (principal)
CPT/HCPCS: 99283

== ENCOUNTER 2023-11-24 05:15 | Outpatient (CLI) | payer MEDICAID, SELFPAY ==
[2023-11-24 15:44] LABS: HCG Quant, Pregnancy 1 mIU/mL (1-3); TSH (W/Ref FT4) 2.18 uIU/mL (0.36-3.74)
[2023-11-24 20:57] LABS: HBs Antibody, Quant 23.2 mIU/mL (See Note); Hepatitis B Surface Ab Positive (See Note)
== END 2023-11-24 05:16 | disposition home or self-care (01) ==
LOC: LBO 05:15
PROVIDERS: PCP Nurse Practitioner Family; Visit Provider Advanced Practice Midwife
DX: N92.6 Irregular menstruation, unspecified (principal)
CPT/HCPCS: 36415; 86706; 84443; 84702

== ENCOUNTER 2023-12-05 15:57 | Observation (INO) | payer MEDICAID, SELFPAY ==
[2023-12-05] VITALS (10 sets, daily range): BP systolic 105–129; BP diastolic 48–70; PULSE 86–100; RESP 15–24; TEMP 36.4–37; O2SAT 97–100; BMI 25.8
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
[2023-12-05 18:06] LABS: Bilirubin Negative (Negative); Blood Trace-intact (Negative); Clarity Cloudy (Clear); Glucose Negative (Negative); Ketones Trace mg/dL (Negative); Leukocyte Esterase Negative (Negative); Nitrite Positive (Negative); Specific Gravity >= 1.030 (1.005-1.025)
[2023-12-05 18:17] LABS: Bacteria Many HPF (Negative); C & S Indicated? No/Sq. Contamination; Crystals Negative HPF (Negative); Epithelial Cells Many HPF (Negative); Mucus Trace (Negative); Other Cells Rare Transitional (Negative)
[2023-12-05] MEDS: ACETAMINOPHEN 1,000 MG/100 ML BTL 400 MG IVPB (18:20)
[2023-12-05] MEDS: Ketorolac 15 MG/ML VIAL IVP (18:20)
[2023-12-05 18:40] LABS: Lactate 1.1 mmol/L (0.6-1.4)
[2023-12-05 18:43] LABS: Abs Immature Grans 0.07 10^3/uL (0.0-0.06); Absolute Lymphocyte Count 2.07 10^3/uL (1.2-3.4); Basophils % 0.4 %; Eosinophils % 1.7 %; HCT 40.8 % (36.0-46.0); HGB 14.1 g/dL (11.2-15.7); Immature Grans % 0.3 %; Lymphocytes % 9.9 %; MCH 31.3 pg (27.0-33.0); MCHC 34.6 % (32.0-36.0); MCV 91 fL (80-95); MPV 9.9 fL (8.0-11.0); Monocytes % 5.6 %; Neutrophils % 82.1 %; Platelet Count 271 10^3/uL (130-400); RBC 4.51 10^6/uL (3.93-5.22); RDW 12.1 % (11.7-14.6); RDW-SD 39.8 fL; WBC 20.86 10^3/uL (4.4-10.8)
[2023-12-05 18:44] LABS: Absolute Basophil Count 0.08 10^3/uL (0.0-0.2); Absolute Eosinophil Count 0.35 10^3/uL (0.0-0.7); Absolute Monocyte Count 1.17 10^3/uL (0.1-0.8); Absolute Neutrophil Count 17.13 10^3/uL (1.2-6.7)
[2023-12-05] MEDS: Omnipaque 350 MG/ML 100 ML BTL IJ (18:45)
[2023-12-05] MEDS: Normal Saline Flush 10 ML SYR IVP (18:46)
[2023-12-05] MEDS: Normal Saline - Diluent 50 ML VIAL IJ (18:46)
--- NOTE | 2023-12-05 18:58 | DI.CT_ITS ---
Exam(s) CT ABDOMEN PELVIS W EXAM: CT ABDOMEN PELVIS W CLINICAL HISTORY: RLQ tenderness, concern appy vs renal colic TECHNIQUE: Imaging Protocol: Axial computed tomography images with coronal and sagittal reformatted images were created and reviewed. CONTRAST MATERIAL: Intravenous: Omnipaque 350 Contrast volume:100 mL Oral: No COMPARISON: CT CT ABDOMEN PELVIS W from 04/29/2023 FINDINGS: ABDOMEN: Lung Bases: Normal where visualized. Liver: Normal density. No measurable mass. Portal, Superior Mesenteric, and Splenic Veins: Unremarkable. Gallbladder and Biliary Tract: No radiodense calculus or dilation. Pancreas: Normal density, no abnormal calcifications or inflammatory process. Spleen: Normal. Adrenals: No masses seen. Kidneys: Normal size, contour and axis. No radiodense stones or obstructive uropathy. No masses seen. Abdominal Aorta: Abdominal portion non-dilated. Bowel: No obstruction or bowel wall thickening. The appendix measures 7 mm in diameter. There is an enhancing wall. No appendicoliths is seen. No Carmen appendiceal abscess. The stomach is incompletel y distended limiting evaluation. Peritoneal Cavity: No ascites, collection or mesenteric inflammatory response. No free air. Lymph Nodes: Within normal limits. Bones: Within normal limits for the patient's age. Soft Tissues: Unremarkable. PELVIS: Bladder: Symmetric distention, no gross wall thickening. Reproductive Organs: There is a 1.8 cm corpus luteal cyst on the right ovary. There is mild prominen ce of the parametrial vessels particularly on the left which may represent pelvic congestion syndrome . There is a trace amount of free fluid in the cul-de-sac which is likely physiologic. Lymph Nodes: Within normal limits. Bones: Within normal limits for the patient's age. IMPRESSION: 1. The appendix measures 7 mm in diameter with an enhancing wall. This may represent early acute niko endicitis. No abscess or free air. 2. 1.8 cm right ovarian corpus luteal cyst. RADIATION DOSE DELIVERED: 1,007.64mGy.cm Total DLP DATA REPOSITORY: All CT scans at this facility are submitted to the National Radiology Data Registry (NRDR) Dose Index Registry (DIR) with the [employer] (ACR). RADIATION OPTIMIZATION: All CT scans at this facility use at least one of these dose optimization te chniques: automated exposure control; mA and/or kV adjustment per patient size (includes targeted exa ms where dose is matched to clinical indication); or iterative reconstruction.
[2023-12-05 18:59] LABS: ALT 21 U/L (14-59); AST 11 U/L (15-37); Albumin 3.9 g/dL (3.4-5.0); Alkaline Phosphatase 70 U/L (46-116); Anion Gap 9.3 mmol/L (3-11); BUN 11 mg/dL (7-18); Bilirubin, Total 0.5 mg/dL (0.2-1.0); C-Reactive Protein < 0.50 mg/dL (<or=0.5); CO2 25.7 mmol/L (21.0-32.0); CREATININE 0.7 mg/dL (0.55-1.02); Calcium 8.5 mg/dL (8.5-10.1); Chloride 103 mmol/L (98-107); Estimated GFR 123.78 (mL/min/1.73m2); Glucose 92 mg/dL (74-106); Lipase 27 U/L (16-77); Potassium 3.8 mmol/L (3.5-5.1); Sodium 138 mmol/L (136-145); Total Protein 7.6 g/dL (6.4-8.2)
[2023-12-05] MEDS: PIPERACILLIN/TAZO 4.5 GM in Normal Saline 100 ML IVPB (19:00)
[2023-12-05] MEDS: Normal Saline 1,000 ML 1000 ML IV (19:00)
[2023-12-05 19:16] LABS: Procalcitonin < 0.1 ng/mL
--- NOTE | 2023-12-05 19:51 | DI.VRAD_ITS ---
Addendum created by En Rodriguez MD on 12/05/2023 7:52:27 PM EDT: THIS REPORT CONTAINS FINDINGS THAT MAY BE CRITICAL TO PATIENT CARE. The findings were verbally communicated via telephone conference with Dr. Blane Bañuelos at 7:52 PM EDT on 12/05/2023. The findings were acknowledged and understood. Initial report created on 12/05/2023 7:50:22 PM EDT: PROCEDURE INFORMATION: Exam: CT Abdomen And Pelvis With Contrast Exam date and time: 12/05/2023 6:49 PM Age: 23 years old Clinical indication: Abdominal pain; Localized; Right lower quadrant (rlq); Patient HX: Rlq tenderness, concern appy vs renal colic TECHNIQUE: Imaging protocol: Computed tomography of the abdomen and pelvis with contrast. Radiation optimization: All CT scans at this facility use at least one of these dose optimization techniques: automated exposure control; mA and/or kV adjustment per patient size (includes targeted exams where dose is matched to clinical indication); or iterative reconstruction. Contrast material: [id number]; Contrast volume: 100 ml; Contrast route: INTRAVENOUS (IV); COMPARISON: CT ABDOMEN PELVIS W 04/29/2023 4:12 PM FINDINGS: Liver: Normal. No mass. Gallbladder and bile ducts: Normal. No calcified stones. No ductal dilation. Pancreas: Normal. No ductal dilation. Spleen: Normal. No splenomegaly. Adrenal glands: Normal. No mass. Kidneys and ureters: Normal. No hydronephrosis. Stomach and bowel: Unremarkable. No obstruction. No mucosal thickening. Appendix: The appendix measures top-normal to mildly dilated in caliber at 7 mm. There is mild appendiceal wall thickening and enhancement with mild surrounding fatty stranding suggesting acute appendicitis. No evidence of appendiceal perforation or abscess. Intraperitoneal space: Unremarkable. No free air. No significant fluid collection. Vasculature: Unremarkable. No abdominal aortic aneurysm. Lymph nodes: Unremarkable. No enlarged lymph nodes. Urinary bladder: Unremarkable as visualized. Reproductive: Unremarkable as visualized. Bones/joints: Unremarkable. No acute fracture. Soft tissues: Unremarkable. IMPRESSION: Findings suggesting early/mild uncomplicated acute appendicitis. Dictated and Authenticated by: En Rodriguez MD. Ordering:GODFREY Cordova MD
[2023-12-05] MEDS: LORazepam 2 MG/ML VIAL 0.5 MG IVP (20:33)
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
[2023-12-05] MEDS: Lactated Ringers 1,000 ML 30 ML IV (21:50)
[2023-12-05] MEDS: Bupivacaine 0.25% Pres-Free W/EPI 30 ML VIAL (22:18)
--- NOTE | 2023-12-05 22:28 | APP_PTH ---
PATIENT: Kathie Ureña LOC: [facility]#:[id number] AGE/SX: 23/F ROOM: RE12/05/[address]: Tashi Bright MD : 2000 BED: A DIS: 12/06/2023 SPEC #: [id number] RECD: 12/06/23 13:05 STATUS: PONCHO REQ #: [id number] MARIANNA: 12/05/23 22:[address]: Tashi Bright DEPT: Surgical Specimen RECD BY: Julia Quinonez ENTERED: 12/06/23 13:05 SP TYPE: Appendix OTHR DR: RAEGAN RODGERS NP Tissues: 1 - APPENDIX NOT INCIDENTAL Procedures: GROSS AND MICRO LEVEL 3 Comments: [id number]
--- NOTE | 2023-12-05 22:47 | ROE_ITS ---
Date of service: 12/05/23 Time of Service: 22:47 Operative Note Operative Note DATE OF PROCEDURE: 12/05/23 PRE-OP DIAGNOSIS: Acute appendicitis POST-OP DIAGNOSIS: same PROCEDURE: Laparoscopic appendectomy SURGEON: Tashi Bright COUNTER CLERK [employer]: Dipesh Grissom ANESTHESIA TYPE: Local By Surgeon and General LMA/ETT Refer to Anesthesia Record ESTIMATED BLOOD LOSS: 25 PATHOLOGY: other (Appendix) COMPLICATIONS: None Patient was transported to: PACU Patient's condition: stable Indications: Kathie is a 23-year-old woman who comes to the emergency department with just about [address] scan supported the diagnosis of acute appendicitis. Findings: Mildly inflamed midportion of the appendix Procedure Description: After the induction of general anesthesia, I prepped and draped the anterior abdominal wall in the usual fashion. Next, I made an umbilical incision. I opened the fascia under direct vision. Using Vicryl stitches, I then affixed a 12 mm operating port to the umbilical fascia. I began insufflated the peritoneal cavity. Next, I inserted a 5 mm scope and examine the underlying tissue. There was no evidence of any trauma from the insertion. Next, with the assistance of the laparoscope, I placed 5 mm port in the left lower quadrant and suprapubic position. I then moved the scope into the left lower quadrant, and positioned the patient with some Trendelenburg and left side down. I started by examining the area of the right lower quadrant. I reflected the greater omentum cephalad and identified the terminal ileum. I traced this to the insertion at the cecum and then identified the base of the appendix at the confluence of the cecal tenia. Next, I mobilized the appendix which did appear acutely inflamed. I then used sequential firings of the LigaSure to divide the mesoappendix. Once this was complete I divided the appendix from the cecum at its base with a VICKI stapler. I placed the appendix into an Endo Catch bag and removed through the umbilical port site. I examined the surgical field. The staple line looked fine. There was no contamination or spillage and the surgical field was hemostatic. I then removed the port sites under the vision the laparoscope and closed the umbilical fascia with 0 Vicryl stitches. Finally, irrigated the skin and approximated the dermis with subcuticular absorbable suture.
--- NOTE | 2023-12-05 23:27 | W.ANESPOSTOP ---
Postoperative Evaluation Date, Time and Location Date Performed: 12/05/23 Time Performed: 23:23 Patient Location: PACU Vital Signs Most Recent Imported Vital Signs: Most Recent Vital Signs Temp Pulse Resp BP Pulse Ox 36.7 C 96 H 18 110/61 98 12/05/23 23:15 12/05/23 23:15 12/05/23 23:15 12/05/23 23:15 12/05/23 23:15 Pain Score Most Recent Pain Score: Most Recent Pain Score Pain Level 10 12/05/23 21:49 Assessment Mental Status: Arousable with meaningful communication Airway and Respiratory Function: Patent airway with normal (patient baseline) respiratory exam Cardiovascular Function: Hemodynamically Stable Hydration Status: Adequately Hydrated Nausea & Vomiting: No Nausea or Vomiting Pain: Pain is tolerable per patient Peripheral Nerve Block: Patient did not receive a nerve block
[2023-12-06] VITALS (12 sets, daily range): BP systolic 95–109; BP diastolic 54–80; PULSE 72–93; RESP 16–20; TEMP 36.5–37; O2SAT 96–98
[2023-12-06] MEDS: HYDROmorphone 2 MG/ML SYR 1 MG IVP (00:24)
[2023-12-06] MEDS: Acetaminophen 500 MG TAB 1000 MG PO ×2 (00:24→06:44)
[2023-12-06] MEDS: traMADol 50 MG TAB PO ×2 (02:20→08:34)
[2023-12-06] MEDS: Cyclobenzaprine 10 MG TAB PO (08:34)
[2023-12-06] MEDS: Psyllium PKT 1 EACH PO (08:34)
[2023-12-06] MEDS: Normal Saline Flush 10 ML SYR IVP (08:36)
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
--- NOTE | 2023-12-06 10:10 | PGE_ITS ---
Date of Service Date of service: 12/06/23 Time of Service: 10:10 Assessment and Plan Assessment and plan (1) Abdominal pain, RLQ: Assessment and plan: POD #1 s/p laparoscopic Appendectomy with Dr. Bright Tolerating a regular diet Pain is fairly well controlled Activity as tolerated Encouraged ambulation Miralax and will order ducolax prior to d/c Follow up in the surgical office in 2 weeks for post-op visit. Subjective Subjective Interval history since last seen: Patient reports she is feeling very sore this morning. She is tolerating liquids, however as not eaten much solid food yet. She describes feeling like she may need to have a BM, however she is concerned about having to push. Exam Const General: cooperative, healthy appearing and comfortable Orientation: alert and oriented x3 Resp Effort & Inspection: normal respiratory effort, no audible wheezes and cough GI Inspection: normal to inspection Palpation: soft and tender (throughout ) Objective Last Vital Signs Temp 36.8 C 12/06/23 08:19 Pulse 84 12/06/23 08:19 Resp 20 12/06/23 08:19 BP 103/62 12/06/23 08:19 Pulse Ox 97 12/06/23 08:19 Laboratory Results - last 24 hr 12/05/23 12/05/23 17:48 18:20 WBC 20.86 H RBC 4.51 Hgb 14.1 Hct 40.8 MCV 91 MCH 31.3 MCHC 34.6 RDW 12.1 Plt Count 271 MPV 9.9 Immature Gran % 0.3 Neutrophils % 82.1 Lymphocytes % 9.9 Monocytes % 5.6 Eosinophils % 1.7 Basophils % 0.4 Nucleated RBC % 0.0 Absolute Neutrophils 17.13 H Absolute Lymphocytes 2.07 Absolute Monocytes 1.17 H Absolute Eosinophils 0.35 Absolute Basophils 0.08 VBG Lactate 1.1 Sodium 138 Potassium 3.8 Chloride 103 Carbon Dioxide 25.7 Anion Gap 9.3 BUN 11 Creatinine 0.7 Est GFR (CKD-EPI 2020) 123.78 Glucose 92 Calcium 8.5 Total Bilirubin 0.5 AST 11 L ALT 21 Alkaline Phosphatase 70 C-Reactive Protein < 0.50 Total Protein 7.6 Albumin 3.9 Lipase 27 Procalcitonin < 0.1 Urine Color Yellow Urine Clarity Cloudy Urine pH 7.0 Ur Specific [place] >= 1.030 H Urine Protein 100 H Urine Ketones Trace H Urine Blood Trace-intact H Urine Nitrite Positive H Urine Bilirubin Negative Urine Urobilinogen 1.0 H Ur Leukocyte Esterase Negative Urine RBC 3-5 H Urine WBC 3-5 Ur Epithelial Cells Many Urine Crystals Negative Urine Bacteria Many Urine Mucus Trace Urine Other Rare Transitional Ur Culture Indicated? No/Sq. Contamination Urine Glucose Negative Time Spent with Patient Time Spent with Patient: <25 minutes Time was spent: preparing to see the patient(eg.review tests), ordering medications,tests, procedures and counseling the patient
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
--- NOTE | 2023-12-06 11:54 | PDOC.CMDIS ---
Date of service: 12/06/23 Time of Service: 11:54 LACE Index Scoring Tool Questions: Length of Stay (in days): 1 Was the patient admitted via the E.D.?: Yes E.D. Visits: 3 Answers: Total Score: 7 Risk of Readmission: Low Risk Care Management Discharge Plan Reason for Hospitalization: RLQ abdominal pain, laparoscopic Appendectomy Discharge Plan: Kathie is discharged home via private vehicle with family with a plan to Follow up in the surgical office in 2 weeks for post-op visit. Kathie will follow up with community providers and her discharge plan of care as instructed. No new services are ordered prior to discharge. Patient/Family Education Needs: Review discharge instructions, limitations, medications and plan to follow up with community providers. Discuss ask me three. SDOH Health Related Social Needs: No Data to Display
--- NOTE | 2023-12-06 13:39 | NUR.NOTE ---
Nursing Note: pt DC home with family via private vehicle, has all personal belongigns and has no further questions regarding DC instructions, ambulated to main entrance with staff
== END 2023-12-06 13:00 | disposition home or self-care (01) ==
LOC: ER 21:44 → SUR 21:45 → MS 23:21
PROVIDERS: Admitting Provider Surgery; Emergency Provider Physician Assistant; PCP Nurse Practitioner Family; Visit Provider Surgery
PROC: 0DTJ4ZZ Resection of Appendix, Percutaneous Endoscopic Approach (ICD-10-PCS; CPT 44970; principal; 2023-12-05 21:15)
DX: K35.30 Acute appendicitis with localized peritonitis, without perforation or gangrene (principal); F41.1 Generalized anxiety disorder; G43.909 Migraine, unspecified, not intractable, without status migrainosus; F12.91 Cannabis use, unspecified, in remission
CPT/HCPCS: 44970; 36410; 80053; 81025; 83690; 84145; 87040; 96361; 96365; 96375; 99285; 74177; 81003; 81015; 83605; 85025; 86140; 88304; G0378; J0131; J1100; J1170; J1885; J2001; J2060; J2405; J2543; J2704; J3010; J3475; J3490

== ENCOUNTER 2023-12-06 22:21 | Emergency (ER) | payer MEDICAID, SELFPAY ==
[2023-12-06 22:32] VITALS: BP 117/68; PULSE 73; RESP 18; TEMP 37.1
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
[2023-12-06] MEDS: Ketorolac 30 MG/ML VIAL IM (23:30)
== END 2023-12-06 23:33 | disposition home or self-care (01) ==
PROVIDERS: Emergency Provider Emergency Medicine; PCP Nurse Practitioner Family
DX: G89.18 Other acute postprocedural pain (principal); R10.10 Upper abdominal pain, unspecified
CPT/HCPCS: 96372; 99284; 99283; J1885

== ENCOUNTER 2023-12-11 23:10 | Emergency (ER) | payer MEDICAID, SELFPAY ==
[2023-12-11 23:15] VITALS: BP 127/82; PULSE 84; RESP 15; TEMP 36.6; O2SAT 100
--- NOTE | 2023-12-11 23:15 | DI.CT_ITS ---
Exam(s) CT ABDOMEN PELVIS W EXAM: CT ABDOMEN PELVIS W CLINICAL HISTORY: post op bloating, umbilical pain (recent appe) TECHNIQUE: Imaging Protocol: Axial computed tomography images with coronal and sagittal reformatted images were created and reviewed. CONTRAST MATERIAL: Intravenous: Omnipaque 350 Contrast volume:100 mL Oral: No COMPARISON: CT CT ABDOMEN PELVIS W from 04/29/[address] ABDOMEN PELVIS W from 12/05/2023 FINDINGS: ABDOMEN: Lung Bases: Normal where visualized. Liver: Normal density. No measurable mass. Portal, Superior Mesenteric, and Splenic Veins: Unremarkable. Gallbladder and Biliary Tract: No radiodense calculus or dilation. Pancreas: Normal density, no abnormal calcifications or inflammatory process. Spleen: Normal. Adrenals: No masses seen. Kidneys: Normal size, contour and axis. No radiodense stones or obstructive uropathy. No masses seen. Abdominal Aorta: Abdominal portion non-dilated. Bowel: No obstruction or bowel wall thickening. There are surgical clips seen in the cecum base sugge sting prior appendectomy. There is a moderate amount of stool in the colon which may reflect constip ation. Peritoneal Cavity: There is a trace amount of free fluid in the pelvis. There is a single focus of i ntra-abdominal air in the upper abdomen anteriorly consistent with the patient's recent surgery. Lymph Nodes: Within normal limits. Bones: Within normal limits for the patient's age. Soft Tissues: Unremarkable. PELVIS: Bladder: There is tiny amount of air in the anterior aspect of the urinary bladder which may reflect recent catheterization. The urinary bladder is otherwise grossly unremarkable. Reproductive Organs: Unremarkable as visualized. There is a 1.4 cm right corpus luteal cyst. Lymph Nodes: Within normal limits. Bones: Within normal limits for the patient's age. IMPRESSION: 1. The patient is status post recent appendectomy. There is a small focus of air seen in the upper a bdomen anteriorly. There is also small focus of air seen in the anterior portion of the urinary blad connie. This would be in keeping with the patient's recent surgery. No abdominal abscess is seen. 2. Moderate amount of stool in the colon which may reflect constipation. RADIATION DOSE DELIVERED: 979.26mGy.cm Total DLP DATA REPOSITORY: All CT scans at this facility are submitted to the National Radiology Data Registry (NRDR) Dose Index Registry (DIR) with the [employer] (ACR). RADIATION OPTIMIZATION: All CT scans at this facility use at least one of these dose optimization te chniques: automated exposure control; mA and/or kV adjustment per patient size (includes targeted exa ms where dose is matched to clinical indication); or iterative reconstruction.
[2023-12-11 23:17] VITALS: BP 127/82; PULSE 84; RESP 15; TEMP 36.6; O2SAT 100
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
[2023-12-11 23:46] LABS: Abs Immature Grans 0.03 10^3/uL (0.0-0.06); Absolute Basophil Count 0.07 10^3/uL (0.0-0.2); Absolute Eosinophil Count 0.33 10^3/uL (0.0-0.7); Absolute Lymphocyte Count 3.65 10^3/uL (1.2-3.4); Absolute Monocyte Count 0.89 10^3/uL (0.1-0.8); Absolute Neutrophil Count 6.46 10^3/uL (1.2-6.7); Basophils % 0.6 %; Eosinophils % 2.9 %; HCT 44.1 % (36.0-46.0); HGB 15.3 g/dL (11.2-15.7); Immature Grans % 0.3 %; Lactate 1.3 mmol/L (0.6-1.4); Lymphocytes % 31.9 %; MCH 31.1 pg (27.0-33.0); MCHC 34.7 % (32.0-36.0); MCV 90 fL (80-95); MPV 9.4 fL (8.0-11.0); Monocytes % 7.8 %; Neutrophils % 56.5 %; Platelet Count 352 10^3/uL (130-400); RBC 4.92 10^6/uL (3.93-5.22); RDW-SD 38.9 fL; WBC 11.43 10^3/uL (4.4-10.8)
[2023-12-11] MEDS: ACETAMINOPHEN 1,000 MG/100 ML BTL 400 MG IVPB (23:50)
[2023-12-11] MEDS: Lactated Ringers 1,000 ML 1000 ML IV (23:51)
[2023-12-11] MEDS: Ketorolac 15 MG/ML VIAL IVP (23:51)
[2023-12-11] MEDS: Ondansetron 4 MG/2 ML VIAL IVP (23:51)
[2023-12-11] MEDS: Omnipaque 350 MG/ML 100 ML BTL IJ (23:56)
[2023-12-11] MEDS: Normal Saline Flush 10 ML SYR IVP (23:57)
[2023-12-11] MEDS: Normal Saline - Diluent 50 ML VIAL IJ (23:58)
[2023-12-12 00:02] LABS: ALT 26 U/L (14-59); AST 12 U/L (15-37); Albumin 4.3 g/dL (3.4-5.0); Alkaline Phosphatase 81 U/L (46-116); Anion Gap 8.8 mmol/L (3-11); BUN 11 mg/dL (7-18); Bilirubin, Total 0.5 mg/dL (0.2-1.0); CO2 27.2 mmol/L (21.0-32.0); CREATININE 0.8 mg/dL (0.55-1.02); Calcium 9.3 mg/dL (8.5-10.1); Chloride 104 mmol/L (98-107); Estimated GFR 105.45 (mL/min/1.73m2); Glucose 91 mg/dL (74-106); Lipase 31 U/L (16-77); Potassium 3.9 mmol/L (3.5-5.1); Sodium 140 mmol/L (136-145); Total Protein 8.7 g/dL (6.4-8.2)
[2023-12-12 00:32] LABS: Bilirubin Negative (Negative); Blood Moderate (Negative); Clarity Sl Cloudy (Clear); Glucose Negative (Negative); Ketones Negative (Negative); Leukocyte Esterase Trace (Negative); Nitrite Negative (Negative); Specific Gravity 1.015 (1.005-1.025); Urobilinogen 0.2 mg/dL (Up to 0.2)
[2023-12-12 00:39] LABS: Bacteria Many HPF (Negative); C & S Indicated? No/Sq. Contamination; Crystals Few Amorphous HPF (Negative); Epithelial Cells Moderate HPF (Negative); Mucus Negative (Negative)
--- NOTE | 2023-12-12 00:49 | DI.VRAD_ITS ---
PROCEDURE INFORMATION: Exam: CT Abdomen And Pelvis With Contrast Exam date and time: 12/12/2023 12:12 AM Age: 23 years old Clinical indication: Abdominal pain; Periumbilical; Prior surgery; Surgery date: 3-7 days post-operative; Surgery type: Appendectomy; Patient HX: Post op bloating and abd pain TECHNIQUE: Imaging protocol: Computed tomography of the abdomen and pelvis with contrast. Radiation optimization: All CT scans at this facility use at least one of these dose optimization techniques: automated exposure control; mA and/or kV adjustment per patient size (includes targeted exams where dose is matched to clinical indication); or iterative reconstruction. Contrast material: OMNIPAQUE 350; Contrast volume: 100 ml; Contrast route: INTRAVENOUS (IV); COMPARISON: CT ABDOMEN PELVIS W 12/05/2023 6:49 PM FINDINGS: Lungs: Lung bases clear. Liver: Normal appearing liver. Gallbladder and bile ducts: Normal appearing gallbladder. No calcified gallstones. No biliary dilatation. Pancreas: Normal appearing pancreas. Spleen: Normal appearing spleen. Adrenal glands: Adrenal glands partially obscured but grossly unremarkable, as seen. Kidneys and ureters: Normal appearing kidneys. No hydronephrosis. Stomach and bowel: No oral contrast. Stomach partially distended with ingested material. No small bowel dilatation to suggest obstruction. Moderate retained fecal material in the cecum, ascending colon, and proximal transverse colon. Downstream colon well evacuated. No evidence of diverticulitis or colitis. Appendix: Surgical suture material extending across the cecal apex in keeping with the provided history of recent appendectomy. No right lower quadrant fluid or fluid collection demonstrated. Intraperitoneal space: Probable trace fluid in the deep pelvis. Scattered small foci of free air, presumably from the recent surgery. Vasculature: Normal caliber abdominal aorta. Lymph nodes: No pathologically enlarged mesenteric, retroperitoneal, or pelvic sidewall lymph nodes. Urinary bladder: Normal-appearing urinary bladder, moderately distended. Small focus of gas in the urinary bladder, nonspecific but commonly seen after recent bladder catheterization. Correlation with recent procedure history recommended. Reproductive: Normal-sized uterus and ovaries. Small peripherally enhancing right ovarian corpus luteum faintly demonstrated. Bones/joints: No acute fracture seen among the bones of the abdomen or pelvis. Soft tissues: No significant ventral or inguinal hernia. IMPRESSION: 1. Recent appendectomy. No evidence of a postop complication. 2. Normal-sized uterus and ovaries. Peripherally enhancing right ovarian corpus luteum faintly demonstrated. Trace fluid in the deep pelvis. 3. Moderate retained fecal material in the cecum, ascending colon, and proximal transverse colon. Downstream colon well evacuated. Dictated and Authenticated by: Pascual Taylor MD. Ordering:GRACIELA Cordova MD
[2023-12-12 01:13] VITALS: BP 125/69; PULSE 72; RESP 16; TEMP 36.9; O2SAT 99
== END 2023-12-12 01:14 | disposition home or self-care (01) ==
PROVIDERS: Emergency Provider Student in an Organized Health Care Education/Training Program; PCP Nurse Practitioner Family
DX: R10.33 Periumbilical pain (principal); N39.0 Urinary tract infection, site not specified; K59.00 Constipation, unspecified; Z98.890 Other specified postprocedural states
CPT/HCPCS: 80053; 83690; 96361; 96365; 99285; 74177; 81003; 81015; 83605; 85025; 99284; J0131; J1885; J2405; J3490

== ENCOUNTER → 2024-02-01 14:54 | Emergency (ER) | payer MEDICAID, SELFPAY ==
[2024-02-01] VITALS (20 sets, daily range): BP systolic 92–121; BP diastolic 35–69; PULSE 58–89; RESP 10–16; TEMP 36.3; O2SAT 96–99
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
--- NOTE | 2024-02-01 15:30 | DI.MRI_ITS ---
Exam(s) MR LUMBAR SPINE WO EXAM: MR LUMBAR SPINE WO CLINICAL HISTORY: horse fell on her, lower back pain. TECHNIQUE: Multiplanar multisequence MRI of the Lumbar spine was performed. COMPARISON: CT CT ABDOMEN PELVIS W from 12/12/2023 CR XR LUMBAR SPINE AP, LAT from 02/01/[address] scan of 12/12/2023 also reviewed. FINDINGS: Conus medullaris is at normal level. There is no evidence of conus mass nor subjacent clumping of in trathecal nerve roots to suggest arachnoiditis. The distal thecal sac appears unremarkable.There is no evidence of Tarlov intrasacral cysts nor other significant findings within the sacral canal Bones:There are no fractures nor ominous osseous lesions in the lumbar vertebral bodies and visualize d sacrum. A small benign intraosseous hemangioma is incidentally noted in the posterior inferior asp ect of T11 vertebral body. With respect to the individual levels... T12-L1: Unremarkable L1-2: Normal disc height and signal. No disc herniation nor central canal stenosis.No foraminal steno sis L2-3: Normal disc height. No disc herniation nor central canal stenosis.No foraminal stenosis.No face t arthropathy. L3-4: Normal disc height. No disc herniation or central canal stenosis.No foraminal stenosis.No face t arthropathy. L4-5: Normal disc height and signal. There is a small central subligamentous disc protrusion which e xtends posteriorly 2 mm and is 12 mm wide, slightly indenting the thecal sac. Central canal dimensio ns are within normal limits. There is no extension of the small disc protrusion into the exiting yu ral foramina. Facet joints appear unremarkable at this level. No foraminal stenosis. L5-S1: Normal disc height and signal. No disc herniation nor central canal stenosis. No foraminal s tenosis. No facet arthropathy. Soft tissues: paraspinal soft tissues appear unremarkable. IMPRESSION: 1. At the L4-5 level there is a E small central subligamentous disc protrusion which extends posterio rly 2 millimeters and is 12 millimeters wide, slightly indenting the anterior thecal sac. Central ca nal dimensions are within normal limits. There is no extension of the disc protrusion into the exiti ng neural foramen. There is no foraminal stenosis on either side nor significant facet arthropathy a t this level nor elsewhere in the lumbosacral spinal column. 2. All of the other levels in the lumbosacral spinal column appear unremarkable. 3. Incidentally noted is a small 3 x 2 mm degenerative synovial cyst coming off the posterior lateral aspect of the left facet joint at the L2-3 level. The extends posteriorly and does not impinge upon the spinal canal. There is no fracture or bone edema in the adjacent osseous elements. Report called by myself to ER provider 02/01/2024 7:10 p.m. DATA REPOSITORY:
--- NOTE | 2024-02-01 16:46 | DI.RAD_ITS ---
Exam(s) XR LUMBAR SPINE AP, LAT EXAM: XR LUMBAR SPINE AP, LAT CLINICAL HISTORY: horse fell on her, L back pain. TECHNIQUE: 2D digital imaging was performed. COMPARISON: No exams were available for comparison FINDINGS: 3 views No evidence of fracture, listhesis, nor pars defects. No disc space narrowing. No scoliosis. Bone density normal. No osseous lesions. SI joints appear unremarkable. IMPRESSION: No significant radiographic findings on these three views of the lumbosacral spinal column. DATA REPOSITORY: RADIATION DOSE DELIVERED:
[2024-02-01] MEDS: Acetaminophen 500 MG TAB 1000 MG PO (20:16)
[2024-02-01] MEDS: Lidocaine 5% Patch 1 PATCH TP (20:17)
[2024-02-01] MEDS: Ketorolac 10 MG TAB PO (20:17)
== END | disposition home or self-care (01) ==
LOC: ER 20:02 → RED 20:19
PROVIDERS: Emergency Provider Physician Assistant; PCP Nurse Practitioner Family
DX: M54.50 Low back pain, unspecified (principal); M51.26 Other intervertebral disc displacement, lumbar region; W22.8XXA Striking against or struck by other objects, initial encounter; V80.010A Animal-rider injured by fall from or being thrown from horse in noncollision accident, initial encounter; M79.672 Pain in left foot
CPT/HCPCS: 81025; 99283; 72100; 72148

== ENCOUNTER 2024-02-08 19:25 | Emergency (ER) | payer MEDICAID, SELFPAY ==
[2024-02-08 19:28] VITALS: BP 127/79; PULSE 89; RESP 16; TEMP 36.6; O2SAT 97
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
[2024-02-08] MEDS: valACYclovir 1,000 MG TAB 2000 MG PO (20:02)
== END 2024-02-08 20:04 | disposition home or self-care (01) ==
PROVIDERS: Emergency Provider Emergency Medicine; PCP Nurse Practitioner Family
DX: B00.1 Herpesviral vesicular dermatitis (principal)
CPT/HCPCS: 99283

== ENCOUNTER → 2024-02-11 14:10 | Outpatient (CLI) | payer MEDICAID, SELFPAY ==
--- NOTE | 2024-02-11 | DI.RAD_ITS ---
Exam(s) XR FOOT RT COMPLETE EXAM: XR FOOT RT COMPLETE CLINICAL HISTORY: PAIN. TECHNIQUE: 2D digital imaging was performed. Three views. COMPARISON: No exams were available for comparison FINDINGS: BONES: Nondisplaced transverse fracture at the base of the 5th metatarsal. The fracture does not inv olve the articular surface. No additional fractures. No bony destructive lesion is seen. JOINTS: No dislocation present. SOFT TISSUE: Normal. IMPRESSION: Nondisplaced fracture at the base of the 5th metatarsal. DATA REPOSITORY: RADIATION DOSE DELIVERED:
--- NOTE | 2024-02-11 15:17 | DI.VRAD_ITS ---
PROCEDURE INFORMATION: Exam: XR Right Foot Exam date and time: 02/11/2024 2:35 PM Age: 23 years old Clinical indication: Injury or trauma; Other: Horse injury; Blunt trauma; Foot; Right TECHNIQUE: Imaging protocol: Radiologic exam of the right foot. Views: 3 or more views. COMPARISON: No relevant prior studies available. FINDINGS: Bones/joints: Nondisplaced transverse fracture 5th metatarsal base. Soft tissues: Normal. IMPRESSION: Nondisplaced transverse fracture 5th metatarsal base. Dictated and Authenticated by: Eryn Reynolds MD. Ordering:MINERVA Montes De Oca MD
== END ==
PROVIDERS: PCP Nurse Practitioner Family; Visit Provider Physician Assistant Medical
DX: M79.671 Pain in right foot (principal); S92.354A Nondisplaced fracture of fifth metatarsal bone, right foot, initial encounter for closed fracture
CPT/HCPCS: 73630

== ENCOUNTER 2024-04-01 10:19 | Emergency (ER) | payer MEDICAID, SELFPAY ==
[2024-04-01 10:26] VITALS: BP 100/70; PULSE 87; RESP 16; TEMP 36.4; O2SAT 98
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
[2024-04-01] MEDS: Butalbital/Acetaminophen/Caffeine 50/325/40 TAB PO (11:07)
[2024-04-01] MEDS: Prochlorperazine 5 MG TAB PO (11:08)
[2024-04-01] MEDS: diphenhydrAMINE 25 MG CAP PO (11:08)
[2024-04-01] MEDS: Ketorolac 10 MG TAB PO (11:08)
[2024-04-01] MEDS: SUMAtriptan 25 MG TAB PO (11:08)
[2024-04-01] MEDS: Dexamethasone 10 MG/ML VIAL IVP (11:08)
== END 2024-04-01 11:52 | disposition home or self-care (01) ==
PROVIDERS: Emergency Provider Physician Assistant; PCP Nurse Practitioner Family
DX: G43.909 Migraine, unspecified, not intractable, without status migrainosus (principal)
CPT/HCPCS: 96374; 99284; 99283; J1100

== ENCOUNTER 2024-04-05 22:54 | Emergency (ER) | payer MEDICAID, SELFPAY ==
[2024-04-05 22:56] VITALS: BP 128/74; PULSE 85; RESP 18; TEMP 36.6; O2SAT 98
[2024-04-05 23:01] VITALS: RESP 18
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
[2024-04-05] MEDS: ACETAMINOPHEN 1,000 MG/100 ML BTL 400 MG IVPB (23:51)
[2024-04-05] MEDS: Normal Saline 1,000 ML 1000 ML IV (23:52)
[2024-04-05] MEDS: SUMAtriptan 6 MG/0.5 ML VIAL SC (23:52)
[2024-04-05] MEDS: diphenhydrAMINE 50 MG/ML VIAL 25 MG IVP (23:52)
[2024-04-05] MEDS: Prochlorperazine 10 MG/2 ML VIAL IVP (23:52)
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
[2024-04-06] MEDS: Normal Saline - Diluent 50 ML VIAL IJ (00:20)
[2024-04-06] MEDS: Omnipaque 350 MG/ML 100 ML BTL IJ (00:20)
--- NOTE | 2024-04-06 01:47 | DI.VRAD_ITS ---
PROCEDURE INFORMATION: Exam: CTA Head Without And With Contrast, Arteriography Exam date and time: 04/06/2024 12:09 AM Age: 23 years old Clinical indication: Pain; Headache; Additional info: Severe CAMPBELL, subjective L facial numbness TECHNIQUE: Imaging protocol: Computed tomographic angiography of the head without and with contrast. Exam focused on the arteries. 3D rendering (Not supervised by radiologist): MIP and/or 3D reconstructed images were created by the technologist. Contrast material: OMNI 350; Contrast volume: 70 ml; Contrast route: INTRAVENOUS (IV); COMPARISON: No relevant prior studies available. FINDINGS: ANTERIOR CIRCULATION: Right internal carotid artery: Intracranial segment is patent with no significant stenosis or occlusion. No aneurysm. Right middle cerebral artery: No occlusion or significant stenosis. No aneurysm. Right anterior cerebral artery: No occlusion or significant stenosis. No aneurysm. Left internal carotid artery: Intracranial segment is patent with no significant stenosis. No aneurysm. Left middle cerebral artery: No occlusion or significant stenosis. No aneurysm. Left anterior cerebral artery: No occlusion or significant stenosis. No aneurysm. POSTERIOR CIRCULATION: Right vertebral artery: No occlusion or significant stenosis. No aneurysm. Left vertebral artery: No occlusion or significant stenosis. No aneurysm. Basilar artery: No occlusion or significant stenosis. No aneurysm. Right posterior cerebral artery: No occlusion or significant stenosis. No aneurysm. Left posterior cerebral artery: No occlusion or significant stenosis. No aneurysm. HEAD: Brain: No brain edema. No intracranial hemorrhage. Cerebral ventricles: Normal. No ventriculomegaly. Bones: Unremarkable. No acute fracture. Paranasal sinuses: Partial opacification of the frontoethmoid sinuses may significant sinusitis. Mastoid air cells: Visualized mastoids are normal. No mastoid effusion. Soft tissues: Unremarkable. IMPRESSION: 1. Partial opacification of the frontoethmoid sinuses may significant sinusitis. 2. No acute brain findings. PROCEDURE INFORMATION: Exam: CTA Neck Without And With Contrast Exam date and time: 04/06/2024 12:09 AM Age: 23 years old Clinical indication: Pain; Headache; Additional info: Severe CAMPBELL, subjective L facial numbness TECHNIQUE: Imaging protocol: Computed tomographic angiography of the neck without and with contrast. Exam focused on the cervical segments of the vasculature. 3D rendering (Not supervised by radiologist): MIP and/or 3D reconstructed images were created by the technologist. Contrast material: OMNI 350; Contrast volume: 70 ml; Contrast route: INTRAVENOUS (IV); COMPARISON: CR XR RIBS LT W PA LAT CHEST 08/10/2023 12:33 PM FINDINGS: Right common carotid artery: No stenosis. No dissection or occlusion. Right internal carotid artery: No stenosis of the extracranial segment. No dissection or occlusion. Right external carotid artery: No occlusion or stenosis of the origin. Left common carotid artery: No stenosis. No dissection or occlusion. Left internal carotid artery: No stenosis of the extracranial segment. No dissection or occlusion. Left external carotid artery: No occlusion or stenosis of the origin. Right vertebral artery: No stenosis. No dissection or occlusion. Left vertebral artery: No stenosis. No dissection or occlusion. Soft tissues: Normal. No significant soft tissue swelling. Bones/joints: No acute fracture. IMPRESSION: No stenosis or occlusion. REFERENCES: NASCET CRITERIA. The degree of stenosis in the cervical segment of the internal carotid artery is based on NASCET criteria. Normal is no stenosis. Mild is less than 50% stenosis. Moderate is 50-69% stenosis. Severe is 70% to 99% stenosis. Total occlusion is no detectable patent lumen. Dictated and Authenticated by: Dairn Macias MD. Ordering:CASSY Chan MD
[2024-04-06] MEDS: Ketorolac 15 MG/ML VIAL IVP (02:18)
== END 2024-04-06 02:21 | disposition home or self-care (01) ==
PROVIDERS: Emergency Provider Student in an Organized Health Care Education/Training Program; PCP Nurse Practitioner Family
DX: G43.909 Migraine, unspecified, not intractable, without status migrainosus (principal); H53.8 Other visual disturbances; J32.9 Chronic sinusitis, unspecified
CPT/HCPCS: 70496; 70498; 81025; 96365; 96372; 96375; 99285; 99284; J0131; J0780; J1200; J1885; J3030; J3490

== ENCOUNTER 2024-09-12 08:54 | Outpatient (CLI) | payer MEDICAID, SELFPAY ==
--- NOTE | 2024-09-12 | DI.RAD_ITS ---
Exam(s) XR RIBS LT W PA LAT CHEST EXAM: XR RIBS LT W PA LAT CHEST CLINICAL HISTORY: Acute thoracic back pain, M54.6. TECHNIQUE: 2D digital imaging was performed. COMPARISON: CR XR RIBS LT W PA LAT CHEST from 08/10/2023 FINDINGS: Total 6 views Left ribs-four views: There are no left rib fractures identified. No left rib lesions. Chest x-ray-two views Heart size is normal. The mediastinum is not widened. There are no infiltrates nor pleural effusions. No pneumothorax. No fractures. IMPRESSION: No left rib fractures No significant pulmonary findings. DATA REPOSITORY: RADIATION DOSE DELIVERED:
--- NOTE | 2024-09-12 16:23 | DI.RAD_ITS ---
Exam(s) XR THORACIC SPINE COMPLETE EXAM: XR THORACIC SPINE COMPLETE CLINICAL HISTORY: Acute thoracic back pain, M54.6. TECHNIQUE: 2D digital imaging was performed. COMPARISON: No exams were available for comparison FINDINGS: 3 views No evidence fracture or listhesis. No disc space narrowing. No significant scoliosis. No abnormal widening of the paraspinal lines. Bone density is normal. No osseous lesions. IMPRESSION: No significant radiographic findings in the thoracic spinal column. DATA REPOSITORY: RADIATION DOSE DELIVERED:
== END 2024-09-12 09:14 ==
PROVIDERS: PCP Nurse Practitioner Family; Visit Provider Nurse Practitioner Family
DX: M54.6 Pain in thoracic spine (principal)
CPT/HCPCS: 71046; 71100; 72072

== ENCOUNTER 2024-11-02 00:25 | Outpatient (CLI) | payer MEDICAID, SELFPAY ==
--- NOTE | 2024-11-02 07:45 | DI.US_ITS ---
Exam(s) US BREAST LT COMPLETE US BREAST RT COMPLETE MG MAMMO DIAGNOSTIC BI EXAM: MG MAMMO DIAGNOSTIC BI AND BILATERAL COMPLETE BREAST ULTRASOUND CLINICAL HISTORY: bilat breast pain. TECHNIQUE: Bilateral CC and MLO mammographic images were obtained with 3D tomosynthesis technique an d utilizing computer aided detection (CAD). Today's mammogram was performed following today's ultrasound COMPLETE BILATERAL BREAST ULTRASOUND performed including all 4 quadrants well as the retroareolar reg ions and both axillary regions. There is a significant family history here. Her mother was diagnosed with breast cancer in her 20s. Her sisters were also diagnosed with breast cancer at a young age as was her grandmother. This 24-year-old patient complains of left breast pain (no mass felt) and occasional possibly bloody right nipple discharge and mild skin redness over the right breast, not associated with breast-feedin g, fever, skin rash, nor axillary lymphadenopathy. COMPARISON: None. This is 1st time breast imaging for this 24-year-old. FINDINGS: DIAGNOSTIC BILATERAL MAMMOGRAM: The fibroglandular tissue pattern is moderately dense. There are no obvious spiculated masses nor malignant-appearing microcalcification groups in either br east. There is no significant architectural distortion or skin thickening-retraction. BILATERAL COMPLETE BREAST ULTRASOUND: There is no evidence of solid or significant cystic lesions in all 4 quadrants of both breasts. Also no findings in the retroareolar regions. There is no adenopathy in the axillary regions IMPRESSION: 1. No radiographic evidence of malignancy. 2. Negative complete bilateral breast ultrasound 3. Given this patient's extremely positive family history with mother, grandmother and sisters diagno sed with breast cancer at early age, I recommend testing for BRCA gene and screening breast MRI The patient was informed of the findings and follow-up recommendations by myself prior to leaving the department today. BI-RADS Category 0 - Incomplete: Need additional imaging evaluation with MRI Breast Density - Category C - Heterogeneously dense Breast density Category C or D implies that the patient has dense breast tissue. Dense breast tissue can make it harder to find cancer on a mammogram. Dense breast tissue is also associated with an incr eased risk of breast cancer. This information about the result of the mammogram report was provided to the patient to raise their awareness. Use this report when you speak with the patient about their risks for breast cancer, which includes their family history. At that time, you may recommend additional screening tests (Ultrasoun d or MRI) as these tests may add significant information. A negative radiographic report should not delay biopsy if a dominant or clinically suspicious mass is present. Up to ten percent of cancers are not identified on mammography. A negative report may reinforce clinical impression. Adenosis and dense breasts may obscure an underlying neoplasm. False positive reports average 6 to 10%. Patient will receive a letter notifying them of these results.
== END 2024-11-02 00:45 ==
PROVIDERS: PCP Nurse Practitioner Family; Visit Provider Nurse Practitioner Women's Health
DX: N64.4 Mastodynia (principal); Z12.31 Encounter for screening mammogram for malignant neoplasm of breast; Z80.3 Family history of malignant neoplasm of breast
CPT/HCPCS: 76642; 77062; 77066; G0279

== ENCOUNTER 2024-12-18 20:25 | Emergency (ER) | payer MEDICAID, SELFPAY ==
[2024-12-18 20:26] VITALS: BP 119/62; PULSE 125; RESP 18; TEMP 36.9; O2SAT 98
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
[2024-12-18 21:49] LABS: *AMPHETAMINES SCREEN URINE Negative (Negative); *BARBITURATES SCREEN URINE Negative (Negative); *BENZODIAZEPINES SCREEN URINE Negative (Negative); Cannabinoids THC Negative (Negative); Cocaine Screen,Urine Negative (Negative); METHADONE URINE SCREEN Negative (Negative); OPIATES URINE SCREEN Negative (Negative)
[2024-12-18 21:53] LABS: Tricyclic Antidepressants Negative (Negative)
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
== END 2024-12-18 23:11 | disposition home or self-care (01) ==
LOC: ER 23:23
PROVIDERS: Emergency Provider Registered Nurse Emergency; PCP Nurse Practitioner Family
DX: R45.851 Suicidal ideations (principal); F32.A Depression, unspecified; F43.9 Reaction to severe stress, unspecified
CPT/HCPCS: 00123; 80307; 81025; 96127; 99284

== ENCOUNTER 2025-02-17 10:20 | Emergency (ER) | payer MEDICAID, SELFPAY ==
[2025-02-17 10:22] VITALS: BP 126/85; PULSE 90; RESP 16; TEMP 36.8; O2SAT 98
[2025-02-17 12:53] VITALS: BP 126/85; PULSE 90; RESP 16; TEMP 36.8; O2SAT 98
[2025-02-17 13:12] LABS: ALT 19 U/L (14-59); AST 13 U/L (15-37); Albumin 4.0 g/dL (3.4-5.0); Alkaline Phosphatase 77 U/L (46-116); Bilirubin, Direct 0.1 mg/dL (0.0-0.2); Bilirubin, Total 0.6 mg/dL (0.2-1.0); Total Protein 7.9 g/dL (6.4-8.2)
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
--- NOTE | 2025-02-18 10:16 | NUR.NOTE ---
Nursing Note: Received call from patient that her prescription that was sent to [place] pharmacy is not available and has to be ordered. She was wondering if she could come back here to receive it. Our pharmacy reports it's not here either. Patient states it's available at the [facility] pharmacy but her pharmacist wasn't sure if her [place] medicaid would cover it. Instructed to have the prescription sent to the pharmacy in [place] that has the medication in stock and if she has any trouble with her insurance not covering it to call back
[2025-02-18 19:09] LABS: HBs Antibody, Quant 21.1 mIU/mL (See Note); Hepatitis B Surface Ab Positive (See Note)
[2025-02-20 15:48] LABS: Hepatitis C Ab w Rflx HCV PCR Negative (Negative)
== END 2025-02-17 12:53 | disposition home or self-care (01) ==
PROVIDERS: Emergency Provider Physician Assistant; PCP Nurse Practitioner Family
DX: Z20.6 Contact with and (suspected) exposure to human immunodeficiency virus [HIV] (principal)
CPT/HCPCS: 99283 ×2; 80076; 86706; 86803; 87340

== ENCOUNTER 2025-04-19 03:18 | Outpatient (CLI) | payer OTHER, SELFPAY ==
--- NOTE | 2025-04-19 07:00 | DI.MRI_ITS ---
Exam(s) MR LOWER JOINT LT WO EXAM: MR LOWER JOINT LT WO CLINICAL HISTORY: PATELLA FX, KNEE PAIN,internal derangement,m23.92,s82.002a TECHNIQUE: Multiplanar multisequence MRI of the knee was performed. COMPARISON: CR XR KNEE COMPLETE MIN 4V LT from 03/25/2025 (outside institution images) FINDINGS: EFFUSION: There is a small amount of increased joint fluid. There is no large joint effusion and there is no Estrada cyst in the popliteal fossa. MARROW:No evidence of fracture or bone contusions in the femoral condyles and tibial plateau nor within the fibular head and neck. Bipartite patella noted (lateral aspect). There is mild increased signal on both sides of the synchondrosis PATELLOFEMORAL COMPARTMENT: The quadriceps tendon is intact. The patellar ligament is unremarkable and exhibits normal thickness. There is no significant thinning of the retropatellar cartilage. No evidence of fissure nor significant chondral defect. No osteochondral defect at this level.There is no intraosseous signal to suggest recent patellar dislocation. There are no patellar retinacular tears. No evidence of Fishs Eddy Schlatter's. There is no evidence of Sinding-Ngo- Miguel findings at the inferior pole level of the patella. There is very mild increased signal in the superolateral aspect of the anterior intra-articular Hoffa fat pad. CRUCIATE LIGAMENTS: The anterior cruciate ligament is intact.The posterior cruciate ligament is intact. MEDIAL COMPARTMENT/MEDIAL MENISCUS: There are no tears of the medial meniscus evident.. There are no chondral defects, osteochondral defects, subarticular marrow edema, nor osteophytes evident. MEDIAL COLLATERAL LIGAMENT: Unremarkable LATERAL COMPARTMENT/LATERAL MENISCUS: There is no evidence of lateral meniscal tear.There are no chondral defects, osteochondral defects, subarticular marrow edema, nor osteophytes evident. ILIOTIBIAL BAND: Intact LATERAL COLLATERAL LIGAMENT COMPLEX: The fibular collateral ligament is intact. The biceps femoris tendon is intact.Popliteus muscle and tendon are intact. IMPRESSION: 1. No evidence of meniscal nor cruciate ligament tears and there are no degenerative changes nor osteochondral defects nor loose intra-articular bodies. There is only a small amount of increased joint fluid. No prominent joint effusion evident and no Estrada's cyst. 2. The MCL and lateral collateral ligament complex appear unremarkable. 3. Developmental Bipartite patella (lateral bipartite type) which exhibits mild increased signal on the unfused segment side and synchondrosis. Correlation with site of tenderness is recommended. This is not a fracture. 4. Very mild increased signal noted in the superolateral aspect of the fat within the anterior intra-articular Hoffa fat pad. This can sometimes indicate an element of impingement syndrome. DATA REPOSITORY:
== END 2025-04-19 03:38 ==
LOC: DI 03:19
PROVIDERS: PCP Nurse Practitioner Family; Visit Provider Student in an Organized Health Care Education/Training Program
DX: M23.92 Unspecified internal derangement of left knee (principal); S82.002A Unspecified fracture of left patella, initial encounter for closed fracture
CPT/HCPCS: 73721

== ENCOUNTER 2025-06-08 09:25 | Emergency (ER) | payer MEDICAID, SELFPAY ==
--- NOTE | 2025-06-08 09:15 | RT.EKG_ITS ---
APPROVED REPORT Exam: Resting ECG Reason for Exam: chest pain Patient Location: E HR:80 bpm ECG Measurements Heart Rate 80 AXIS AL 146 P 9 QRSd 83 QRS 49 QT 389 T 33 QTc 449 Conclusion Sinus rhythm...normal P axis, V-rate 60- 99 No Occlusion SD
[2025-06-08 09:31] VITALS: BP 116/81; PULSE 84; RESP 12; TEMP 36.8; O2SAT 98
[2025-06-08 09:38] VITALS: RESP 16
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
--- NOTE | 2025-06-08 09:45 | DI.RAD_ITS ---
Exam(s) XR CHEST 2V PA LATERAL EXAM: XR CHEST 2V PA LATERAL CLINICAL HISTORY: Chest pain TECHNIQUE: 2D digital imaging was performed of the chest. Two images were obtained. PA and lateral views were obtained. COMPARISON: CR XR RIBS LT W PA LAT CHEST from 08/10/2023 CR XR RIBS LT W PA LAT CHEST from 09/12/2024 FINDINGS: MEDIASTINUM: Normal. HEART: Normal. PULMONARY VASCULATURE: Normal. LUNGS: Clear. PLEURAL SPACE: No pleural effusion or pneumothorax. BONE:Within normal limits for the patient's age. OTHER FINDINGS:Normal. IMPRESSION: 1. No acute pulmonary findings. 2. The preliminary [facility] report was reviewed. DATA REPOSITORY: RADIATION DOSE DELIVERED:
[2025-06-08 09:58] LABS: Abs Immature Grans 0.02 10^3/uL (0.0-0.06); HCT 42.0 % (36.0-46.0); HGB 15.0 g/dL (11.2-15.7); Immature Grans % 0.3 %; MCH 31.8 pg (27.0-33.0); MCHC 35.7 % (32.0-36.0); MCV 89 fL (80-95); MPV 9.8 fL (8.0-11.0); Platelet Count 308 10^3/uL (130-400); RBC 4.71 10^6/uL (3.93-5.22); RDW 11.9 % (11.7-14.6); RDW-SD 38.7 fL; WBC 7.20 10^3/uL (4.4-10.8)
[2025-06-08] MEDS: Ketorolac 15 MG/ML VIAL IVP (10:07)
[2025-06-08 10:12] LABS: Lipase 27 U/L (<53)
[2025-06-08 10:15] LABS: ALT 13 U/L (10-49); AST 16 U/L (<34); Albumin 4.3 g/dL (3.2-5.0); Alkaline Phosphatase 78 U/L (46-116); Anion Gap 7.1 mmol/L (3-11); BUN 11 mg/dL (9-23); Bilirubin, Total 1.00 mg/dL (0.2-1.2); CO2 24.9 mmol/L (20.0-31.0); Calcium 9.0 mg/dL (8.3-10.6); Chloride 109 mmol/L (98-107); Glucose 92 mg/dL (74-106); Potassium 3.9 mmol/L (3.5-5.1); Sodium 141 mmol/L (136-145); Total Protein 7.7 g/dL (5.7-8.2)
[2025-06-08 10:17] LABS: Troponin I < 3 ng/L (<35)
[2025-06-08 10:26] LABS: COVID-19 PCR Negative (Negative); RSV PCR Negative (Negative)
[2025-06-08 10:31] LABS: HCG Qual (Serum) Negative
--- NOTE | 2025-06-08 10:55 | DI.[facility]_ITS ---
PROCEDURE INFORMATION: Exam: XR Chest Exam date and time: 06/08/2025 10:46 AM Age: 24 years old Clinical indication: Other: Chest pain TECHNIQUE: Imaging protocol: Radiologic exam of the chest. Views: 2 views. COMPARISON: CR XR RIBS LT W PA LAT CHEST 09/12/2024 4:04 PM FINDINGS: Lungs: Unremarkable. No consolidation. Pleural spaces: Unremarkable. No pleural effusion. No pneumothorax. Heart/Mediastinum: Unremarkable. No cardiomegaly. Bones/joints: Unremarkable. IMPRESSION: No acute findings. Dictated and Authenticated by: Inocencio Horne MD. Orderin Karlie Hinojosa MD
[2025-06-08 11:58] LABS: Troponin I < 3 ng/L (<35)
[2025-06-08 12:13] VITALS: BP 90/46; PULSE 77; TEMP 37; O2SAT 98
[2025-06-08 12:16] VITALS: PULSE 77; RESP 16; TEMP 37; O2SAT 98
== END 2025-06-08 15:34 | disposition home or self-care (01) ==
PROVIDERS: Emergency Provider Emergency Medicine; PCP Nurse Practitioner Family
DX: R07.9 Chest pain, unspecified (principal)
CPT/HCPCS: 36415; 80053; 83690; 87637; 93005; 93308; 96374; 99285; 71046; 84484; 84703; 85025; 93010; 99284; J1885

== ENCOUNTER 2025-06-14 02:03 | Outpatient (CLI) | payer MEDICAID, SELFPAY ==
[2025-06-14 11:09] LABS: ALT 16 U/L (10-49); AST 17 U/L (<34); Albumin 4.4 g/dL (3.2-5.0); Alkaline Phosphatase 75 U/L (46-116); Anion Gap 9.3 mmol/L (3-11); BUN 11 mg/dL (9-23); Bilirubin, Total 0.70 mg/dL (0.2-1.2); CO2 26.7 mmol/L (20.0-31.0); Calcium 8.9 mg/dL (8.3-10.6); Chloride 106 mmol/L (98-107); Glucose 91 mg/dL (74-106); Potassium 3.6 mmol/L (3.5-5.1); Sodium 142 mmol/L (136-145); Total Protein 7.6 g/dL (5.7-8.2)
[2025-06-14 19:00] LABS: Hepatitis C Ab w Rflx HCV PCR Negative (Negative)
[2025-06-14 19:05] LABS: HIV-1/2 Ag & Ab Screen Negative (Negative)
[2025-06-17 11:51] LABS: TB Interpretation Negative (Negative); TB1 Ag minus Nil 0.00 IU/mL; TB2 Ag minus Nil 0.01 IU/mL
== END 2025-06-14 02:04 | disposition home or self-care (01) ==
LOC: LBO 02:03
PROVIDERS: PCP Nurse Practitioner Family; Visit Provider Nurse Practitioner Family
DX: Z11.1 Encounter for screening for respiratory tuberculosis; Z11.4 Encounter for screening for human immunodeficiency virus [HIV]; Z11.59 Encounter for screening for other viral diseases; Z11.9 Encounter for screening for infectious and parasitic diseases, unspecified
CPT/HCPCS: 36415; 80053; 86803; 87389; 86480

== ENCOUNTER 2025-06-24 13:29 | Outpatient (REF) | payer MEDICAID, SELFPAY ==
[2025-06-25 13:36] LABS: Chlamydia Result Positive (Negative); GC Result Positive (Negative)
== END 2025-06-24 13:30 | disposition home or self-care (01) ==
LOC: LBN 13:29
PROVIDERS: PCP Nurse Practitioner Family; Visit Provider Nurse Practitioner Women's Health
DX: Z11.3 Encounter for screening for infections with a predominantly sexual mode of transmission (principal)
CPT/HCPCS: 87491; 87591

== ENCOUNTER 2025-06-24 13:41 | Outpatient (CLI) | payer MEDICAID, SELFPAY ==
[2025-06-25 01:11] LABS: Hepatitis C Ab w Rflx HCV PCR Negative (Negative)
[2025-06-25 01:15] LABS: HIV-1/2 Ag & Ab Screen Negative (Negative)
[2025-06-26 22:37] LABS: Syphilis IgG w/Reflex Nonreactive (Nonreactive)
== END 2025-06-24 13:42 | disposition home or self-care (01) ==
LOC: LBO 13:41
PROVIDERS: PCP Nurse Practitioner Family; Visit Provider Nurse Practitioner Women's Health
DX: Z11.3 Encounter for screening for infections with a predominantly sexual mode of transmission (principal)
CPT/HCPCS: 36415; 86803; 87389; 86780